=== PATIENT | female | born 1970 | race Caucasian/White ===

== ENCOUNTER 2017-01-20 17:29 | Inpatient (IN) ==
--- NOTE | 2017-01-20 18:48 | Emergency Department Note ---
Disposition Clinical Impression: Suicidal ideation Depression Qualifiers: Depression Type: major depressive disorder Major depression recurrence: recurrent Active/Remission status: currently active Major depression episode severity: moderate Qualified Code(s): F33.1 - Major depressive disorder, recurrent, moderate Disposition: Admitted As Inpatient Referrals: NO,PCP [Primary Care Provider] - Forms: ED Satisfaction Letter Time of Disposition: 22:51 General Adult HPI - General Chief complaint: ED Psychiatric Symptoms Stated complaint: SI Time Seen by Provider: 01/20/17 17:46 Source: patient Limitations: no limitations Nursing Notes Reviewed: Yes Vital Signs Reviewed: Yes - History of Present Illness HPI Narrative: History of present illness: 47-year-old female presents with family to the emergency department with chief complaint of depression and suicidal ideations. Patient has been depressed for 2-3 months since tried on several attempts in the past with intentional overdose. She says that she is getting worse has not ingested anything today. Feels like she cannot cope anymore. He has stopped taking her antidepressant medication for the past month or so. And currently does not have a counselor. She follows up with a primary care provider Dr. Langford. Patient here for further evaluation. Pain Scale: 10 - Related Data Home Medications Medication Instructions Recorded Confirmed Naproxen [Naprosyn] 500 mg PO BID PRN 07/14/16 07/14/16 Allergies Allergy/AdvReac Type Severity Reaction Status Date / Time No Known Allergies Allergy Verified 07/13/16 22:33 All systems ED: reviewed and negative except as stated. Psychiatric: Reports: depression, suicidal thoughts. Denies: homicidal thoughts , auditory hallucinations Past Medical History - Past Medical History Attestation: Yes The following information was validated with the patient. Source: patient, old records reviewed Medical history: Reports: asthma, diabetes, hypertension, thyroid disease Surgical history: Reports: cholecystectomy, other Psychiatric history: Reports: anxiety, depression - Social History Smoking Status: Current every day smoker Smokeless Tobacco Status: No Alcohol use: Reports: none Drug use: Reports: marijuana Physical Exam - General Limitations: no limitations General appearance: alert, anxious, in distress - Head Head exam: atraumatic, normocephalic - Eye Eye exam: Present: normal appearance, PERRL, EOMI - ENT ENT exam: normal exam, normal oropharynx - Neck Neck exam: Present: normal inspection, full ROM - Chest Chest inspection: Present: normal inspection, symmetric chest wall rise - Respiratory Respiratory exam: Present: normal lung sounds bilaterally - Cardiovascular Cardiovascular exam: Present: regular rate, normal rhythm - Abdominal Exam Abdominal exam: Present: soft, Non-Tender - Extremities Exam Extremities exam: Present: normal inspection, full ROM - Expanded Lower Extremity Exam Neurovascular/Tendon exam: Present: normal capillary refill Gait: observed and normal - Back Exam Back exam: Present: normal inspection, full ROM - Neurological Exam Neurological exam: Present: alert, oriented X3, CN II-XII intact - Psychiatric Psychiatric exam: Present: depressed Course - Reevaluation(s) Reevaluation #1: Patient's physical examination is benign she is tearful and upset but cooperative. Patient will undergo medical clearance and then be evaluated by the mental health service. Disposition pending. Patient stable. Time: 18:47 Reevaluation #2: ED workup is complete. Urinalysis positive for marijuana and cocaine. Calls being made to mental health for evaluation. Patient resting in bed comfortably disposition pending. Patient is currently medically cleared for mental health evaluation Time: 20:09 Reevaluation #3: Patient was evaluated by mental health services and determined to require inpatient observation and management and treatment. Patient was previously accepted by the psychiatric attending DR. OMALLEY Time: 22:48 Vital Signs Temperature 97.5 F L 01/20/17 17:40 Pulse Rate 85 01/20/17 17:40 Respiratory Rate 16 01/20/17 17:40 Blood Pressure 207/103 01/20/17 17:40 O2 Sat by Pulse Oximetry 94 01/20/17 17:40 Temperature 97.5 F L 01/20/17 17:40 Pulse Rate 85 01/20/17 17:40 Respiratory Rate 16 01/20/17 17:40 Blood Pressure 207/103 01/20/17 17:40 O2 Sat by Pulse Oximetry 94 01/20/17 17:40 Oxygen Delivery Oxygen Delivery Room Air Medical Decision Making - Lab Data Result diagrams: 01/20/17 18:44 01/20/17 18:44 Lab Results 01/20/17 01/20/17 01/20/17 Range/Units 18:44 18:44 19:40 WBC 10.1 (4.3-11.1) K/mcL RBC 5.82 H (3.82-4.97) M/mcL Hgb 16.1 H (11.5-15.4) g/dL Hct 49.4 H (35.3-44.9) % MCV 84.9 (83.0-100.0) fL MCH 27.7 L (28.0-33.3) pg MCHC 32.6 (31.6-35.5) g/dL RDW 13.4 (11.5-14.5) % Plt Count 314 (140-400) K/mcL MPV 10.5 (9.4-12.4) fL Immature Gran % 0.4 (0-4) % Seg Neutrophils % 62.5 % Lymphocytes % 28.4 % Monocytes % 7.2 % Eosinophils % 0.8 % Basophils % 0.7 % Neutrophils # 6.3 (1.6-8.9) K/mcL Lymphocytes # 2.9 (0.6-4.6) K/mcL Monocytes # 0.7 (0.0-1.3) K/mcL Eosinophils # 0.1 (0.0-0.6) K/mcL Basophils # 0.1 (0.0-0.2) K/mcL Sodium 141 (136-145) mEq/L Potassium 3.9 (3.5-4.5) mEq/L Chloride 109 (98-109) mEq/L Carbon Dioxide 23 (19-29) mEq/L BUN 13 (7-20) mg/dL Creatinine 0.94 (0.57-1.11) mg/dL Est GFR ( Amer) > 60 (> 60) Est GFR (Non-Af Amer) > 60 (> 60) BUN/Creatinine Ratio 14 (6-26) Glucose 96 (70-99) mg/dL Calculated Osmolality 292 (280-300) Calcium 9.3 (8.6-10.8) mg/dL Urine Color Yellow (Yellow) Urine Clarity Cloudy A (Clear) Urine pH 5.5 (5.0-8.0) pH Units Ur Specific [place] 1.022 (1.010-1.025) Urine Protein Negative (Neg-Trace) mg/dL Urine Glucose (UA) Normal (Normal) mg/dL Urine Ketones Negative (Negative) mg/dL Urine Blood Negative (Negative) Urine Nitrite Negative (Negative) Urine Bilirubin Negative (Negative) Urine Urobilinogen Normal (Normal) mg/dL Ur Leukocyte Esterase Moderate H (Negative) Urine Microscopic RBC 0-3 (0-3) per hpf Urine Microscopic WBC 15-30 H (0-3) per hpf Ur Squamous Epith Cells Many H (None-Few) per lpf Urine Bacteria None Seen (None-Few) per hpf Hyaline Casts None Seen (None-Few) per lpf Salicylates < 5.0 L (15-30) mg/dL Urine Opiates Screen (Nbnabq=587) ng/mL Acetaminophen < 1.0 L (10-30) mcg/mL Ur Barbiturates Screen (Ehpoyn=078) ng/mL Ur Phencyclidine Scrn (Cutoff=25) ng/mL Ur Amphetamines Screen (Aagokh=7723) ng/mL U Benzodiazepines Scrn (Ijxrns=821) ng/mL Urine Cocaine Screen (Cutoff= 300) ng/mL U Marijuana (THC) Screen (Cutoff = 50) ng/mL Ethyl Alcohol < 10 (0-10) mg/dL 01/20/17 Range/Units 19:40 WBC (4.3-11.1) K/mcL RBC (3.82-4.97) M/mcL Hgb (11.5-15.4) g/dL Hct (35.3-44.9) % MCV (83.0-100.0) fL MCH (28.0-33.3) pg MCHC (31.6-35.5) g/dL RDW (11.5-14.5) % Plt Count (140-400) K/mcL MPV (9.4-12.4) fL Immature Gran % (0-4) % Seg Neutrophils % % Lymphocytes % % Monocytes % % Eosinophils % % Basophils % % Neutrophils # (1.6-8.9) K/mcL Lymphocytes # (0.6-4.6) K/mcL Monocytes # (0.0-1.3) K/mcL Eosinophils # (0.0-0.6) K/mcL Basophils # (0.0-0.2) K/mcL Sodium (136-145) mEq/L Potassium (3.5-4.5) mEq/L Chloride (98-109) mEq/L Carbon Dioxide (19-29) mEq/L BUN (7-20) mg/dL Creatinine (0.57-1.11) mg/dL Est GFR ( Amer) (> 60) Est GFR (Non-Af Amer) (> 60) BUN/Creatinine Ratio (6-26) Glucose (70-99) mg/dL Calculated Osmolality (280-300) Calcium (8.6-10.8) mg/dL Urine Color (Yellow) Urine Clarity (Clear) Urine pH (5.0-8.0) pH Units Ur Specific [place] (1.010-1.025) Urine Protein (Neg-Trace) mg/dL Urine Glucose (UA) (Normal) mg/dL Urine Ketones (Negative) mg/dL Urine Blood (Negative) Urine Nitrite (Negative) Urine Bilirubin (Negative) Urine Urobilinogen (Normal) mg/dL Ur Leukocyte Esterase (Negative) Urine Microscopic RBC (0-3) per hpf Urine Microscopic WBC (0-3) per hpf Ur Squamous Epith Cells (None-Few) per lpf Urine Bacteria (None-Few) per hpf Hyaline Casts (None-Few) per lpf Salicylates (15-30) mg/dL Urine Opiates Screen Negative (Jojelj=200) ng/mL Acetaminophen (10-30) mcg/mL Ur Barbiturates Screen Negative (Kvfzvs=592) ng/mL Ur Phencyclidine Scrn Negative (Cutoff=25) ng/mL Ur Amphetamines Screen Negative (Zyqwqq=1474) ng/mL U Benzodiazepines Scrn Negative (Lsjbqs=477) ng/mL Urine Cocaine Screen Positive H (Cutoff= 300) ng/mL U Marijuana (THC) Screen Positive H (Cutoff = 50) ng/mL Ethyl Alcohol (0-10) mg/dL
[2017-01-20 18:52] LABS: Basophils # 0.1 K/mcL (0.0-0.2); Basophils % 0.7 %; Eosinophils # 0.1 K/mcL (0.0-0.6); Eosinophils % 0.8 %; Hematocrit 49.4 % (35.3-44.9); Hemoglobin 16.1 g/dL (11.5-15.4); Immature Granulocytes % 0.4 % (0-4); Lymphocytes # 2.9 K/mcL (0.6-4.6); Lymphocytes % 28.4 %; Mean Corpuscular HGB Conc 32.6 g/dL (31.6-35.5); Mean Corpuscular Hemoglobin 27.7 pg (28.0-33.3); Mean Corpuscular Volume 84.9 fL (83.0-100.0); Mean Platelet Volume 10.5 fL (9.4-12.4); Monocytes # 0.7 K/mcL (0.0-1.3); Monocytes % 7.2 %; Neutrophils # 6.3 K/mcL (1.6-8.9); Platelet Count 314 K/mcL (140-400); Red Blood Count 5.82 M/mcL (3.82-4.97); Red Cell Distribution Width 13.4 % (11.5-14.5); Segmented Neutrophils % 62.5 %
[2017-01-20 19:04] LABS: BUN/Creatinine Ratio 14 (6-26); Blood Urea Nitrogen 13 mg/dL (7-20); Calcium 9.3 mg/dL (8.6-10.8); Carbon Dioxide 23 mEq/L (19-29); Chloride 109 mEq/L (98-109); Glucose 96 mg/dL (70-99); Osmolality,Calculated 292 (280-300); Potassium 3.9 mEq/L (3.5-4.5); Sodium 141 mEq/L (136-145); eGFR For African Americans > 60 (> 60); eGFR For Non-African Americans > 60 (> 60)
[2017-01-20 19:05] LABS: Acetaminophen < 1.0 mcg/mL (10-30); Ethanol < 10 mg/dL (0-10); Salicylate < 5.0 mg/dL (15-30)
[2017-01-20 19:50] LABS: Bilirubin,Urine Negative (Negative); Blood,Urine Negative (Negative); Clarity,Urine Cloudy (Clear); Color,Urine Yellow (Yellow); Glucose,Urine (UA) Normal (Normal); Ketones,Urine Negative (Negative); Leukocyte Esterase,Urine Moderate (Negative); Nitrite,Urine Negative (Negative); PH,Urine 5.5 pH Units (5.0-8.0); Protein,Urine Negative (Neg-Trace); Specific Gravity,Urine 1.022 (1.010-1.025); Urobilinogen,Urine Normal (Normal)
[2017-01-20 19:51] LABS: Bacteria,Urine None Seen per hpf (None-Few); Hyaline Casts,Urine None Seen per lpf (None-Few); RBC,Urine 0-3 per hpf (0-3); Squamous Epithelial Cell,Urine Many per lpf (None-Few); WBC,Urine 15-30 per hpf (0-3)
[2017-01-20 19:55] LABS: Amphetamine Screen,Urine Negative ng/mL (Cutoff=1000); Barbiturate Screen,Urine Negative ng/mL (Cutoff=200); Benzodiazepines Screen,Urine Negative ng/mL (Cutoff=200); Cannabinoid Screen,Urine Positive ng/mL (Cutoff = 50); Cocaine Screen,Urine Positive ng/mL (Cutoff= 300); Opiate Screen,Urine Negative ng/mL (Cutoff=300); Phencyclidine Screen,Urine Negative ng/mL (Cutoff=25)
[2017-01-20] MEDS ORDERED: *HR* LORazepam 1 MG TABLET PO PRN (23:57)
[2017-01-20] MEDS ORDERED: *HR* LORazepam 2 MG/ML VIAL IM PRN (23:57)
[2017-01-20] MEDS ORDERED: MOM Conc 10 ML UD.LIQ PO PRN (23:57)
[2017-01-20] MEDS ORDERED: Haloperidol Lactate 5 MG/ML VIAL IM PRN (23:57)
[2017-01-20] MEDS ORDERED: Mag Hydrox/Al Hydrox/Simeth 30 ML UDC PO PRN (23:57)
[2017-01-21] MEDS: traZODone 50 MG TABLET PO PRN ×2 (03:12→21:28)
[2017-01-21] MEDS: hydrOXYzine pamoate 25 MG CAPSULE PO PRN ×2 (03:12→21:29)
[2017-01-21] MEDS: Nicotine 21 MG PATCH.TD24 TD SCH (09:43)
--- NOTE | 2017-01-21 11:18 | Psychiatry History & Physical ---
Date of Encounter: 01/21/17 Time of Encounter: 10:40 History of Present Illness Patient Stated Chief Complaint: Suicidal ideation Medicare Admission Attestation: For traditional Medicare patients the provided hospital inpatient services are reasonable and necessary and in the case of services not specified as inpatient -only under 42 CFR 419.22 (n), that they are appropriately provided as inpatient services in accordance 42 CFR 412.3. For Critical Access Hospital the patient may reasonably be expected to be discharged or transferred to a hospital within 96 hours after admission to the Critical Access Hospital. Admitted From: Emergency Dept History of Present Illness: Ms. Reis is a 47 year old female admitted from the emergency room for depression and suicidal ideation. Patient states that she was feeling depressed for the past year but became occupied with suicidal ideation for the last 2 months and attempted an overdose on muscle relaxants but she did not seek any medical attention help she she reported feeling depressed and has no energy she sleep at least 14 hours a day, she takes care or from mother and live with her and she depends on her mother for all her needs. UDS was positive for marijuana and cocaine. Patient has no previous psychiatric history treatment, she was given antidepressant by primary physician past which she stopped taking all her medication for the past couple of months including her thyroid medication. Patient feels helpless and hopeless and overwhelmed by her inability to be independent. 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 She smokes one pack per day cigarettes, she used some caffeine, denies any use of alcohol and occasionally smoke marijuana or use cocaine. Past Med Surg Social Fam HX - Past Medical History Medical history: asthma, diabetes, hypertension, thyroid disease - Past Psychiatric History Psychiatric history: Reports: no psych history - Past Surgical History Surgical History: cholecystectomy, other - Social History Smoking Status: Current every day smoker Smokeless Tobacco Status: No Alcohol use: none Drug use: marijuana - Family History Mother Adopted: Yes Family Member Ethnicity: Non- Living Status: Still Living Hx Family Cardiac Disorders: Yes (hypertension) Hx Family Endocrine Disorder: Yes (diabetes) Father Adopted: No Family Member Ethnicity: Non- Living Status: Hx Family Cardiac Disorders: Yes (hypertension, heart disease unspecified) Hx Family Cancer: Yes (kidney) Hx Family Endocrine Disorder: Yes (diabetes) Medications & Allergies Naproxen [Naprosyn] 500 mg PO BID PRN 07/14/16 [History] Allergies No Known Allergies Allergy (Verified 07/13/16 22:33) Review of Systems Psychiatric: Reports: depression, suicidal ideation, hopelessness Mental Status Exam Patient orientation: Yes Person, Yes Time, Yes Place Level of alertness: Alert Patient appearance: Appropriate, Unkempt, Disheveled, Obese Behavior: calm, cooperative Psychomotor activity: Slowed Eye contact: Minimal Contact Mood description: Depressed, Anxious Affect description: constricted, tearful, dysphoric, anxious Speech pattern: Normal rate, Normal rhythm, Normal tone Speech volume: Normal Thought process: Linear, Goal Oriented Thought content: Yes Suicidal ideation, No Homicidal ideation, No Overt delusions Perceptual disturbances: No Auditory hallucinations, No Visual hallucinations Attention span: Capable of Focused Attention Memory description: Grossly Intact Patient reliability: Reliable Historian Intelligence estimate: Average Judgment: Limited Insight: Partial Results - Vital Signs Vital signs: Temp Pulse Resp BP Pulse Ox 97.4 F L 87 16 169/94 96 01/21/17 09:00 01/21/17 09:00 01/21/17 09:00 01/21/17 09:00 01/20/17 22:49 - Labs Labs: Laboratory Last Values WBC 10.1 K/mcL (4.3-11.1) 01/20/17 18:44 RBC 5.82 M/mcL (3.82-4.97) H 01/20/17 18:44 Hgb 16.1 g/dL (11.5-15.4) H 01/20/17 18:44 Hct 49.4 % (35.3-44.9) H 01/20/17 18:44 MCV 84.9 fL (83.0-100.0) 01/20/17 18:44 MCH 27.7 pg (28.0-33.3) L 01/20/17 18:44 MCHC 32.6 g/dL (31.6-35.5) 01/20/17 18:44 RDW 13.4 % (11.5-14.5) 01/20/17 18:44 Plt Count 314 K/mcL (140-400) 01/20/17 18:44 MPV 10.5 fL (9.4-12.4) 01/20/17 18:44 Immature Gran % 0.4 % (0-4) 01/20/17 18:44 Seg Neutrophils % 62.5 % 01/20/17 18:44 Lymphocytes % 28.4 % 01/20/17 18:44 Monocytes % 7.2 % 01/20/17 18:44 Eosinophils % 0.8 % 01/20/17 18:44 Basophils % 0.7 % 01/20/17 18:44 Neutrophils # 6.3 K/mcL (1.6-8.9) 01/20/17 18:44 Lymphocytes # 2.9 K/mcL (0.6-4.6) 01/20/17 18:44 Monocytes # 0.7 K/mcL (0.0-1.3) 01/20/17 18:44 Eosinophils # 0.1 K/mcL (0.0-0.6) 01/20/17 18:44 Basophils # 0.1 K/mcL (0.0-0.2) 01/20/17 18:44 Sodium 141 mEq/L (136-145) 01/20/17 18:44 Potassium 3.9 mEq/L (3.5-4.5) 01/20/17 18:44 Chloride 109 mEq/L (98-109) 01/20/17 18:44 Carbon Dioxide 23 mEq/L (19-29) 01/20/17 18:44 BUN 13 mg/dL (7-20) 01/20/17 18:44 Creatinine 0.94 mg/dL (0.57-1.11) 01/20/17 18:44 Est GFR ( Amer) > 60 (> 60) 01/20/17 18:44 Est GFR (Non-Af Amer) > 60 (> 60) 01/20/17 18:44 BUN/Creatinine Ratio 14 (6-26) 01/20/17 18:44 Glucose 96 mg/dL (70-99) 01/20/17 18:44 Calculated Osmolality 292 (280-300) 01/20/17 18:44 Calcium 9.3 mg/dL (8.6-10.8) 01/20/17 18:44 TSH 2.875 mcIU/mL (0.350-4.840) 01/20/17 18:44 Urine Color Yellow (Yellow) 01/20/17 19:40 Urine Clarity Cloudy (Clear) A 01/20/17 19:40 Urine pH 5.5 pH Units (5.0-8.0) 01/20/17 19:40 Ur Specific Page 1.022 (1.010-1.025) 01/20/17 19:40 Urine Protein Negative mg/dL (Neg-Trace) 01/20/17 19:40 Urine Glucose (UA) Normal mg/dL (Normal) 01/20/17 19:40 Urine Ketones Negative mg/dL (Negative) 01/20/17 19:40 Urine Blood Negative (Negative) 01/20/17 19:40 Urine Nitrite Negative (Negative) 01/20/17 19:40 Urine Bilirubin Negative (Negative) 01/20/17 19:40 Urine Urobilinogen Normal mg/dL (Normal) 01/20/17 19:40 Ur Leukocyte Esterase Moderate (Negative) H 01/20/17 19:40 Urine Microscopic RBC 0-3 per hpf (0-3) 01/20/17 19:40 Urine Microscopic WBC 15-30 per hpf (0-3) H 01/20/17 19:40 Ur Squamous Epith Cells Many per lpf (None-Few) H 01/20/17 19:40 Urine Bacteria None Seen per hpf (None-Few) 01/20/17 19:40 Hyaline Casts None Seen per lpf (None-Few) 01/20/17 19:40 Salicylates < 5.0 mg/dL (15-30) L 01/20/17 18:44 Urine Opiates Screen Negative ng/mL (Crsiec=411) 01/20/17 19:40 Acetaminophen < 1.0 mcg/mL (10-30) L 01/20/17 18:44 Ur Barbiturates Screen Negative ng/mL (Pcbjvx=087) 01/20/17 19:40 Ur Phencyclidine Scrn Negative ng/mL (Cutoff=25) 01/20/17 19:40 Ur Amphetamines Screen Negative ng/mL (Soqfei=0712) 01/20/17 19:40 U Benzodiazepines Scrn Negative ng/mL (Tjduuv=633) 01/20/17 19:40 Urine Cocaine Screen Positive ng/mL (Cutoff= 300) H 01/20/17 19:40 U Marijuana (THC) Screen Positive ng/mL (Cutoff = 50) H 01/20/17 19:40 Ethyl Alcohol < 10 mg/dL (0-10) 01/20/17 18:44 Assessment and Plan (1) Severe major depression, single episode, without psychotic features Current visit: Yes Status: Acute Plan: Admit inpatient for safety and stabilization, Close observation, Suicide Precautions per unit protocol, Encourage participation in unit milieu, Group Therapy, Monitor sleep, Monitor appetite Additional Plan: Discussed with the patient treatment plan, we will start Wellbutrin SR 150 mg daily and Celexa 20 mg daily, benefits and side effects were discussed and she is agreeable to start treatment and will monitor. Risks, benefits, side effects, alternatives discussed w/pt: Yes Patient agreeable to treatment: Yes Estimated Length of Stay (Days): 5
[2017-01-21] MEDS: BuPROPion SR (12 HR) 150 MG TABLET PO SCH (11:47)
[2017-01-22] MEDS: Nicotine 21 MG PATCH.TD24 TD SCH (09:06)
[2017-01-22] MEDS: BuPROPion SR (12 HR) 150 MG TABLET PO SCH (09:06)
--- NOTE | 2017-01-22 16:39 | Psychiatry Progress Note ---
Date of Encounter: 01/22/17 Time of Encounter: 16:00 Subjective Interval history: Patient seen for follow-up. She reports improved energy and quality of sleep, she is not lethargic and attended groups and she is motivated to learn coping skills that help her become independent. Denies suicidal ideation and tolerating medication without side effects. Review of Systems Psychiatric: Reports: depression, suicidal ideation, hopelessness Objective: Exam Patient orientation: Yes Person, Yes Time, Yes Place Level of alertness: Alert Patient appearance: Appropriate, Well Groomed, Obese Behavior: calm, cooperative Psychomotor activity: Normal Eye contact: Maintains Eye Contact Mood description: Euthymic/stable Affect description: congruent with mood, full range Speech pattern: Normal rate, Normal rhythm, Normal tone Speech volume: Normal Thought process: Linear, Goal Oriented Thought content: No Suicidal ideation, No Homicidal ideation, No Overt delusions Perceptual disturbances: No Auditory hallucinations, No Visual hallucinations Judgment: Fair Insight: Partial Results - Vital Signs Vital Signs: Temp Pulse Resp BP Pulse Ox 97.8 F 79 16 163/84 96 01/22/17 09:00 01/22/17 09:00 01/22/17 09:00 01/22/17 09:00 01/20/17 22:49 Assessment and Plan (1) Severe major depression, single episode, without psychotic features Current visit: Yes Status: Acute Risks, benefits, side effects, alternatives discussed w/pt: Yes Patient agreeable to treatment: Yes Consult Discharge Plan - Plan Referrals: [facility] [Outside] - 02/06/17 11:00 am (The above appointment is with psychiatrist, Dr. Dye. Please arrive 30 minutes early for this appointment to complete paperwork. This is the first available appointment. You may contact the office regularly to check for cancellations that may allow you to be seen sooner. Office staff will contact you directly to schedule your intake appointment for counseling/case management services. ) Mick Langford MD [Partnered Physician] - 01/30/17 10:45 am (The above appointment is with Dr. Langford.)
[2017-01-22] MEDS: hydrOXYzine pamoate 25 MG CAPSULE PO PRN (20:59)
[2017-01-22] MEDS: traZODone 50 MG TABLET PO PRN (20:59)
[2017-01-23] MEDS: Nicotine 21 MG PATCH.TD24 TD SCH (08:43)
[2017-01-23] MEDS: BuPROPion SR (12 HR) 150 MG TABLET PO SCH (08:43)
[2017-01-23] MEDS: hydrOXYzine pamoate 25 MG CAPSULE PO PRN (21:13)
[2017-01-23] MEDS: traZODone 50 MG TABLET PO PRN (21:13)
[2017-01-24 09:10] VITALS: BP 125/71
[2017-01-24] MEDS: BuPROPion SR (12 HR) 150 MG TABLET PO SCH (09:26)
[2017-01-24] MEDS: Nicotine 21 MG PATCH.TD24 TD SCH (09:26)
--- NOTE | 2017-01-24 15:30 | Discharge Summary ---
Date of Encounter: 01/24/17 Time of Encounter: 15:15 Diagnosis - Discharge Diagnosis (1) Severe major depression, single episode, without psychotic features Status: Acute Medications - Discharge Medications Prescriptions: BuPROPion SR (12 HR) [Wellbutrin SR] 150 mg PO DAILY #30 tablet.er Citalopram [CeleXA] 20 mg PO DAILY #30 tablet traZODone [TraZODone] 50 mg PO HS #30 tablet Naproxen [Naprosyn] 500 mg PO BID PRN 07/14/16 [History] Albuterol Sulfate [Ventolin Hfa] 2 puff IH Q4H PRN 01/21/17 [History] BuPROPion SR (12 HR) [Wellbutrin SR] 150 mg PO DAILY #30 tablet.er 01/24/17 [Rx] Citalopram [CeleXA] 20 mg PO DAILY #30 tablet 01/24/17 [Rx] traZODone [TraZODone] 50 mg PO HS #30 tablet 01/24/17 [Rx] Allergies No Known Allergies Allergy (Verified 07/13/16 22:33) Provider Date of admission: 01/20/17 23:19 Primary care physician: PCP NO Discharging clinician: Vini Fontanez Assessment and Plan - Patient/Caregiver Discharge Instructions Activity: resume usual activities as tolerated Diet: regular diet - Follow up Plan Follow up with: [facility] [Outside] - 02/06/17 11:00 am (The above appointment is with psychiatrist, Dr. Dye. Please arrive 30 minutes early for this appointment to complete paperwork. This is the first available appointment. You may contact the office regularly to check for cancellations that may allow you to be seen sooner. Office staff will contact you directly to schedule your intake appointment for counseling/case management services. ) Mick Langford MD [Partnered Physician] - 01/30/17 10:45 am (The above appointment is with Dr. Langford.) Functional capacity at discharge: independent ambulation Overall status at discharge: Stable Disposition: Home, Self-Care Hospital Course Hospital course: Ms. Reis is a 47 year old female admitted for depression and suicidal ideation. For details of the admission please see H&P On the units patient was started on Wellbutrin XL 150 mg daily in addition to Celexa 20 mg daily and was given trazodone at bedtime. Patient responded well to medication she reported improved sleep and more energy she was able to stay up all day without taking any naps, she participated in groups and activities. She was educated about medication compliance and substance abuse. Her discharge plans were completed by social work. On discharge patient was medically stable, nonsuicidal and future oriented and well motivated to continue her treatment as outpatient. - Time Spent with Patient Total time spent providing and/or coordinating discharge services: Greater than 30 minutes Quality - Multiple Antipsychotics Patient discharged on 2 or more antipsychotic medications: No Procedures - Procedures Procedures: Medication Management, Crisis Stabilization, Supportive Therapy, Group Therapy, Psychoeducational Therapy Mental Status Exam - Mental Status Exam Patient orientation: Yes Person, Yes Time, Yes Place Level of alertness: Alert Patient appearance: Appropriate, Well Groomed, Obese Behavior: calm, cooperative Psychomotor activity: Normal Eye contact: Maintains Eye Contact Mood description: Euthymic/stable Affect description: congruent with mood, full range Speech pattern: Normal rate, Normal rhythm, Normal tone Speech Volume: Normal Thought process: Linear, Goal Oriented Thought Content: No Suicidal ideation, No Homicidal ideation, No Overt delusions Perceptual Disturbances: No Auditory hallucinations, No Visual hallucinations Judgment: Limited Insight: Partial
== END 2017-01-24 16:45 | disposition home or self-care (01) | DRG 751 ==
LOC: EMEROO 17:29 → 1ANU 23:19
PROVIDERS: ADMIT Psychiatry & Neurology Psychiatry; ATTEND Psychiatry & Neurology Psychiatry

== ENCOUNTER 2017-05-23 01:27 | Inpatient (IN) ==
--- NOTE | 2017-05-23 01:40 | Emergency Department Note ---
Disposition Clinical Impression: Asthma exacerbation Disposition: Admitted As Inpatient Condition: Fair Time of Disposition: 03:50 SOB HPI - General Chief Complaint: ED Shortness of Breath/Dyspnea Stated Complaint: shortness of breath Time Seen by Provider: 05/23/17 01:37 Source: patient Mode of arrival: ambulatory Limitations: no limitations Nursing Notes Reviewed: Yes Vital Signs Reviewed: Yes - History of Present Illness Patient is a 47-year-old female with past medical history of HTN, DM, asthma. She presents today due to rhinorrhea, sore throat, cough, wheeze. Patient says that she has had an episode like this in the past and had to be admitted due to asthma exacerbation. Denies any fevers, nausea, vomiting, abdominal pain, chest pain. She has tried albuterol at home without any relief. - Related Data Home Medications Medication Instructions Recorded Confirmed Naproxen [Naprosyn] 500 mg PO BID PRN 07/14/16 01/21/17 Albuterol Sulfate [Ventolin Hfa] 2 puff IH Q4H PRN 01/21/17 01/21/17 Previous Rx's Medication Instructions Recorded BuPROPion SR (12 HR) [Wellbutrin 150 mg PO DAILY #30 tablet.er 01/24/17 SR] Citalopram [CeleXA] 20 mg PO DAILY #30 tablet 01/24/17 traZODone [TraZODone] 50 mg PO HS #30 tablet 01/24/17 Allergies Allergy/AdvReac Type Severity Reaction Status Date / Time No Known Allergies Allergy Verified 05/23/17 01:33 All systems ED: reviewed and negative except as stated. Constitutional: Denies: fever Cardiovascular: Denies: chest pain Respiratory: Reports: cough, dyspnea Gastrointestinal: Denies: abdominal pain, nausea, vomiting Past Medical History - Past Medical History Attestation: Yes The following information was validated with the patient. Source: patient Medical history: Reports: asthma, diabetes, hypertension, thyroid disease Surgical history: Reports: cholecystectomy, other Psychiatric history: Reports: no psych history - Social History Smoking Status: Current every day smoker Smokeless Tobacco Status: No Alcohol use: Reports: none Drug use: Reports: marijuana Physical Exam - General Limitations: no limitations General appearance: alert - Head Head exam: atraumatic, normocephalic, normal inspection - Eye Eye exam: Present: normal appearance, PERRL, EOMI - ENT ENT exam: normal exam, normal oropharynx, mucous membranes moist - Neck Neck exam: Present: normal inspection, full ROM, trachea midline - Chest Chest inspection: Present: normal inspection, symmetric chest wall rise - Respiratory Respiratory exam: Present: wheezes (Wheezes in all lung chen. Mildly labored breathing) - Cardiovascular Cardiovascular exam: Present: regular rate, normal rhythm, normal heart sounds - Abdominal Exam Abdominal exam: Present: soft, Non-Tender. Absent: tenderness, distention, guarding, rebound, rigidity - Extremities Exam Extremities exam: Present: normal inspection, full ROM. Absent: tenderness, pedal edema - Neurological Exam Neurological exam: Present: alert, oriented X3 - Psychiatric Psychiatric exam: Present: normal affect, normal mood - Skin Skin exam: Present: warm, dry, intact, normal color, other (Fleabites present on bilateral lower extremities.) Course Course Narrative: Patient mildly hypertensive. The rest of the vitals within normal limits. Physical exam shows wheezes in all lung chen, mildly labored breathing. Otherwise, the rest of the physical exam was fairly benign. Mild nasal congestion. EKG shows normal sinus rhythm with no acute ST elevation or depression. We will give the patient Solu-Medrol, DuoNeb 3. We will also obtain troponin, basic blood work. 03:48 EKG shows normal sinus rhythm with no acute ST changes. Troponin negative. Chest x-ray negative for any acute cardiopulmonary process. However , there is a left lung nodule that will need to be followed up on. Mild elevation in white blood cell count. Patient was reassessed after breathing treatments. She is satting only 91% on room air, still conversationally dyspneic. We will admit the patient for further care due to asthma exacerbation. Chest X-Ray 05/23/17 01:35 IMPRESSION: Possible left lung nodule versus artifact. Outpatient chest CT is recommended for further evaluation. D/ / Hilton Arzola MD / Hilton Arzola MD Interpreting Provider: Hilton Arzola MD Vital Signs Temperature 97.9 F 05/23/17 01:27 Pulse Rate 94 05/23/17 01:27 Respiratory Rate 18 05/23/17 01:27 Blood Pressure 151/94 05/23/17 01:27 O2 Sat by Pulse Oximetry 91 05/23/17 01:27 Temperature 98.1 F 05/23/17 04:57 Pulse Rate 79 05/23/17 04:57 Respiratory Rate 18 05/23/17 04:57 Blood Pressure 153/83 05/23/17 04:57 O2 Sat by Pulse Oximetry 94 05/23/17 04:57 Oxygen Delivery Oxygen Delivery Room Air Shortness of Breath/Dyspnea - MDM Narrative Medical decision making narrative: EKG shows normal sinus rhythm with no acute ST changes. Troponin negative. Chest x-ray negative for any acute cardiopulmonary process. However, there is a left lung nodule that will need to be followed up on. Mild elevation in white blood cell count. Patient was reassessed after breathing treatments. She is satting only 91% on room air, still conversationally dyspneic. We will admit the patient for further care due to asthma exacerbation. - Medical Records Medical records reviewed: Yes I reviewed the patient's medical records. - Lab Data Lab results reviewed: Yes I reviewed the patient's lab results. Result diagrams: 05/23/17 01:59 05/23/17 01:59 Lab Results 05/23/17 05/23/17 05/23/17 Range/Units 01:59 01:59 01:59 WBC 12.0 H (4.3-11.1) K/mcL RBC 5.24 H (3.82-4.97) M/mcL Hgb 14.6 (11.5-15.4) g/dL Hct 44.8 (35.3-44.9) % MCV 85.5 (83.0-100.0) fL MCH 27.9 L (28.0-33.3) pg MCHC 32.6 (31.6-35.5) g/dL RDW 13.4 (11.5-14.5) % Plt Count 274 (140-400) K/mcL MPV 11.1 (9.4-12.4) fL Immature Gran % 0.2 (0-4) % Seg Neutrophils % 63.0 % Lymphocytes % 29.3 % Monocytes % 6.7 % Eosinophils % 0.4 % Basophils % 0.4 % Neutrophils # 7.6 (1.6-8.9) K/mcL Lymphocytes # 3.5 (0.6-4.6) K/mcL Monocytes # 0.8 (0.0-1.3) K/mcL Eosinophils # 0.1 (0.0-0.6) K/mcL Basophils # 0.1 (0.0-0.2) K/mcL Sodium 140 (136-145) mEq/L Potassium 4.3 (3.5-4.5) mEq/L Chloride 108 (98-109) mEq/L Carbon Dioxide 18 L (19-29) mEq/L BUN 16 (7-20) mg/dL Creatinine 1.24 H (0.57-1.11) mg/dL Est GFR ( Amer) 56 L (> 60) Est GFR (Non-Af Amer) 46 L (> 60) BUN/Creatinine Ratio 13 (6-26) Glucose 126 H (70-99) mg/dL Calculated Osmolality 293 (280-300) Lactic Acid (0.5-2.2) mmol/L Calcium 9.2 (8.6-10.8) mg/dL Troponin I 0.00 (0-0.03) ng/mL B-Natriuretic Peptide (0-100) pg/mL 05/23/17 05/23/17 Range/Units 01:59 01:59 WBC (4.3-11.1) K/mcL RBC (3.82-4.97) M/mcL Hgb (11.5-15.4) g/dL Hct (35.3-44.9) % MCV (83.0-100.0) fL MCH (28.0-33.3) pg MCHC (31.6-35.5) g/dL RDW (11.5-14.5) % Plt Count (140-400) K/mcL MPV (9.4-12.4) fL Immature Gran % (0-4) % Seg Neutrophils % % Lymphocytes % % Monocytes % % Eosinophils % % Basophils % % Neutrophils # (1.6-8.9) K/mcL Lymphocytes # (0.6-4.6) K/mcL Monocytes # (0.0-1.3) K/mcL Eosinophils # (0.0-0.6) K/mcL Basophils # (0.0-0.2) K/mcL Sodium (136-145) mEq/L Potassium (3.5-4.5) mEq/L Chloride (98-109) mEq/L Carbon Dioxide (19-29) mEq/L BUN (7-20) mg/dL Creatinine (0.57-1.11) mg/dL Est GFR ( Amer) (> 60) Est GFR (Non-Af Amer) (> 60) BUN/Creatinine Ratio (6-26) Glucose (70-99) mg/dL Calculated Osmolality (280-300) Lactic Acid 1.3 (0.5-2.2) mmol/L Calcium (8.6-10.8) mg/dL Troponin I (0-0.03) ng/mL B-Natriuretic Peptide 22 (0-100) pg/mL - Radiology Data Radiology results reviewed: Yes I reviewed the patient's radiology results. - EKG Data EKG attestation: Yes I reviewed and interpreted this EKG. [email or web address] - Romario Situation: Demographics, MOA Background: Presenting Complaint, Relevant PMH, Meds, & Allergies Assessment: Vital Signs, Course and respsone to treatment, Exam Concerns, Patient/Family Expectation, Pertinant Lab Results Recommendation: Barrier(s) to disposition, Recommendation based on pending studies, treatments, or consults [email or web address] Report Given to: Dr. Jony Doss Repor Time: 03:50 Attestation Statement - Attestation Attestation: I, Jose Reyes, examined this patient and my medical decision-making was reviewed with the SPEAKER MOUNTER/PA/Advanced Practice Nurse/Resident Physician. I agree with the documented findings, disposition and treatment plan as described except to the extent set forth below. 47-year-old female presents to emergency Department with concerns of difficulty in breathing. Patient states she has had increasing wheezing and a over the past few days prior to arrival. Patient states she has had a cough and sinus congestion and a history of asthma exacerbations. On physical exam patient is wheezing in the bilateral posterior lung chen. She is satting 90% on room air and is dyspneic with conversation. Chest x-ray did not show acute infiltrate. Patient will be given steroids and breathing treatments admitted to the hospital for further care and evaluation of asthma exacerbation.
[2017-05-23] MEDS ORDERED: Ipratropium/Albuterol Neb 3 ML IH ONE (01:47)
[2017-05-23] MEDS ORDERED: methylPREDNISolone 125 MG/2 ML VIAL IVP ONE (01:47)
[2017-05-23 02:05] LABS: Basophils # 0.1 K/mcL (0.0-0.2); Basophils % 0.4 %; Eosinophils # 0.1 K/mcL (0.0-0.6); Eosinophils % 0.4 %; Hematocrit 44.8 % (35.3-44.9); Hemoglobin 14.6 g/dL (11.5-15.4); Immature Granulocytes % 0.2 % (0-4); Lymphocytes # 3.5 K/mcL (0.6-4.6); Lymphocytes % 29.3 %; Mean Corpuscular HGB Conc 32.6 g/dL (31.6-35.5); Mean Corpuscular Hemoglobin 27.9 pg (28.0-33.3); Mean Corpuscular Volume 85.5 fL (83.0-100.0); Mean Platelet Volume 11.1 fL (9.4-12.4); Monocytes # 0.8 K/mcL (0.0-1.3); Monocytes % 6.7 %; Neutrophils # 7.6 K/mcL (1.6-8.9); Platelet Count 274 K/mcL (140-400); Red Blood Count 5.24 M/mcL (3.82-4.97); Red Cell Distribution Width 13.4 % (11.5-14.5)
[2017-05-23 02:45] LABS: Calcium 9.2 mg/dL (8.6-10.8)
[2017-05-23 02:47] LABS: Potassium 4.3 mEq/L (3.5-4.5)
[2017-05-23] MEDS ORDERED: 0.9 % Sodium Chloride 1,000 ML IVC SCH (04:00)
[2017-05-23] MEDS: Ipratropium/Albuterol Neb 3 ML IH PRN (08:10)
[2017-05-23] MEDS ORDERED: *HR* HYDROcodone/Acet 5/325 mg TABLET PO PRN (08:30)
[2017-05-23] MEDS ORDERED: *HR* Morphine 2 MG/ML SYRINGE IVP PRN (08:30)
[2017-05-23] MEDS ORDERED: Ondansetron 4 MG/2 ML VIAL IVP PRN (08:30)
[2017-05-23] MEDS ORDERED: Naloxone 0.4 MG/ML INJ IVP PRN (08:30)
--- NOTE | 2017-05-23 09:51 | Internal Med History&Physical ---
Date of Encounter: 05/23/17 Time of Encounter: 08:15 Assessment and Plan (1) Asthma with acute exacerbation in adult Current visit: No Status: Acute pt does have mild respiratory distress will admit the pt into Med surg Started her on high dise IV steroids placed on frequent bronchodilators and cont home INH steroids Currently on 2 lit O2.. she does not look hypoxic will try to wean her off the O2 on empirical abx Levofloxacin cont symptomatic and supportive care Qualifiers: Qualified Code(s): J45.41 - Moderate persistent asthma with (acute) exacerbation (2) Bronchitis Current visit: No Status: Acute she does have purulent bronchitis Reviewed CXR by myself- No infiltrates / consolidation Radiologist read at is eft mickey nodule vs artifact Recommend pt to f/u with PCP as an out pt for CT of chest for now cont empirical abx sent for sputum cx (3) Hypertension Current visit: No Status: Chronic resumed home meds Qualifiers: Hypertension type: essential hypertension Qualified Code(s): I10 - Essential (primary) hypertension (4) Hypothyroidism Current visit: No Status: Chronic resumed home meds Qualifiers: Hypothyroidism type: unspecified Qualified Code(s): E03.9 - Hypothyroidism , unspecified (5) Tobacco abuse Current visit: No Status: Chronic counseled to quit on nicotine patch (6) DVT prophylaxis Current visit: No Status: Acute on Lovenox SQ Internal Medicine - H&P: HPI Chief complaint: Shortness of breath Admitted From: Emergency Dept Plans for Post Hospital Care: Home History of present illness: Ms. Reis is a 47 year old female with known PMH of HTN, Asthma, Chronic tobacco dependence, anxiety pt presented to ER c/o worsening SOB , Cough with expectoration since y/d morning. She has been having some URI symptoms for last 5 days, which got worsened y/d. Denied any fever, however does c/o chills. No nausea vomiting. No CP. She does have flee bites all over the lower extremeties , c/o itching all over the body. Past Med Surg Social Fam HX - Past Medical History Medical history: asthma, diabetes, hypertension, thyroid disease Psychiatric history: no psych history - Past Surgical History Surgical History: cholecystectomy, other - Social History Smoking Status: Current every day smoker Packs per day: <1/2 Smokeless Tobacco Status: No Alcohol use: none Drug use: marijuana - Family History Mother Adopted: Yes Family Member Ethnicity: Non- Living Status: Still Living Hx Family Cardiac Disorders: Yes (hypertension) Hx Family Endocrine Disorder: Yes (diabetes) Father Adopted: No Family Member Ethnicity: Non- Living Status: Hx Family Cardiac Disorders: Yes (hypertension, heart disease unspecified) Hx Family Cancer: Yes (kidney) Hx Family Endocrine Disorder: Yes (diabetes) Internal Medicine - H&P: Meds Naproxen [Naprosyn] 500 mg PO BID PRN 07/14/16 [History] Albuterol Sulfate [Ventolin Hfa] 2 puff IH Q4H PRN 01/21/17 [History] Citalopram [CeleXA] 20 mg PO DAILY #30 tablet 01/24/17 [Rx] traZODone [TraZODone] 50 mg PO HS #30 tablet 01/24/17 [Rx] Beclomethasone Diprop 40mcg [QVAR 40 mcg] 1 puff IH BID 05/23/17 [History] BuPROPion SR (12 HR) [Wellbutrin SR] 150 mg PO BID 05/23/17 [History] Levothyroxine Sodium 75 mcg PO DAILY 05/23/17 [History] Lisinopril [Zestril] 20 mg PO DAILY 05/23/17 [History] Triamcinolone Acetonide 1 appl TP BID 05/23/17 [History] 3 Allergy/AdvReac Type Severity Reaction Status Date / Time No Known Allergies Allergy Verified 05/23/17 01:33 All Systems PM: A 10-system review of systems was performed and is negative for pertinent findings except as documented above in the HPI. Review of systems: All the systems are reviewed everything is benign except the systems and symptoms I mentioned in the history of present illness - Constitutional Vitals: Temp Pulse Resp BP Pulse Ox 98.1 F 78 18 162/81 95 05/23/17 06:57 05/23/17 06:57 05/23/17 08:11 05/23/17 06:57 05/23/17 08:11 General appearance: Present: mild distress (able to finish full sentence with out any pause), A&O X 3, answers questions appropriately - Head Head exam: Present: atraumatic, normal inspection - Respiratory Respiratory exam: Present: decreased breath sounds, respiratory distress (mild) , wheezes (moderate to severe). Absent: rales, rhonchi - Cardiovascular Cardiovascular exam: Present: RRR, +S1, +S2. Absent: systolic murmur - GI/Abdominal GI/Abdominal exam: Present: normal bowel sounds, soft, no peritoneal signs. Absent: distended, tenderness - Extremities Exam Extremities exam: Absent: calf tenderness, pedal edema, tenderness Additional comments: does have multiple flee bites / scratch roman - Neurological Exam Neurological exam: Present: alert, oriented X3 - Psychiatric Psychiatric exam: Present: normal affect, normal mood Internal Med - H&P Results - Labs CBC & Chem 7: 05/23/17 01:59 05/23/17 01:59
[2017-05-23] MEDS: Famotidine 20 MG TABLET PO SCH ×2 (10:35→21:36)
[2017-05-23] MEDS: Nicotine 21 MG PATCH.TD24 TD SCH (10:35)
[2017-05-23] MEDS: Levofloxacin 750 MG/150 ML 750 MG/150 ML BAG IVPB SCH (10:37)
[2017-05-23] MEDS: MethylPREDNISolone 40 MG/ML VIAL IVP SCH ×2 (12:12→17:06)
[2017-05-23] MEDS ORDERED: D5% in Water 1,000 ML IVC PRN (16:45)
[2017-05-23] MEDS ORDERED: *HR* Dextrose 50 % in Water (Syg) 50 ML SYRINGE IVP PRN (16:45)
[2017-05-23] MEDS ORDERED: Dextrose Gel 15 GM PO PRN ×2 (16:45)
[2017-05-23] MEDS: Insulin LISPRO 300 UNITS/3 ML VIAL SQ SCH ×2 (17:08→21:34)
[2017-05-23] MEDS: Beclomethasone 40mcg MDI IH SCH (20:28)
[2017-05-23] MEDS: traZODone 50 MG TABLET PO SCH (21:36)
[2017-05-23] MEDS: BuPROPion SR (12 HR) 150 MG TABLET PO SCH (21:36)
[2017-05-23] MEDS: Triamcinolone Acet 0.1% CRM 15 GM TUBE TP SCH (21:38)
[2017-05-24] MEDS: MethylPREDNISolone 40 MG/ML VIAL IVP SCH ×5 (00:37→23:57)
[2017-05-24 05:33] LABS: Basophils % 0.1 %; Hematocrit 48.6 % (35.3-44.9); Hemoglobin 15.7 g/dL (11.5-15.4); Immature Granulocytes % 0.9 % (0-4); Lymphocytes # 1.5 K/mcL (0.6-4.6); Lymphocytes % 8.6 %; Mean Corpuscular HGB Conc 32.3 g/dL (31.6-35.5); Mean Corpuscular Hemoglobin 27.9 pg (28.0-33.3); Mean Corpuscular Volume 86.3 fL (83.0-100.0); Mean Platelet Volume 11.1 fL (9.4-12.4); Monocytes # 0.4 K/mcL (0.0-1.3); Monocytes % 2.2 %; Neutrophils # 15.5 K/mcL (1.6-8.9); Platelet Count 292 K/mcL (140-400); Red Blood Count 5.63 M/mcL (3.82-4.97); Red Cell Distribution Width 13.4 % (11.5-14.5); Segmented Neutrophils % 88.2 %
[2017-05-24 05:45] LABS: Hemoglobin A1C 5.8 %
[2017-05-24] MEDS: Ipratropium/Albuterol Neb 3 ML IH PRN ×3 (05:47→21:34)
[2017-05-24 05:50] LABS: BUN/Creatinine Ratio 18 (6-26); Blood Urea Nitrogen 16 mg/dL (7-20); Calcium 10.2 mg/dL (8.6-10.8); Carbon Dioxide 24 mEq/L (19-29); Chloride 111 mEq/L (98-109); Glucose 152 mg/dL (70-99); Osmolality,Calculated 300 (280-300); Potassium 4.6 mEq/L (3.5-4.5); Sodium 143 mEq/L (136-145); eGFR For African Americans > 60 (> 60); eGFR For Non-African Americans > 60 (> 60)
[2017-05-24] MEDS: *HR* Enoxaparin 40 MG/0.4 ML SYRINGE SQ SCH (06:44)
[2017-05-24] MEDS: Beclomethasone 40mcg MDI IH SCH ×2 (07:46→21:32)
[2017-05-24] MEDS: Famotidine 20 MG TABLET PO SCH ×2 (07:48→21:05)
[2017-05-24] MEDS: BuPROPion SR (12 HR) 150 MG TABLET PO SCH ×2 (07:48→21:05)
[2017-05-24] MEDS: Nicotine 21 MG PATCH.TD24 TD SCH (07:48)
[2017-05-24] MEDS: Lisinopril 20 MG TABLET PO SCH (07:48)
[2017-05-24] MEDS: Insulin LISPRO 300 UNITS/3 ML VIAL SQ SCH ×4 (07:49→21:05)
[2017-05-24] MEDS: Levofloxacin 750 MG/150 ML 750 MG/150 ML BAG IVPB SCH (07:50)
[2017-05-24] MEDS: Triamcinolone Acet 0.1% CRM 15 GM TUBE TP SCH ×2 (07:53→21:06)
--- NOTE | 2017-05-24 13:04 | Internal Med Progress Note ---
Date of Encounter: 05/24/17 Time of Encounter: 11:45 - Assessment and plan (1) Asthma with acute exacerbation in adult Current Visit: Yes Status: Acute Assessment and plan: Continue current management with intravenous steroids and bronchodilators. Patient still having some shortness of breath and wheezing. We will continue current management for another day. Qualifiers: Qualified Code(s): J45.41 - Moderate persistent asthma with (acute) exacerbation (2) Bronchitis Current Visit: Yes Status: Acute Assessment and plan: On levofloxacin. Sputum cultures are negative. We will transition to oral regimen (3) Hypertension Current Visit: Yes Status: Chronic Assessment and plan: Blood pressure elevated. Patient is on lisinopril. We will add amlodipine Qualifiers: Hypertension type: essential hypertension Qualified Code(s): I10 - Essential (primary) hypertension (4) Hypothyroidism Current Visit: No Status: Chronic Assessment and plan: Continue levothyroxine Qualifiers: Hypothyroidism type: unspecified Qualified Code(s): E03.9 - Hypothyroidism , unspecified (5) Diabetes Current Visit: Yes Status: Chronic Assessment and plan: Monitor blood sugars. A1c is 5.8%. Qualifiers: Diabetes mellitus type: type 2 Diabetes mellitus complication status: without complication Diabetes mellitus ferry terminal agent insulin use: without fci use Qualified Code(s): E11.9 - Type 2 diabetes mellitus without complications (6) Tobacco abuse Current Visit: Yes Status: Chronic Assessment and plan: On nicotine patch - Subjective Interval history: Patient feels better compared to yesterday but still having shortness of breath with minimal exertion. Does have some cough. Minimal wheezing. Responding well to bronchodilators and nebulizers. - Constitutional Vitals: Temp Pulse Resp BP Pulse Ox 97.7 F 70 18 155/84 95 05/24/17 12:02 05/24/17 12:02 05/24/17 12:02 05/24/17 12:02 05/24/17 12:02 General appearance: Present: cooperative, mild distress, A&O X 3, answers questions appropriately - Respiratory Respiratory exam: Present: wheezes (Minimal). Absent: accessory muscle use, rales, rhonchi - GI/Abdominal GI/Abdominal exam: Present: normal bowel sounds, soft, no peritoneal signs. Absent: distended, tenderness - Extremities Exam Extremities exam: Present: warm, radial pulses palpable and symmetrical. Absent : calf tenderness, cyanotic, pedal edema - Neurological Exam Neurological exam: Present: CN II-XII intact, oriented X3, no focal deficits. Absent: facial droop, speech deficit - Skin Skin exam: Present: dry, intact Internal Medicine: Result - Labs CBC & Chem 7: 05/24/17 05:18 05/24/17 05:18 Labs: Short CBC 05/24/17 Range/Units 05:18 WBC 17.5 H (4.3-11.1) K/mcL Hgb 15.7 H (11.5-15.4) g/dL Hct 48.6 H (35.3-44.9) % Plt Count 292 (140-400) K/mcL Neutrophils # 15.5 H (1.6-8.9) K/mcL BMP 05/24/17 05:18 Sodium 143 Potassium 4.6 H Chloride 111 H Carbon Dioxide 24 BUN 16 Creatinine 0.88 Glucose 152 H Calcium 10.2 Consult Discharge Plan - Plan Referrals: Mick Langford MD [Primary Care Provider] -
[2017-05-24] MEDS: amLODIPine 5 MG TABLET PO SCH (13:32)
[2017-05-24] MEDS: Acetaminophen 325 MG TABLET PO PRN (16:04)
[2017-05-24] MEDS: traZODone 50 MG TABLET PO SCH (21:05)
[2017-05-25] MEDS: Acetaminophen 325 MG TABLET PO PRN ×2 (04:22→11:38)
[2017-05-25] MEDS: Saline Nasal Spray 44 ML BOTTLE NS PRN ×2 (04:55→08:37)
[2017-05-25] MEDS: MethylPREDNISolone 40 MG/ML VIAL IVP SCH ×2 (04:56→11:40)
[2017-05-25] MEDS: *HR* Enoxaparin 40 MG/0.4 ML SYRINGE SQ SCH (04:56)
[2017-05-25] MEDS: Beclomethasone 40mcg MDI IH SCH (08:08)
[2017-05-25] MEDS: Ipratropium/Albuterol Neb 3 ML IH PRN ×2 (08:10→11:26)
[2017-05-25] MEDS: amLODIPine 5 MG TABLET PO SCH (08:36)
[2017-05-25] MEDS: Insulin LISPRO 300 UNITS/3 ML VIAL SQ SCH ×2 (08:36→11:40)
[2017-05-25] MEDS: Famotidine 20 MG TABLET PO SCH (08:36)
[2017-05-25] MEDS: BuPROPion SR (12 HR) 150 MG TABLET PO SCH (08:36)
[2017-05-25] MEDS: Nicotine 21 MG PATCH.TD24 TD SCH (08:36)
[2017-05-25] MEDS: Lisinopril 20 MG TABLET PO SCH (08:36)
[2017-05-25] MEDS ORDERED: levoFLOXacin 500 MG TABLET PO SCH (09:00)
[2017-05-25] MEDS: Triamcinolone Acet 0.1% CRM 15 GM TUBE TP SCH (11:40)
--- NOTE | 2017-05-25 11:50 | Discharge Summary ---
Date of Encounter: 05/25/17 Time of Encounter: 10:40 - Discharge Diagnosis (1) Asthma with acute exacerbation in adult Priority: Primary Status: Acute Qualifiers: Asthma severity: moderate persistent Qualified Code(s): J45.41 - Moderate persistent asthma with (acute) exacerbation (2) Bronchitis Priority: Secondary Status: Acute (3) Hypertension Priority: Secondary Status: Chronic Qualifiers: Hypertension type: essential hypertension Qualified Code(s): I10 - Essential (primary) hypertension (4) Hypothyroidism Priority: Secondary Status: Chronic Qualifiers: Hypothyroidism type: unspecified Qualified Code(s): E03.9 - Hypothyroidism , unspecified (5) Diabetes Priority: Secondary Status: Chronic Qualifiers: Diabetes mellitus type: type 2 Diabetes mellitus complication status: without complication Diabetes mellitus fdc insulin use: without terminal make up operator use Qualified Code(s): E11.9 - Type 2 diabetes mellitus without complications (6) Tobacco abuse Priority: Secondary Status: Chronic (7) Lung nodule Priority: Secondary Status: Suspected - Discharge Medications Prescriptions: BuPROPion SR (12 HR) [Wellbutrin SR] 150 mg PO BID #30 tablet.er Citalopram [CeleXA] 20 mg PO DAILY #30 tablet levoFLOXacin [Levaquin] 500 mg PO DAILY #7 tablet predniSONE [PredniSONE] 10 mg PO DAILY 8 Days tablet traZODone [TraZODone] 50 mg PO HS #30 tablet Home Medications: Naproxen [Naprosyn] 500 mg PO BID PRN 07/14/16 [History] Albuterol Sulfate [Ventolin Hfa] 2 puff IH Q4H PRN 01/21/17 [History] Beclomethasone Diprop 40mcg [QVAR 40 mcg] 1 puff IH BID 05/23/17 [History] Levothyroxine Sodium 75 mcg PO DAILY 05/23/17 [History] Lisinopril [Zestril] 20 mg PO DAILY 05/23/17 [History] Triamcinolone Acetonide 1 appl TP BID 05/23/17 [History] BuPROPion SR (12 HR) [Wellbutrin SR] 150 mg PO BID #30 tablet.er 05/25/17 [Rx] Citalopram [CeleXA] 20 mg PO DAILY #30 tablet 05/25/17 [Rx] levoFLOXacin [Levaquin] 500 mg PO DAILY #7 tablet 05/25/17 [Rx] predniSONE [PredniSONE] 10 mg PO DAILY 8 Days tablet 05/25/17 [Rx] traZODone [TraZODone] 50 mg PO HS #30 tablet 05/25/17 [Rx] Allergies/Adverse Reactions: 3 Allergy/AdvReac Type Severity Reaction Status Date / Time No Known Allergies Allergy Verified 05/23/17 01:33 Date of admission: 05/23/17 08:30 Primary care physician: Mick Langford MD Discharging clinician: Rhonda Montoya Anticipated date of discharge: 05/25/17 - Patient Status Disposition: Home, Self-Care Condition: Good Functional capacity at discharge: independent ambulation Overall status at discharge: patient is progressing back to baseline - Ambulatory Orders Ambulatory Orders: CT chest wo con [CT] Time Frame: 1 Week, Facility: [facility] , Location: Radiology - Discharge Instructions Follow Up With: Mick Langford MD [Primary Care Provider] - (in 1 week) Additional Instructions: Please follow up with PCP within one week. Return to ER if you notice any worsening symptoms, shortness of breath, difficulty breathing or chest pain. - Diet and Activity Activity: increase activity as tolerated Diet: diabetic diet Hospital course: Ms. Reis is a 47 year old female patient with history of asthma hospitalized here with acute asthma exacerbation and bronchitis. She was treated with levofloxacin, IV steroids and bronchodilators. Her symptoms have slowly improved and today she is feeling much better and feels well enough to go home. She will be discharged home on a steroid taper and short course of antibiotics for her bronchitis. In the ER, initial chest x-ray in the ER showed a possible 1 cm nodular density at the left base adjacent to the anterior margin of the sixth rib. Recommend outpatient CT chest without contrast. This will be arranged for the patient after discharge. She will follow up further with her primary care provider. She was evaluated for home oxygen but did not qualify at this time. - Time Spent with Patient Total time spent providing and/or coordinating discharge services: Less than 30 minutes (25 min) - Constitutional Vitals: Temp Pulse Resp BP Pulse Ox 97.4 F L 73 20 157/79 97 05/25/17 10:48 05/25/17 10:48 05/25/17 11:27 05/25/17 10:48 09/24/17 11:27 General appearance: Present: cooperative, mild distress, A&O X 3, answers questions appropriately
[2017-05-25 15:10] VITALS: BP 154/83
--- NOTE | 2017-05-26 08:36 | Electrocardiograph Report ---
[place] [id number] Test Date: 2017-05-23 Pat Name: Vanna Reis Department: 104 Room: [facility] Gender: F Health And Safety Inspector: : 1970 Requested By: Jose Reyes Order Number: [id number] Reading MD: Quintin Edge DO Measurements Intervals [place] Rate: 94 P: 60 WV: 139 QRS: 69 QRSD: 81 T: 57 QT: 359 QTc: 410 Interpretive Statements SINUS RHYTHM Electronically Signed On 05-25-2017 10:05:47 EDT by Quintin Edge DO
== END 2017-05-25 16:09 | disposition home or self-care (01) | DRG 141 ==
LOC: 3NENU 01:27 → EMEROO 01:27 → 3NENU 04:14
PROVIDERS: ADMIT Internal Medicine; ATTEND Internal Medicine

== ENCOUNTER 2018-11-20 10:22 | Inpatient (IN) ==
[2018-11-20] MEDS ORDERED: methylPREDNISolone 125 MG/2 ML VIAL IVP ONE (10:52)
[2018-11-20] MEDS ORDERED: Ipratropium/Albuterol Neb 3 ML IH ONE (10:52)
--- NOTE | 2018-11-20 11:01 | Emergency Department Note ---
Disposition Clinical Impression: Difficulty breathing, Pulmonary nodules Pneumonia Qualifiers: Pneumonia type: due to unspecified organism Laterality: right Lung location: unspecified part of lung Qualified Code(s): J18.9 - Pneumonia, unspecified organism Disposition: Admitted As Inpatient Condition: Fair Time of Disposition: 14:31 General Adult HPI - General Chief complaint: ED Shortness of Breath/Dyspnea Stated complaint: difficulty breathing Time Seen by Provider: 11/20/18 10:29 Source: patient, EMS Limitations: no limitations - History of Present Illness HPI Narrative: Patient is a 48-year-old female presenting with shortness of breath. Patient has history of COPD. Patient states that she has had progressive shortness of breath for the past month, with productive cough, without fever or chills at home. Has been treated by her primary care provider with multiple antibiotics, states that she has taken a total of 3 different antibiotics within the past month as well as steroids without change in symptoms. She does not wear oxygen at home. She has been using her control her COPD medications as well as nebulizer treatments without change. No chest pain. She states that she does have pleuritic pain on the right lower side and her back. No new lower extremity swelling, change in weight, abdominal pain, nausea or vomiting. Pain Scale: 0 - Related Data Home Medications Medication Instructions Recorded Confirmed ARIPiprazole [Abilify] 2 mg PO DAILY 11/20/18 11/20/18 Albuterol Neb [Proventil Neb] 2.5 mg IH Q4HR 11/20/18 11/20/18 Albuterol Sulfate [Ventolin Hfa] 2 puff IH Q4-6H PRN 11/20/18 11/20/18 Beclomethasone Dip 40mcg REDIH 1 puff IH BID 11/20/18 11/20/18 [Qvar 40 Mcg Redihaler] Escitalopram [Lexapro] 10 mg PO DAILY 11/20/18 11/20/18 Levothyroxine Sodium 75 mcg PO DAILY 11/20/18 11/20/18 Lisinopril [Zestril] 20 mg PO DAILY 11/20/18 11/20/18 Allergies Allergy/AdvReac Type Severity Reaction Status Date / Time No Known Allergies Allergy Verified 11/20/18 15:57 Review of Systems: In addition to that documented in the HPI above, the additional ROS was obtained: General: Denies fever. Denies chills. Denies weight loss. Denies behavioral change. Eyes: Denies visual changes. ENT: Affirms nasal congestion. Denies sore throat. Denies hearing change. Cardio: Denies chest pain. Denies palpitations. Respiratory: Affirms cough. Affirms shortness of breath. GI: Denies nausea, Denies vomiting, or diarrhea. Denies hematochezia denies melena. Denies abdominal pain. : Denies dysuria, hematuria, or urinary retention MSK: Denies back pain. Denies joint swelling. Neuro: Denies slurred speech. Denies numbness or tingling. Denies focal weakness. Denies headache. Denies loss of consciousness. Psych: Denies mood changes. All systems ED: reviewed and negative except as stated. Review of Systems: As Per HPI Past Medical History - Past Medical History Attestation: Yes The following information was validated with the patient. Medical history: Reports: asthma, diabetes, hypertension, thyroid disease Surgical history: Reports: cholecystectomy, other Psychiatric history: Reports: no psych history - Social History Smoking Status: Current every day smoker Smokeless Tobacco Status: No Alcohol use: Reports: none Drug use: Reports: none Physical Exam General: Conversant. No apparent distress. Follow commands. Appears stated age. Neck: No JVD. Trachea midline. Neck supple. Eyes: PERRL. No scleral icterus. HENT: Normocephalic and atraumatic. Moist mucus membranes. Cardiovascular: Regular rate and rhythm. Normal S1 and S2. No murmurs appreciated. Normal capillary refill. Extremities well perfused with 2+ distal pulses bilaterally. No edema. Pulmonary: Patient is able to speak full sentences, she is on 2 L nasal cannula, satting at 97% in the room, decreased breath sounds throughout the right side, decreased breath sounds throughout the left, however there is good air movement, few expiratory wheezes, prolonged expiratory phase. Abdomen: Soft, nondistended, without tenderness. No bruits or masses. No guarding or rebound. Neuro: Alert and oriented x3. No slurred speech. No focal deficits noted. Skin: No rashes noted on visualized skin. Musculoskeletal: No bony abnormalities visualized. Moves all extremities. Psych: Normal mood. Pleasant. Makes appropriate eye contact. - General Limitations: no limitations General appearance: alert - Head Head exam: atraumatic, normocephalic, normal inspection Course Vital Signs Temperature 98.6 F 11/20/18 10:34 Pulse Rate 92 11/20/18 10:34 Respiratory Rate 26 11/20/18 10:34 Blood Pressure 135/76 11/20/18 10:34 O2 Sat by Pulse Oximetry 92 11/20/18 10:34 Temperature 98.6 F 11/20/18 10:34 Pulse Rate 94 11/20/18 12:26 Respiratory Rate 22 11/20/18 12:26 Blood Pressure 117/79 11/20/18 12:26 O2 Sat by Pulse Oximetry 95 11/20/18 12:26 Oxygen Delivery Oxygen Delivery Nasal Cannula Medical Decision Making - MDM Narrative Medical decision making narrative: Patient is a 48-year-old female presenting with shortness of breath. Known history of COPD, progressive dyspnea for the past month. She does not seem by primary care provider multiple times with multiple antibiotic regimens as well as prednisone. She states she has not had a chest x-ray for some time. She does not wear oxygen at home. On arrival, patient is alert and oriented 3, in no acute distress, she is on 2 L nasal cannula satting at 95%. She does have decreased breath sounds significantly on the right greater than the left, with prolonged expiration phase. Regular rate and rhythm. Chest x-ray on inital evaluation shows elevated right hemidiaphragm with decreased lung volumes with opacification throughout the right lung, with this concerning finding, CT a was performed which shows multiple new pulmonary nodules, concern for infectious versus inflammatory versus postobstructive pneumonia with complete opacification of the right upper lobe. With T11 concerning for metastatic lesion fracture. Patient was given a DuoNeb as well as steroids here in the ER. She is remained stable. Blood work shows leukocytosis, otherwise relatively unremarkable. Blood cultures have been obtained. Patient has been started on Rocephin as well as azithromycin. Discussed these findings with the patient, at this point in time she will be admitted for further evaluation and recommendations. Patient agreeable to disposition of admission at this point in time. - Medical Records Medical records reviewed: Yes I reviewed the patient's medical records. - Lab Data Lab results reviewed: Yes I reviewed the patient's lab results. Result diagrams: 11/20/18 11:01 11/20/18 11:01 Lab Results 11/20/18 11/20/18 11/20/18 Range/Units 11:01 11:01 11:01 WBC 20.0 H (4.3-11.1) K/mcL RBC 5.14 H (3.82-4.97) M/mcL Hgb 13.4 (11.5-15.4) g/dL Hct 42.2 (35.3-44.9) % MCV 82.1 L (83.0-100.0) fL MCH 26.1 L (28.0-33.3) pg MCHC 31.8 (31.6-35.5) g/dL RDW 15.9 H (11.5-14.5) % Plt Count 439 H (140-400) K/mcL MPV 10.5 (9.4-12.4) fL Immature Gran % 1.4 (0-4) % Seg Neutrophils % 73.9 % Lymphocytes % 14.4 % Monocytes % 9.5 % Eosinophils % 0.3 % Basophils % 0.5 % Neutrophils # 14.8 H (1.6-8.9) K/mcL Lymphocytes # 2.9 (0.6-4.6) K/mcL Monocytes # 1.9 H (0.0-1.3) K/mcL Eosinophils # 0.1 (0.0-0.6) K/mcL Basophils # 0.1 (0.0-0.2) K/mcL Sodium 137 (136-145) mEq/L Potassium 4.1 (3.5-5.1) mEq/L Chloride 102 (98-107) mEq/L Carbon Dioxide 26 (23-29) mEq/L BUN 17 (6-20) mg/dL Creatinine 0.69 (0.60-1.20) mg/dL Est GFR ( Amer) > 60 (> 60) Est GFR (Non-Af Amer) > 60 (> 60) BUN/Creatinine Ratio 25 (6-26) Glucose 161 H (70-105) mg/dL Calculated Osmolality 289 (280-300) Lactic Acid 1.7 (0.5-2.2) mmol/L Calcium 8.9 (8.6-10.3) mg/dL Troponin I < 0.03 (< 0.04) ng/mL B-Natriuretic Peptide (Less than 100) pg/mL 11/20/18 Range/Units 11:01 WBC (4.3-11.1) K/mcL RBC (3.82-4.97) M/mcL Hgb (11.5-15.4) g/dL Hct (35.3-44.9) % MCV (83.0-100.0) fL MCH (28.0-33.3) pg MCHC (31.6-35.5) g/dL RDW (11.5-14.5) % Plt Count (140-400) K/mcL MPV (9.4-12.4) fL Immature Gran % (0-4) % Seg Neutrophils % % Lymphocytes % % Monocytes % % Eosinophils % % Basophils % % Neutrophils # (1.6-8.9) K/mcL Lymphocytes # (0.6-4.6) K/mcL Monocytes # (0.0-1.3) K/mcL Eosinophils # (0.0-0.6) K/mcL Basophils # (0.0-0.2) K/mcL Sodium (136-145) mEq/L Potassium (3.5-5.1) mEq/L Chloride (98-107) mEq/L Carbon Dioxide (23-29) mEq/L BUN (6-20) mg/dL Creatinine (0.60-1.20) mg/dL Est GFR ( Amer) (> 60) Est GFR (Non-Af Amer) (> 60) BUN/Creatinine Ratio (6-26) Glucose (70-105) mg/dL Calculated Osmolality (280-300) Lactic Acid (0.5-2.2) mmol/L Calcium (8.6-10.3) mg/dL Troponin I (< 0.04) ng/mL B-Natriuretic Peptide 31 (Less than 100) pg/mL - Radiology Data Radiology results reviewed: Yes I reviewed the patient's radiology results. Chest X-Ray 11/20/18 10:39 IMPRESSION: 1. Elevation of the right hemidiaphragm with hazy appearance to the right hemithorax likely due to combination of pleural effusion and sub pulmonic effusion. CT scan chest would be helpful for further evaluation. D/ / Raul Chaves MD / Raul Chaves MD Interpreting Provider: Raul Chaves MD Chest CTA 11/20/18 11:17 IMPRESSION: 1. No evidence of a pulmonary embolism. 2. Large right pleural effusion with complete opacification of the right upper lobe with truncation of the right upper lobe bronchus. This could be related to an infectious/inflammatory process. Underlying malignancy with post obstructive pneumonia cannot be excluded. Endoscopy, tissue sampling, versus PET-CT may be of benefit for further evaluation. 3. There are multifocal new noncalcified pulmonary nodules, concerning for metastatic disease versus sequela of an infectious/inflammatory process. 4. Lytic lesion in the T11 superior endplate, concerning for metastatic disease. This could also represent a Schmorl's node. D/ / 11/20/2018 14:04:09 Pedro Oviedo MD / juan Interpreting Provider: Pedro Oviedo MD - EKG Data EKG #1 EKG attestation: Yes I reviewed and interpreted this EKG. EKG results narrative: EKG performed at 1040 with ventricular rate of 96, regular rhythm, normal axis, no ST segment elevation or depression. Overall normal sinus rhythm EKG S.B.A.R. - S.B.A.R. Situation: Demographics, MOA Background: Presenting Complaint, Relevant PMH, Meds, & Allergies Assessment: Vital Signs, Course and respsone to treatment, Exam Concerns, Patient/Family Expectation, Pertinant Lab Results, Outstanding Labs Recommendation: Barrier(s) to disposition, Recommendation based on pending studies, treatments, or consults S.B.A.R. Report Given to: Dr. Shultz S.B.A.RTiffanie Repor Time: 14:57 (accepted) Attestation Statement - Attestation Attestation: I, Jose Reyes, examined this patient and my medical decision-making was reviewed with the OVEN DAUBER/PA/Advanced Practice Nurse/Resident Physician. I agree with the documented findings, disposition and treatment plan as described except to the extent set forth below. 48-year-old female presents emergency Department with concerns of difficulty in breathing. Patient states symptoms have been occurring over the past month. She finished multiple courses of antibiotics by her primary care provider, she has also taken 2 courses of steroids without improvement of her symptoms. Patient does have a long history of tobacco abuse. Patient states she has sweats in the middle the night, early satiety. Chest x-ray showed possible pneumonia versus mass. CT of the chest did not show evidence of PE however it showed likely postobstructive inflammation and likely metastatic disease. I had a discussion with the patient regarding the results of the CT and she is comfortable with the plan for admission to the hospital for further care and evaluation.
[2018-11-20] MEDS ORDERED: Isovue-370 500 ML BOTTLE IVP ONE (11:17)
[2018-11-20 11:29] LABS: Basophils # 0.1 K/mcL (0.0-0.2); Basophils % 0.5 %; Eosinophils # 0.1 K/mcL (0.0-0.6); Eosinophils % 0.3 %; Hematocrit 42.2 % (35.3-44.9); Hemoglobin 13.4 g/dL (11.5-15.4); Immature Granulocytes % 1.4 % (0-4); Lymphocytes # 2.9 K/mcL (0.6-4.6); Lymphocytes % 14.4 %; Mean Corpuscular HGB Conc 31.8 g/dL (31.6-35.5); Mean Corpuscular Hemoglobin 26.1 pg (28.0-33.3); Mean Corpuscular Volume 82.1 fL (83.0-100.0); Mean Platelet Volume 10.5 fL (9.4-12.4); Monocytes # 1.9 K/mcL (0.0-1.3); Monocytes % 9.5 %; Neutrophils # 14.8 K/mcL (1.6-8.9); Platelet Count 439 K/mcL (140-400); Red Blood Count 5.14 M/mcL (3.82-4.97); Red Cell Distribution Width 15.9 % (11.5-14.5); Segmented Neutrophils % 73.9 %
[2018-11-20 11:40] LABS: BUN/Creatinine Ratio 25 (6-26); Blood Urea Nitrogen 17 mg/dL (6-20); Calcium 8.9 mg/dL (8.6-10.3); Carbon Dioxide 26 mEq/L (23-29); Chloride 102 mEq/L (98-107); Glucose 161 mg/dL (70-105); Osmolality,Calculated 289 (280-300); Potassium 4.1 mEq/L (3.5-5.1); Sodium 137 mEq/L (136-145); Troponin I < 0.03 ng/mL (< 0.04); eGFR For Non-African Americans > 60 (> 60)
[2018-11-20] MEDS ORDERED: Azithromycin 500 MG in D5% in Water 250 ML IVPB ONE (14:16)
[2018-11-20] MEDS ORDERED: Naloxone 0.4 MG/ML INJ IVP PRN (16:27)
[2018-11-20] MEDS ORDERED: Ondansetron 4 MG/2 ML VIAL IVP PRN (16:27)
[2018-11-20] MEDS ORDERED: Albuterol 2.5 MG/3 ML NEBULIZER IH PRN (16:31)
--- NOTE | 2018-11-20 16:46 | Internal Med History&Physical ---
Date of Encounter: 11/20/18 Time of Encounter: 16:44 Internal Medicine - H&P: HPI Chief complaint: SOB Admitted From: Emergency Dept Plans for Post Hospital Care: Home History of present illness: Ms. Reis is a 48 year old female past alcohol history of COPD non-oxygen dependent current smoker 1 pack a day patient states that she has been experiencing progressive dyspnea over the past month. Also a nonproductive cough and wheezing. She has seen her primary care provider multiple times has been on multiple antibiotic regimes as well as steroid without any improvement. She just completed antibiotics and steroids yesterday. She denies any chest pain. Patient states her shortness of breath has been so severe that she is unable to perform her home ADLs. She is not on any oxygens at home however she does use breathing treatments without any improvement. Patient states she has not been able to smoke because of her shortness of breath. Denies any fevers or chills nausea or vomiting diarrhea. ER records lab work did reveal leukocytosis with a white count 20 chest x-ray did show elevated right hematite diaphragm with decreased lung volume with opioids suffocation throughout the right lung. CT scan of chest which did show multiple new pulmonary nodules concerning for infectious versus inflammatory versus postobstructive pneumonia with complete opacification of the right upper lobe. With T 11 concerning for metastasis lesion fracture. Patient was requiring oxygen supplementation 2 L nasal cannula she was given bronchodilators as well as steroids IV. She has been admitted for further workup and evaluation. Currently patient does not appear to be an any respiratory distress and denies any chest pain this time Past Med Surg Social Fam HX - Past Medical History Medical history: asthma, diabetes, hypertension, thyroid disease Additional medical history: Endometriosis. DDD Psychiatric history: no psych history - Past Surgical History Surgical History: cholecystectomy, other Additional surgical history: Tonsilectomy. One filopian tube and ovary removed - Social History Smoking Status: Current every day smoker Smokeless Tobacco Status: No Alcohol use: none Drug use: none - Family History Mother Adopted: Yes Family Member Ethnicity: Non- Living Status: Still Living Hx Family Cardiac Disorders: Yes (hypertension) Hx Family Endocrine Disorder: Yes (diabetes) Father Adopted: No Family Member Ethnicity: Non- Living Status: Hx Family Cardiac Disorders: Yes (hypertension, heart disease unspecified) Hx Family Cancer: Yes (kidney) Hx Family Endocrine Disorder: Yes (diabetes) Internal Medicine - H&P: Meds ARIPiprazole [Abilify] 2 mg PO DAILY 11/20/18 [History] Albuterol Neb [Proventil Neb] 2.5 mg IH Q4HR 11/20/18 [History] Albuterol Sulfate [Ventolin Hfa] 2 puff IH Q4-6H PRN 11/20/18 [History] Beclomethasone Dip 40mcg REDIH [Qvar 40 Mcg Redihaler] 1 puff IH BID 11/20/18 [History] Escitalopram [Lexapro] 10 mg PO DAILY 11/20/18 [History] Levothyroxine Sodium 75 mcg PO DAILY 11/20/18 [History] Lisinopril [Zestril] 20 mg PO DAILY 11/20/18 [History] Allergy/AdvReac Type Severity Reaction Status Date / Time No Known Allergies Allergy Verified 11/20/18 15:57 All Systems PM: A 10-system review of systems was performed and is negative for pertinent findings except as documented above in the HPI. - Constitutional Constitutional: anorexia, night sweats, weakness, no chills, no fever(s) - EENT Eyes: no change in vision, no discharge, no pain, no photophobia Ears: no ear discharge, no ear pain, no tinnitus Nose, mouth and throat: no dysphagia, no nasal discharge, no neck pain, no sore throat - Cardiovascular Cardiovascular ROS IM: dyspnea, no chest pain, no diaphoresis, no lightheadedness, no palpitations, no syncope - Respiratory Respiratory: cough, dyspnea on exertion, wheezing - Gastrointestinal Gastrointestinal: no abdominal pain, no diarrhea, no hematemesis, no hematochezia, no melena, no nausea, no vomiting - Genitourinary Genitourinary: no change in urinary stream, no dysuria, no flank pain, no hematuria - Musculoskeletal Musculoskeletal ROS IM: no numbness, no tingling - Integumentary Integumentary IM: no rash, no unusual bruising - Neurological Neurological ROS: no confusion, no convulsions, no focal weakness, no numbness, no tingling, no tremor(s) - Hematologic/Lymphatic Hematologic/Lymphatic: no easy bruising - Constitutional Vitals: Temp Pulse Resp BP Pulse Ox 98.6 F 76 21 125/81 96 11/20/18 10:34 11/20/18 15:53 11/20/18 16:18 11/20/18 16:18 11/20/18 15:53 General appearance: Present: A&O X 3 Exam: . - Head Head exam: Present: atraumatic, normocephalic - Eye Eye exam: Present: PERRL, conjuntiva pink, sclera anicteric Pupils: Present: PERRL - Neck Neck exam general surgery: Present: supple, trachea midline. Absent: lymphadenopathy - Respiratory Respiratory exam: Present: decreased breath sounds, wheezes. Absent: accessory muscle use, rales, rhonchi - Cardiovascular Cardiovascular exam: Present: RRR, +S1, +S2. Absent: diastolic murmur, gallop, rubs, systolic murmur - GI/Abdominal GI/Abdominal exam: Present: normal bowel sounds, soft, no peritoneal signs. Absent: distended, tenderness - Extremities Exam Extremities exam: Present: warm, radial pulses palpable and symmetrical. Absent: calf tenderness, cyanotic, pedal edema - Neurological Exam Neurological exam: Present: CN II-XII intact, oriented X3, no focal deficits. Absent: pronater drift, facial droop, speech deficit - Skin Skin exam: Present: dry, intact Internal Med - H&P Results - Labs CBC & Chem 7: 11/20/18 11:01 11/20/18 11:01 Labs: Short CBC 11/20/18 Range/Units 11:01 WBC 20.0 H (4.3-11.1) K/mcL Hgb 13.4 (11.5-15.4) g/dL Hct 42.2 (35.3-44.9) % Plt Count 439 H (140-400) K/mcL Neutrophils # 14.8 H (1.6-8.9) K/mcL BMP 11/20/18 11:01 Sodium 137 Potassium 4.1 Chloride 102 Carbon Dioxide 26 BUN 17 Creatinine 0.69 Glucose 161 H Calcium 8.9 Cardiac Enzymes 11/20/18 Range/Units 11:01 Troponin I < 0.03 (< 0.04) ng/mL - Impressions ITS Impressions Chest X-Ray 11/20/18 10:39 IMPRESSION: 1. Elevation of the right hemidiaphragm with hazy appearance to the right hemithorax likely due to combination of pleural effusion and sub pulmonic effusion. CT scan chest would be helpful for further evaluation. D/ / Raul Chaves MD / Raul Chaves MD Interpreting Provider: Raul Chaves MD Chest CTA 11/20/18 11:17 IMPRESSION: 1. No evidence of a pulmonary embolism. 2. Large right pleural effusion with complete opacification of the right upper lobe with truncation of the right upper lobe bronchus. This could be related to an infectious/inflammatory process. Underlying malignancy with post obstructive pneumonia cannot be excluded. Endoscopy, tissue sampling, versus PET-CT may be of benefit for further evaluation. 3. There are multifocal new noncalcified pulmonary nodules, concerning for metastatic disease versus sequela of an infectious/inflammatory process. 4. Lytic lesion in the T11 superior endplate, concerning for metastatic disease. This could also represent a Schmorl's node. D/ / 11/20/2018 14:04:09 Pedro Oviedo MD / juan Interpreting Provider: Pedro Oviedo MD - Diagnostic Studies Chest x-ray Additional comments: Chest X-Ray 11/20/18 10:39 IMPRESSION: 1. Elevation of the right hemidiaphragm with hazy appearance to the right hemithorax likely due to combination of pleural effusion and sub pulmonic effusion. CT scan chest would be helpful for further evaluation. D/ / Raul Chaves MD / Raul Chaves MD Interpreting Provider: Raul Chaves MD Chest CTA 11/20/18 11:17 IMPRESSION: 1. No evidence of a pulmonary embolism. 2. Large right pleural effusion with complete opacification of the right upper lobe with truncation of the right upper lobe bronchus. This could be related to an infectious/inflammatory process. Underlying malignancy with post obstructive pneumonia cannot be excluded. Endoscopy, tissue sampling, versus PET-CT may be of benefit for further evaluation. 3. There are multifocal new noncalcified pulmonary nodules, concerning for metastatic disease versus sequela of an infectious/inflammatory process. 4. Lytic lesion in the T11 superior endplate, concerning for metastatic disease. This could also represent a Schmorl's node. D/ / 11/20/2018 14:04:09 Pedro Oviedo MD / juan Interpreting Provider: Pedro Oviedo MD - Assessment and Plan (1) Acute and chronic respiratory failure Current Visit: Yes Status: Acute Assessment and plan: Most likely secondary to postobstructive pneumonia and possible malignancy. Continue with oxygen supplementation titrating maintain SPO2 greater than 90% Patient will require a bronchoscopy-pulmonology has been consulted Qualifiers: Respiratory failure complication: hypoxia Qualified Code(s): J96.21 - Acute and chronic respiratory failure with hypoxia (2) Pneumonia Current Visit: Yes Status: Acute Assessment and plan: 1 patient has been experiencing shortness of breath for a month and has received antibiotic treatment as well as steroids on 3 occasions without any improvement. Underwent CT of chest was did show complete opacification of the right upper lobe which could be related to infectious/inflammatory process underlying malignancy with post obstructive pneumonia cannot be excluded- currently on oxygen at 2 L nasal cannula which we will continue Consult to pulmonology-patient will be nothing by mouth after midnight for possible bronchoscopy in a.m.-day team to notify Dr. Go in a.m. per Dr. Hyde requests Continue with bronchodilators Acapella treatment per respiratory Obtain sputum culture-blood cultures are pending Qualifiers: Pneumonia type: due to unspecified organism Laterality: right Lung location: unspecified part of lung Qualified Code(s): J18.9 - Pneumonia, unspecified organism (3) Pulmonary nodules Current Visit: Yes Status: Acute Assessment and plan: 1 CT of chest IMPRESSION: 1. No evidence of a pulmonary embolism. 2. Large right pleural effusion with complete opacification of the right upper lobe with truncation of the right upper lobe bronchus. This could be related to an infectious/inflammatory process. Underlying malignancy with post obstructive pneumonia cannot be excluded. Endoscopy, tissue sampling, versus PET-CT may be of benefit for further evaluation. 3. There are multifocal new noncalcified pulmonary nodules, concerning for metastatic disease versus sequela of an infectious/inflammatory process. 4. Lytic lesion in the T11 superior endplate, concerning for metastatic disease. This could also represent a Schmorl's node. Pulmonology has been consulted-may need consult oncology (4) DVT prophylaxis Current Visit: No Status: Acute Assessment and plan: Lovenox subcutaneous (5) Diabetes Current Visit: No Status: Chronic Assessment and plan: Accu-Cheks before meals at bedtime with sliding scale insulin will need to monitor closely due to steroid use Qualifiers: Diabetes mellitus type: type 2 Diabetes mellitus senior care insulin use: without middle or intermediate school principal use Diabetes mellitus complication status: without complication Qualified Code(s): E11.9 - Type 2 diabetes mellitus without complications (6) Hypertension Current Visit: No Status: Chronic Assessment and plan: Currently controlled continue home medications once verified Qualifiers: Hypertension type: essential hypertension Qualified Code(s): I10 - Essential (primary) hypertension (7) Hypothyroidism Current Visit: No Status: Chronic Assessment and plan: Continue with Synthroid once verified Qualifiers: Hypothyroidism type: unspecified Qualified Code(s): E03.9 - Hypothyroidism, unspecified (8) COPD (chronic obstructive pulmonary disease) Current Visit: Yes Status: Acute Assessment and plan: History of COPD non-oxygen dependent advised patient to stop smoking Continue with bronchodilators cont Singulair Qualifiers: COPD type: unspecified COPD Qualified Code(s): J44.9 - Chronic obstructive pulmonary disease, unspecified (9) Leukocytosis Current Visit: Yes Status: Acute Assessment and plan: White count 20,000 patient did finish a steroid course which could be driving white count up-we will continue to monitor closely monitor for signs and symptoms of infection Blood and sputum cultures are pending Does not appear to be septic at this time Qualifiers: Leukocytosis type: unspecified Qualified Code(s): D72.829 - Elevated white blood cell count, unspecified - Time Spent With Patient Total time spent is greater than 50% in coordination of care (as documented) at patient's floor/unit and/or counseling patient:
[2018-11-20] MEDS ORDERED: D5% in Water 1,000 ML IVC PRN (16:57)
[2018-11-20] MEDS ORDERED: *HR* Dextrose 50 % in Water (Syg) 50 ML SYRINGE IVP PRN (16:57)
[2018-11-20] MEDS ORDERED: Dextrose Gel 15 GM/37.5 ML TUBE PO PRN ×2 (16:57)
--- NOTE | 2018-11-20 16:58 | Electrocardiograph Report ---
[facility] Test Date: 2018-11-20 Pat Name: Vanna Reis Department: [id number] Room: 2A16 Gender: F Municipal Clerk: : [id number] Requested By: Jose Reyes Order Number: [id number] Reading MD: Cam Silverio Measurements Intervals [place] Rate: 96 P: 25 TN: 122 QRS: 86 QRSD: 79 T: 54 QT: 345 QTc: 436 Interpretive Statements Sinus rhythm wnl Electronically Signed On 11-20-2018 16:57:25 EDT by Cam Silverio
[2018-11-20] MEDS ORDERED: cefTRIAXone 1,000 MG in Water for inj. (sterile) 20 ML 10 ML IVP ONE (17:00)
[2018-11-20] MEDS: Ipratropium/Albuterol Neb 3 ML IH SCH ×2 (19:04→22:21)
[2018-11-20] MEDS: Insulin LISPRO 300 UNITS/3 ML VIAL SQ SCH (21:21)
[2018-11-20] MEDS: methylPREDNISolone 125 MG/2 ML VIAL IVP SCH (23:19)
[2018-11-21] MEDS: *HR* HYDROcodone/Acet 5/325 mg TABLET PO PRN ×4 (00:54→22:29)
[2018-11-21] MEDS: Ipratropium/Albuterol Neb 3 ML IH SCH ×4 (04:24→22:46)
[2018-11-21] MEDS: Acetaminophen 325 MG TABLET PO PRN (04:46)
[2018-11-21] MEDS: *HR* Enoxaparin 40 MG/0.4 ML SYRINGE SQ SCH (06:13)
[2018-11-21 07:44] LABS: Basophils % 0.1 %; Hematocrit 39.8 % (35.3-44.9); Hemoglobin 12.5 g/dL (11.5-15.4); Immature Granulocytes % 0.9 % (0-4); Lymphocytes % 4.7 %; Mean Corpuscular HGB Conc 31.4 g/dL (31.6-35.5); Mean Corpuscular Volume 82.9 fL (83.0-100.0); Mean Platelet Volume 10.5 fL (9.4-12.4); Monocytes # 0.7 K/mcL (0.0-1.3); Monocytes % 3.6 %; Neutrophils # 18.2 K/mcL (1.6-8.9); Platelet Count 386 K/mcL (140-400); Red Cell Distribution Width 15.5 % (11.5-14.5); Segmented Neutrophils % 90.7 %
[2018-11-21 08:01] LABS: BUN/Creatinine Ratio 29 (6-26); Blood Urea Nitrogen 18 mg/dL (6-20); Calcium 8.9 mg/dL (8.6-10.3); Carbon Dioxide 26 mEq/L (23-29); Chloride 101 mEq/L (98-107); Glucose 267 mg/dL (70-105); Magnesium 2.3 mg/dL (1.6-2.6); Osmolality,Calculated 289 (280-300); Potassium 4.7 mEq/L (3.5-5.1); Sodium 134 mEq/L (136-145); eGFR For Non-African Americans > 60 (> 60)
[2018-11-21 08:22] LABS: Prothrombin Time 11.5 Seconds (9.4-12.1)
[2018-11-21 08:23] LABS: Activated Partial Thrombo Time 29.7 Seconds (26.0-36.0)
[2018-11-21] MEDS: Insulin LISPRO 300 UNITS/3 ML VIAL SQ SCH ×4 (09:12→23:13)
[2018-11-21] MEDS: methylPREDNISolone 125 MG/2 ML VIAL IVP SCH ×2 (09:15→16:10)
[2018-11-21] MEDS: cefTRIAXone 1,000 MG in Water for inj. (sterile) 20 ML 10 ML IVP SCH (09:16)
[2018-11-21] MEDS: Lisinopril 20 MG TABLET PO SCH (09:16)
[2018-11-21] MEDS: ARIPiprazole 2 MG TABLET PO SCH (09:17)
--- NOTE | 2018-11-21 10:16 | Internal Med Progress Note ---
Hospitalist Progress Note - Encounter Date of Encounter: 11/21/18 Time of Encounter: 10:20 - Subjective Interval History: Patient seen and examined this morning at bedside. No acute overnight events. Still feeling short of breath No significant improvement. Has some chest pain in the right side of her chest. Denies any abdominal pain bowel or urinary complaints. - Exam Vitals: Temp Pulse Resp BP Pulse Ox 97.6 F 76 16 120/73 96 11/21/18 07:26 11/21/18 07:26 11/21/18 07:26 11/21/18 07:26 11/21/18 07:26 Exam: General: In mild respiratory distress. Obese Respiratory exam: bilateral wheezing. Rt air entry decreased at base. no accessory muscle use, rales, rhonchi, wheezes Cardiovascular exam: RRR, +S1, +S2. no murmur, gallop, rubs. GI/Abdominal exam: Non-tender, Non-distended, normal bowel sounds, soft, no peritoneal signs. Extremities exam: no pedal edema, warm, no calf tenderness Neurological exam: CN II-XII intact, AO X3, no focal deficits. Skin exam: No skin rash - Assessment and Plan (1) Hypertension Current Visit: No Status: Chronic (2) Hypothyroidism Current Visit: No Status: Chronic (3) Diabetes Current Visit: No Status: Chronic (4) DVT prophylaxis Current Visit: No Status: Acute (5) Pneumonia Current Visit: Yes Status: Acute (6) Pulmonary nodules Current Visit: Yes Status: Acute (7) Acute and chronic respiratory failure Current Visit: Yes Status: Acute (8) COPD (chronic obstructive pulmonary disease) Current Visit: Yes Status: Acute (9) Leukocytosis Current Visit: Yes Status: Acute - Summary of Assessment and Plan Summary of Assessment and Plan: Acute and chronic respiratory failure - likely secondary to postobstructive pneumonia and large pleural effusion. No PE. Lytic lesion in T11 concerning for metastatic disease. - c/w supplemental oxygen, ceftrixone, azithromycin - Pulmonology consulted for possible bronchoscopy and thorocentesis. Currenlty NPO Pneumonia - Possible post obstructive pneumonia. Unclear organism possibly bacterial. - has received antibiotic treatment as well as steroids on 3 occasions without any improvement over past month - CT with RUL opacification along with large pleural effusion. - c/w duonebs - f/u Blood and sputum cultures Diabetes - c/w accuchecks and SSI Hypertension - on home lisinopril. BP stable Hypothyroidism - c/w home levothyroxin COPD exacerbation - Not on oxygen - c/w duonebs, steroids and antibiotics. - quit smoking few weeks ago. Leukocytosis - could be related to steroid use recently - f/u Blood and urine cultures. Continue antibiotics for now. - Does not appear to be septic. - Time Spent with Patient Total time spent is greater than 50% in coordination of care (as documented) at patient's floor/unit and/or counseling patient: Internal Medicine: Result - Labs CBC & Chem 7: 11/21/18 07:07 11/21/18 07:07 Labs: Short CBC 11/20/18 11/21/18 Range/Units 11:01 07:07 WBC 20.0 H 20.0 H (4.3-11.1) K/mcL Hgb 13.4 12.5 (11.5-15.4) g/dL Hct 42.2 39.8 (35.3-44.9) % Plt Count 439 H 386 (140-400) K/mcL Neutrophils # 14.8 H 18.2 H (1.6-8.9) K/mcL BMP 11/20/18 11/21/18 11:01 07:07 Sodium 137 134 L Potassium 4.1 4.7 Chloride 102 101 Carbon Dioxide 26 26 BUN 17 18 Creatinine 0.69 0.63 Glucose 161 H 267 H Calcium 8.9 8.9 Cardiac Enzymes 11/20/18 Range/Units 11:01 Troponin I < 0.03 (< 0.04) ng/mL - ABG Interpretation ABG results: PT/INR, D-dimer PT 11.5 Seconds (9.4-12.1) 11/21/18 07:07 - Impressions Impressions Chest X-Ray 11/20/18 10:39 IMPRESSION: 1. Elevation of the right hemidiaphragm with hazy appearance to the right hemithorax likely due to combination of pleural effusion and sub pulmonic effusion. CT scan chest would be helpful for further evaluation. D/ / Raul Chaves MD / Raul Chaves MD Interpreting Provider: Raul Chaves MD Chest CTA 11/20/18 11:17 IMPRESSION: 1. No evidence of a pulmonary embolism. 2. Large right pleural effusion with complete opacification of the right upper lobe with truncation of the right upper lobe bronchus. This could be related to an infectious/inflammatory process. Underlying malignancy with post obstructive pneumonia cannot be excluded. Endoscopy, tissue sampling, versus PET-CT may be of benefit for further evaluation. 3. There are multifocal new noncalcified pulmonary nodules, concerning for metastatic disease versus sequela of an infectious/inflammatory process. 4. Lytic lesion in the T11 superior endplate, concerning for metastatic disease. This could also represent a Schmorl's node. D/ / 11/20/2018 14:04:09 Pedro Oviedo MD / juan Interpreting Provider: Pedro Oviedo MD Consult Discharge Plan - Plan Referrals: Mick Langford MD [Primary Care Provider] - (1) Hypertension Qualifiers: Hypertension type: essential hypertension Qualified Code(s): I10 - Essential (primary) hypertension (2) Hypothyroidism Qualifiers: Hypothyroidism type: unspecified Qualified Code(s): E03.9 - Hypothyroidism, unspecified (3) Diabetes Qualifiers: Diabetes mellitus type: type 2 Diabetes mellitus mcfp insulin use: without extermination supervisor use Diabetes mellitus complication status: without complication Qualified Code(s): E11.9 - Type 2 diabetes mellitus without complications (5) Pneumonia Qualifiers: Pneumonia type: due to unspecified organism Laterality: right Lung location: unspecified part of lung Qualified Code(s): J18.9 - Pneumonia, unspecified organism (7) Acute and chronic respiratory failure Qualifiers: Respiratory failure complication: hypoxia Qualified Code(s): J96.21 - Acute and chronic respiratory failure with hypoxia (8) COPD (chronic obstructive pulmonary disease) Qualifiers: COPD type: unspecified COPD Qualified Code(s): J44.9 - Chronic obstructive pulmonary disease, unspecified (9) Leukocytosis Qualifiers: Leukocytosis type: unspecified Qualified Code(s): D72.829 - Elevated white blood cell count, unspecified
--- NOTE | 2018-11-21 11:37 | Anesthesia Evaluation PreOp ---
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: Denies Any Significant HX Other Medical History: Diabetes Type II, Thyroid, Other (OBESITY, BMI 32) Anesthesia History: No Prior Anesthetic Complications, Past Anesthesia Alcohol Use: none Drug use: none Medications and Allergies ARIPiprazole [Abilify] 2 mg PO DAILY 11/20/18 [History] Albuterol Neb [Proventil Neb] 2.5 mg IH Q4HR 11/20/18 [History] Albuterol Sulfate [Ventolin Hfa] 2 puff IH Q4-6H PRN 11/20/18 [History] Beclomethasone Dip 40mcg REDIH [Qvar 40 Mcg Redihaler] 1 puff IH BID 11/20/18 [H istory] Escitalopram [Lexapro] 10 mg PO DAILY 11/20/18 [History] Levothyroxine Sodium 75 mcg PO DAILY 11/20/18 [History] Lisinopril [Zestril] 20 mg PO DAILY 11/20/18 [History] Allergy/AdvReac Type Severity Reaction Status Date / Time No Known Allergies Allergy Verified 11/20/18 15:57 - Meds/Allergy Pre-op Review Medications Reviewed: Yes Allergies Reviewed: Yes Anesthesia Results - Labs 11/21/18 07:07 11/21/18 07:07 - Imaging Additional studies: CTA CHEST 11/20: 1. No evidence of a pulmonary embolism. 2. Large right pleural effusion with complete opacification of the right upper lobe with truncation of the right upper lobe bronchus. This could be related to an infectious/inflammatory process. Underlying malignancy with post obstructive pneumonia cannot be excluded. Endoscopy, tissue sampling, versus PET-CT may be of benefit for further evaluation. 3. There are multifocal new noncalcified pulmonary nodules, concerning for metastatic disease versus sequela of an infectious/inflammatory process. 4. Lytic lesion in the T11 superior endplate, concerning for metastatic disease. This could also represent a Schmorl's node. Anesthesia Exam Vital Signs/O2 Sat/Glucose, Most Recent Temp Pulse Resp BP Pulse Ox 97.6 F 76 16 120/73 96 11/21/18 07:26 11/21/18 07:26 11/21/18 07:26 11/21/18 07:26 11/21/18 07:26 Blood Glucose* 238 Weight: 91 KG - BMI 32 NPO (# of Hours): >MN - HEENT Mallampati: III Teeth: Normal Oral Opening: Greater than 3 - Cardiac Rhythm: Regular - Pulmonary Breath Sounds: right Rales, right Rhonchi Respiratory Effort: Asymmetrical Anesthesia Assess/Plan ASA Score: 3 Anesthetic Plan: General Monitoring Plan: Standard Monitors Recovery Plan: PACU
--- NOTE | 2018-11-21 11:54 | Pulmonology Consult Note ---
Date of Encounter: 11/21/18 Time of Encounter: 10:00 Assessment and Plan (1) Acute respiratory failure with hypoxia Current Visit: Yes Status: Acute Patient positioning with this large right-sided pleural effusion with possible pneumonia also a right lung mass cannot be ruled out complicated by COPD exacerbation. (2) Pleural effusion exudative Current Visit: Yes Status: Acute Patient had a right-sided thoracentesis with no complication almost 1.2 L of pleural fluid was removed which was hazy straw-colored lights criteria with pleural LDH around 997 consistent with exudative pleural effusion. Pleural fluid microbiology is pending to cover with ceftriaxone and doxycycline for now (3) COPD with exacerbation Current Visit: Yes Status: Acute Continue bronchodilators and steroids. (4) Pneumonia Current Visit: Yes Status: Acute Has this lung mass postobstructive pneumonia cannot be ruled out will do bronchoscopy for endobronchial/transbronchial lung biopsies and . BAL. We will cover with ceftriaxone and doxycycline. Qualifiers: Pneumonia type: due to unspecified organism Laterality: right Lung location: unspecified part of lung Qualified Code(s): J18.9 - Pneumonia, unspecified organism (5) Mass of right lung Current Visit: Yes Status: Acute Patient has right upper lobe mass concerning for malignancy we will proceed with bronchoscopy with transbronchial/endobronchial biopsies. (6) Tobacco abuse counseling Current Visit: Yes Status: Acute Tobacco abuse counseling given.. History of Present Illness Consult date: 11/21/18 Requesting physician: Red Acuna Reason for consult: COPD, pneumonia, pleural effusion, lung mass Chief complaint: shortness of breadth and cough History of present illness: 48-year-old female with past medical history significant for chronic smoking had formally diagnosed COPD for the past one to 2 months patient has been diagnosed with recurrent COPD flareups and pneumonia has been given multiple antibiotics has been worsening shortness of breath on exertion with cough and with some sputum production mostly whitish in nature denies any yellow-green patient denies any hemoptysis patient denies any loss of weight and appetite patient was worked up in the ER with chest CT. The PE protocol which showed no evidence of pulmonary embolism a large right-sided pleural effusion and right upper lobe bronchus has been cut out most likely due to a lung mass. Pulmonary was consulted for further evaluation for bronchoscopy. Past Med Surg Social Fam HX - Past Medical History Medical history: asthma, diabetes, hypertension, thyroid disease Additional medical history: Endometriosis. DDD Psychiatric history: no psych history - Past Surgical History Surgical History: cholecystectomy, other Additional surgical history: Tonsilectomy. One filopian tube and ovary removed - Social History Smoking Status: Current every day smoker Smokeless Tobacco Status: No Alcohol use: none Drug use: none - Family History Mother Adopted: Yes Family Member Ethnicity: Non- Living Status: Still Living Hx Family Cardiac Disorders: Yes (hypertension) Hx Family Endocrine Disorder: Yes (diabetes) Father Adopted: No Family Member Ethnicity: Non- Living Status: Hx Family Cardiac Disorders: Yes (hypertension, heart disease unspecified) Hx Family Cancer: Yes (kidney) Hx Family Endocrine Disorder: Yes (diabetes) Medications and Allergies ARIPiprazole [Abilify] 2 mg PO DAILY 11/20/18 [History] Albuterol Neb [Proventil Neb] 2.5 mg IH Q4HR 11/20/18 [History] Albuterol Sulfate [Ventolin Hfa] 2 puff IH Q4-6H PRN 11/20/18 [History] Beclomethasone Dip 40mcg REDIH [Qvar 40 Mcg Redihaler] 1 puff IH BID 11/20/18 [History] Escitalopram [Lexapro] 10 mg PO DAILY 11/20/18 [History] Levothyroxine Sodium 75 mcg PO DAILY 11/20/18 [History] Lisinopril [Zestril] 20 mg PO DAILY 11/20/18 [History] Allergy/AdvReac Type Severity Reaction Status Date / Time No Known Allergies Allergy Verified 11/20/18 15:57 All Systems: The remainder of the systems were reviewed and are negative Physical Examination Vital Signs: Vital Signs, Last 4 Hours Temp Pulse Resp BP Pulse Ox 11/21/18 11:44 98.2 F 66 16 139/83 93 Results - Laboratory Findings CBC and BMP: 11/21/18 07:07 11/21/18 07:07 PT/INR, D-dimer PT 11.5 Seconds (9.4-12.1) 11/21/18 07:07 Abnormal lab findings: Abnormal lab results WBC 20.0 K/mcL (4.3-11.1) H 11/21/18 07:07 MCV 82.9 fL (83.0-100.0) L 11/21/18 07:07 MCH 26.0 pg (28.0-33.3) L 11/21/18 07:07 MCHC 31.4 g/dL (31.6-35.5) L 11/21/18 07:07 RDW 15.5 % (11.5-14.5) H 11/21/18 07:07 Neutrophils # 18.2 K/mcL (1.6-8.9) H 11/21/18 07:07 Sodium 134 mEq/L (136-145) L 11/21/18 07:07 BUN/Creatinine Ratio 29 (6-26) H 11/21/18 07:07 Glucose 267 mg/dL (70-105) H 11/21/18 07:07 POC Glucose 261 mg/dL (70-99) H 11/21/18 00:43 - Microbiology Findings Microbiology Findings: Microbiology, Last 48 Hours 11/20/18 15:40 Blood Culture - Preliminary Peripheral Venipuncture Culture is incubating and being continuously monitored for growth. Final report to follow. 11/20/18 15:35 Blood Culture - Preliminary Peripheral Venipuncture Culture is incubating and being continuously monitored for growth. Final report to follow. - Clinical Findings Intake & Output: Intake & Output 11/20/18 11/21/18 11/21/18 23:59 07:59 15:59 Intake Total 640 / 640 0 / 0 Balance 640 / 640 0 / 0 Consult Discharge Plan - Plan Referrals: Mick Langford MD [Primary Care Provider] -
--- NOTE | 2018-11-21 12:05 | Procedure Note ---
<Elin Mariscal M - Last Filed: 11/21/18 12:08> Date of procedure: 11/21/18 Pre-op diagnosis: large right pleural effusion Post-op diagnosis: same Procedure: Thoracentesis Date: 11/21/18 Time: 1130 Indication: Large pleural effusion Resident: Elin Mariscal DO Attending: Dr. Crooks A time-out was completed verifying correct patient, procedure, site, positioning, and special equipment. The patient was seated upright on the edge of the bed. The patients right side was prepped and draped in a sterile manner after the appropriate infiltration level was confirmed by ultrasound and marked with a skin marker. 1% lidocaine was used to anesthetize the surrounding skin. A finder needle was then used to locate fluid and clear yellow fluid was obtained. A 10-blade scalpel used to make a small, 1mm incision. The thoracentesis catheter was then threaded without difficulty and needle was removed. The patient had 1200mL of clear yellow fluid removed. Dr. Crooks was present for the entire procedure and assisted. A post-procedure chest x-ray was ordered and the fluid will be sent for several studies. Estimated Blood Loss: 0.5cc The patient tolerated the procedure well and there were no complications. Was there an corporate legal assistant present: Yes Twisting Operator: Rosa Crooks Estimated blood loss (cc): 0.5 Specimen: pleural fluid Condition: stable <Rosa Crooks - Last Filed: 11/21/18 12:40> Procedure: I was presented during the procedure assisted in critical portions of the procedure .
[2018-11-21] MEDS ORDERED: *HR* Propofol 200 MG/20 ML VIAL IVP ONE (12:12)
[2018-11-21] MEDS ORDERED: *HR* FentaNYL (PF) 100 MCG/2 ML VIAL ONE (12:12)
[2018-11-21] MEDS ORDERED: Lidocaine -MPF 4% 5 ML AMPUL ONE (12:17)
[2018-11-21] MEDS ORDERED: Lidocaine -MPF 2% 2 ML VIAL ONE (12:17)
[2018-11-21] MEDS ORDERED: Dexamethasone 4 MG/ML VIAL ONE (12:17)
[2018-11-21] MEDS ORDERED: Ondansetron 4 MG/2 ML VIAL ONE (12:17)
[2018-11-21] MEDS ORDERED: Propofol 500 MG/50 ML INFUS..BTL ONE (12:21)
[2018-11-21 12:39] LABS: Alanine Aminotransferase 12 Units/L (7-52); Alkaline Phosphatase 133 Units/L (34-104); Aspartate Amino Transferase 10 Units/L (13-39); Bilirubin,Direct 0.1 mg/dL (0.0-0.2); Bilirubin,Indirect 0.2 mg/dL (0.0-1.2); Bilirubin,Total 0.3 mg/dL (0.3-1.0); Globulin 3.1 g/dL (2.4-3.5); Lactate Dehydrogenase 193 Units/L (140-271); Total Protein 6.1 g/dL (6.4-8.9)
[2018-11-21] MEDS ORDERED: *HR* Succinylcholine 200 MG/10 ML VIAL IVP ONE (12:53)
[2018-11-21] MEDS ORDERED: Ondansetron 4 MG/2 ML VIAL IVP ONE (13:14)
[2018-11-21] MEDS ORDERED: Ipratropium/Albuterol Neb 3 ML IH ONE (13:14)
[2018-11-21] MEDS ORDERED: Racepinephrine Neb 0.5 ML VIAL IH ONE (13:14)
[2018-11-21] MEDS ORDERED: *HR* Promethazine 25 MG/ML VIAL IVP PRN (13:14)
[2018-11-21] MEDS ORDERED: *HR* PHENYLEPHRINE 1,000 MCG/10 ML SYRINGE IVP ONE (13:14)
[2018-11-21] MEDS ORDERED: *HR* FentaNYL (PF) 100 MCG/2 ML VIAL IVP PRN (13:14)
[2018-11-21] MEDS ORDERED: *HR* EPINEPHrine 1 MG/10 ML SYRINGE INTRATRACH PRN ×3 (13:29→13:42)
[2018-11-21] MEDS ORDERED: EPHEDrine 50 MG/ML VIAL ONE (13:42)
--- NOTE | 2018-11-21 15:10 | Anesthesia Evaluation Post Op ---
Date of Encounter: 11/21/18 Time of Encounter: 14:16 - Discharge PostOp Status: Transfer Patient to floor (Patient's vital signs have been reviewed. Patient is stable postoperatively and has adequately recovered from anesthesia. Patient is determined to have stable airway patency and respiratory function including respiratory rate and oxygen saturation. Patient has a stable heart rate, blood pressure and adequate hydration. Patients mental status is acceptable. Patients temperature is appropriate. Pain and nausea are adequately controlled.)
[2018-11-21] MEDS ORDERED: Azithromycin 250 MG TABLET PO SCH (16:00)
[2018-11-21 17:28] LABS: Appearance of Body Fluid Hazy (Clear)
[2018-11-21 17:29] LABS: Volume of Body Fluid 15 mL
[2018-11-21 17:35] LABS: Appearance of Body Fluid Cloudy (Clear); Volume of Body Fluid 10 mL
[2018-11-21] MEDS ORDERED: Doxycycline 100 MG in 0.9 % Sodium Chloride Mini Bag 100 ML IVPB SCH (19:00)
[2018-11-21] MEDS: Doxycycline 100 MG in 0.9 % Sodium Chloride Mini Bag 100 ML IVPB SCH (23:22)
[2018-11-22] MEDS: methylPREDNISolone 125 MG/2 ML VIAL IVP SCH ×2 (00:42→16:56)
[2018-11-22] MEDS: Ipratropium/Albuterol Neb 3 ML IH SCH ×4 (04:09→22:46)
[2018-11-22] MEDS: *HR* HYDROcodone/Acet 5/325 mg TABLET PO PRN ×3 (05:08→19:03)
[2018-11-22] MEDS: *HR* Enoxaparin 40 MG/0.4 ML SYRINGE SQ SCH (06:07)
[2018-11-22] MEDS ORDERED: Insulin DETEMIR 100 UNIT/ML X5UNITS SQ ONE (07:05)
[2018-11-22] MEDS: Lisinopril 20 MG TABLET PO SCH (07:49)
[2018-11-22] MEDS: ARIPiprazole 2 MG TABLET PO SCH (07:49)
[2018-11-22] MEDS: cefTRIAXone 1,000 MG in Water for inj. (sterile) 20 ML 10 ML IVP SCH (07:49)
[2018-11-22] MEDS: Insulin LISPRO 300 UNITS/3 ML VIAL SQ SCH ×4 (07:51→20:19)
[2018-11-22 08:09] LABS: BUN/Creatinine Ratio 32 (6-26); Blood Urea Nitrogen 23 mg/dL (6-20); Carbon Dioxide 26 mEq/L (23-29); Chloride 98 mEq/L (98-107); Glucose 330 mg/dL (70-105); Osmolality,Calculated 297 (280-300); Potassium 4.6 mEq/L (3.5-5.1); Sodium 135 mEq/L (136-145); eGFR For Non-African Americans > 60 (> 60)
[2018-11-22 08:22] LABS: Basophils % 0.2 %; Hematocrit 40.1 % (35.3-44.9); Hemoglobin 12.4 g/dL (11.5-15.4); Immature Granulocytes % 0.6 % (0-4); Lymphocytes % 2.3 %; Mean Corpuscular HGB Conc 30.9 g/dL (31.6-35.5); Mean Corpuscular Hemoglobin 26.3 pg (28.0-33.3); Mean Corpuscular Volume 85.1 fL (83.0-100.0); Mean Platelet Volume 11.3 fL (9.4-12.4); Monocytes % 3.6 %; Platelet Count 431 K/mcL (140-400); Red Blood Count 4.71 M/mcL (3.82-4.97); Red Cell Distribution Width 15.9 % (11.5-14.5); Segmented Neutrophils % 93.3 %
[2018-11-22 08:25] LABS: Basophils # 0.1 K/mcL (0.0-0.2); Lymphocytes # 0.5 K/mcL (0.6-4.6); Monocytes # 0.9 K/mcL (0.0-1.3)
[2018-11-22 08:26] LABS: Platelet Estimate Normal (Normal)
--- NOTE | 2018-11-22 08:50 | Internal Med Progress Note ---
Hospitalist Progress Note - Encounter Date of Encounter: 11/22/18 Time of Encounter: 08:47 - Subjective Interval History: Patient seen and examined this morning at bedside. No acute events. Breathing significantly improved. Had some night sweats. Afebrile. Denies any pain urinary or bowel complaints. - Exam Vitals: Temp Pulse Resp BP Pulse Ox 97.7 F 78 15 111/70 90 11/22/18 07:07 11/22/18 07:07 11/22/18 07:07 11/22/18 07:07 11/22/18 07:07 Exam: General: not in distress. Obese Respiratory exam: Improved air entry b/l. No wheezing or crackles. Cardiovascular exam: RRR, +S1, +S2. no murmur, gallop, rubs. GI/Abdominal exam: Non-tender, Non-distended, normal bowel sounds, soft, no peritoneal signs. Extremities exam: no pedal edema, warm, no calf tenderness Neurological exam: CN II-XII intact, AO X3, no focal deficits. Skin exam: No skin rash - Assessment and Plan (1) Hypertension Current Visit: No Status: Chronic (2) Hypothyroidism Current Visit: No Status: Chronic (3) Diabetes Current Visit: No Status: Chronic (4) DVT prophylaxis Current Visit: No Status: Acute (5) Pneumonia Current Visit: Yes Status: Acute (6) Pulmonary nodules Current Visit: Yes Status: Acute (7) Acute and chronic respiratory failure Current Visit: Yes Status: Acute (8) COPD (chronic obstructive pulmonary disease) Current Visit: Yes Status: Acute (9) Leukocytosis Current Visit: Yes Status: Acute (10) COPD with exacerbation Current Visit: Yes Status: Acute (11) Mass of right lung Current Visit: Yes Status: Acute (12) Pleural effusion exudative Current Visit: Yes Status: Acute (13) Depression Current Visit: No Status: Acute - Summary of Assessment and Plan Summary of Assessment and Plan: Acute on chronic respiratory failure - likely secondary to postobstructive pneumonia and large pleural effusion and COPD exacerbation. No PE. Lytic lesion in T11 concerning for metastatic disease. - s/p thorocentesis with exudative effusion and Bronchoscopy by Pulmonology. RUL, RML and RLL mass. Biopsy were taken. f/u body fluid cultures and cytology. Blood culture 11/20/18 NGTD. - c/w supplemental oxygen, ceftrixone, doxycycline. Pneumonia - Possible post obstructive pneumonia. Unclear organism possibly bacterial. - continue antibiotics as above - f/u Blood and sputum cultures and pleural fluid culture and cytology Rt Lung mass - s/p bronchoscopy. f/u biopsy COPD exacerbation - Not on home oxygen - c/w duonebs, steroids taper and antibiotics. - quit smoking few weeks ago. Diabetes - c/w accuchecks and SSI. Will give one dose of levemir 5untis Hypertension - on home lisinopril. BP stable Hypothyroidism - c/w home levothyroxin Depression c/w home lexapro and abilify DVT ppx - on lovenox. - Time Spent with Patient Total time spent is greater than 50% in coordination of care (as documented) at patient's floor/unit and/or counseling patient: Internal Medicine: Result - Labs CBC & Chem 7: 11/22/18 05:34 11/22/18 05:34 Labs: Short CBC 11/22/18 Range/Units 05:34 WBC 23.6 H (4.3-11.1) K/mcL Hgb 12.4 (11.5-15.4) g/dL Hct 40.1 (35.3-44.9) % Plt Count 431 H (140-400) K/mcL Neutrophils # 22.0 H (1.6-8.9) K/mcL BMP 11/21/18 11/22/18 07:07 05:34 Sodium 134 L 135 L Potassium 4.7 4.6 Chloride 101 98 Carbon Dioxide 26 26 BUN 18 23 H Creatinine 0.63 0.73 Glucose 267 H 330 H Calcium 8.9 9.0 Liver Function 11/21/18 Range/Units 07:07 Total Bilirubin 0.3 (0.3-1.0) mg/dL Direct Bilirubin 0.1 (0.0-0.2) mg/dL AST 10 L (13-39) Units/L ALT 12 (7-52) Units/L Alkaline Phosphatase 133 H (34-104) Units/L Albumin 3.0 L (3.5-5.7) g/dL - ABG Interpretation ABG results: PT/INR, D-dimer PT 11.5 Seconds (9.4-12.1) 11/21/18 07:07 - Impressions Impressions Chest X-Ray 11/21/18 00:00 IMPRESSION: No significant change in right-sided airspace disease disease. D/ / Thirery Bradford MD / Thierry Bradford MD Interpreting Provider: Thierry Bradford MD Chest X-Ray 11/21/18 11:55 IMPRESSION: No definite pneumothorax. D/ / 11/21/2018 12:41:24 Laci Purdy MD / juan Interpreting Provider: Laci Purdy MD Chest X-Ray 11/21/18 18:27 IMPRESSION: No pneumothorax. D/ / Imtiaz Montgomery MD / Imtiaz Montgomery MD Interpreting Provider: Imtiaz Montgomery MD Consult Discharge Plan - Plan Referrals: Mick Langford MD [Primary Care Provider] - (1) Hypertension Qualifiers: Hypertension type: essential hypertension Qualified Code(s): I10 - Essential (primary) hypertension (2) Hypothyroidism Qualifiers: Hypothyroidism type: unspecified Qualified Code(s): E03.9 - Hypothyroidism, unspecified (3) Diabetes Qualifiers: Diabetes mellitus type: type 2 Diabetes mellitus correction insulin use: without correction use Diabetes mellitus complication status: without complication Qualified Code(s): E11.9 - Type 2 diabetes mellitus without complications (5) Pneumonia Qualifiers: Pneumonia type: due to unspecified organism Laterality: right Lung location: unspecified part of lung Qualified Code(s): J18.9 - Pneumonia, unspecified organism (7) Acute and chronic respiratory failure Qualifiers: Respiratory failure complication: hypoxia Qualified Code(s): J96.21 - Acute and chronic respiratory failure with hypoxia (8) COPD (chronic obstructive pulmonary disease) Qualifiers: COPD type: unspecified COPD Qualified Code(s): J44.9 - Chronic obstructive pulmonary disease, unspecified (9) Leukocytosis Qualifiers: Leukocytosis type: unspecified Qualified Code(s): D72.829 - Elevated white blood cell count, unspecified (13) Depression Qualifiers: Depression Type: major depressive disorder Major depression recurrence: recurrent Active/Remission status: currently active Major depression episode severity: moderate Qualified Code(s): F33.1 - Major depressive disorder, recurrent, moderate
--- NOTE | 2018-11-22 10:39 | Pulmonology Progress Note ---
Date of Encounter: 11/22/18 Time of Encounter: 10:00 Assessment and Plan (1) Acute respiratory failure with hypoxia Current Visit: Yes Status: Acute Most likely due to COPD exacerbation and also right-sided pleural effusion. To continue liberate the oxygen supplementation as tolerated. (2) Pleural effusion exudative Current Visit: Yes Status: Acute Pleural fluid studies shows exudative Gram stain did not show any evidence of bacteria waiting for culture results. No evidence of empyema (3) COPD with exacerbation Current Visit: Yes Status: Acute Patient to continue bronchodilators and steroids. And antibiotics. (4) Pneumonia Current Visit: Yes Status: Acute To continue broad-spectrum antibiotics. Qualifiers: Pneumonia type: due to unspecified organism Laterality: right Lung location: unspecified part of lung Qualified Code(s): J18.9 - Pneumonia, unspecified organism (5) Mass of right lung Current Visit: Yes Status: Acute Right upper lobe mass and also affecting the right middle lobe patient had endobronchial/transbronchial biopsy waiting for cytology and pathology tomorrow morning I will call the cytopathologist to go over the slides. (6) Tobacco abuse counseling Current Visit: Yes Status: Acute Counseled about smoking cessation. Subjective Principal diagnosis: Acute respiratory failure Objective PUL Vital signs: Last Vital Signs Temp 98.4 F 11/22/18 10:15 Pulse 91 11/22/18 10:15 Resp 18 11/22/18 10:15 BP 110/64 11/22/18 10:15 Pulse Ox 91 11/22/18 10:15 Auscultation: bilateral: wheezes (minimal scattered wheezes ) other Results - Laboratory Findings CBC and BMP: 11/22/18 05:34 11/22/18 05:34 PT/INR, D-dimer PT 11.5 Seconds (9.4-12.1) 11/21/18 07:07 Abnormal lab findings: Abnormal lab results WBC 23.6 K/mcL (4.3-11.1) H 11/22/18 05:34 MCH 26.3 pg (28.0-33.3) L 11/22/18 05:34 MCHC 30.9 g/dL (31.6-35.5) L 11/22/18 05:34 RDW 15.9 % (11.5-14.5) H 11/22/18 05:34 Plt Count 431 K/mcL (140-400) H 11/22/18 05:34 Neutrophils # 22.0 K/mcL (1.6-8.9) H 11/22/18 05:34 Lymphocytes # 0.5 K/mcL (0.6-4.6) L 11/22/18 05:34 Sodium 135 mEq/L (136-145) L 11/22/18 05:34 BUN 23 mg/dL (6-20) H 11/22/18 05:34 BUN/Creatinine Ratio 32 (6-26) H 11/22/18 05:34 Glucose 330 mg/dL (70-105) H 11/22/18 05:34 POC Glucose 311 mg/dL (70-99) H 11/21/18 18:47 AST 10 Units/L (13-39) L 11/21/18 07:07 Alkaline Phosphatase 133 Units/L (34-104) H 11/21/18 07:07 Serum Total Protein 6.1 g/dL (6.4-8.9) L 11/21/18 07:07 Albumin 3.0 g/dL (3.5-5.7) L 11/21/18 07:07 Albumin/Globulin Ratio 1.0 (1.1-2.2) L 11/21/18 07:07 Fluid Appearance Cloudy (Clear) A 11/21/18 13:24 - Microbiology Findings Microbiology Findings: Microbiology, Last 48 Hours 11/21/18 13:24 Respiratory Culture - Preliminary Right Upper Lobe Lung Culture is incubating. 11/21/18 13:24 Respiratory Culture - Preliminary Right Middle Lobe Lung 11/21/18 11:45 Body Fluid Culture - Preliminary Pleural Fluid 11/20/18 15:40 Blood Culture - Preliminary Peripheral Venipuncture Culture is incubating and being continuously monitored for growth. Final report to follow. 11/20/18 15:35 Blood Culture - Preliminary Peripheral Venipuncture Culture is incubating and being continuously monitored for growth. Final report to follow. - Clinical Findings Intake & Output: Intake & Output 11/21/18 11/22/18 11/22/18 23:59 07:59 15:59 Intake Total 240 / 240 370 / 370 360 / 360 Output Total 200 / 200 Balance 40 / 40 370 / 370 360 / 360 Weight 91 kg Consult Discharge Plan - Plan Referrals: Mick Langford MD [Primary Care Provider] -
[2018-11-22] MEDS: Doxycycline 100 MG in 0.9 % Sodium Chloride Mini Bag 100 ML IVPB SCH ×2 (12:42→23:10)
[2018-11-23] MEDS: *HR* HYDROcodone/Acet 5/325 mg TABLET PO PRN ×4 (03:08→22:34)
[2018-11-23] MEDS: Ipratropium/Albuterol Neb 3 ML IH SCH ×4 (04:06→22:00)
[2018-11-23] MEDS: methylPREDNISolone 125 MG/2 ML VIAL IVP SCH (06:04)
[2018-11-23] MEDS: *HR* Enoxaparin 40 MG/0.4 ML SYRINGE SQ SCH (06:04)
[2018-11-23] MEDS: Insulin LISPRO 300 UNITS/3 ML VIAL SQ SCH ×4 (09:16→20:40)
[2018-11-23] MEDS: Lisinopril 20 MG TABLET PO SCH (09:16)
[2018-11-23] MEDS: ARIPiprazole 2 MG TABLET PO SCH (09:16)
[2018-11-23] MEDS: cefTRIAXone 1,000 MG in Water for inj. (sterile) 20 ML 10 ML IVP SCH (09:17)
--- NOTE | 2018-11-23 11:03 | Internal Med Progress Note ---
Hospitalist Progress Note - Encounter Date of Encounter: 11/23/18 Time of Encounter: 11:03 - Subjective Interval History: Patient seen and examined this morning at bedside. No acute overnight events. Breathing improved. Denies any fevers chills nausea vomiting chest pain abdominal pain urinary or bowel difficulties. - Exam Vitals: Temp Pulse Resp BP Pulse Ox 97.5 F L 66 18 149/84 96 11/23/18 10:24 11/23/18 10:24 11/23/18 10:24 11/23/18 10:24 11/23/18 10:24 Exam: General: not in distress. Obese Respiratory exam: Improved air entry b/l. mild wheezing or crackles bilaterally Cardiovascular exam: RRR, +S1, +S2. no murmur, gallop, rubs. GI/Abdominal exam: Non-tender, Non-distended, normal bowel sounds, soft, no peritoneal signs. Extremities exam: no pedal edema, warm, no calf tenderness Neurological exam: CN II-XII intact, AO X3, no focal deficits. Skin exam: No skin rash - Assessment and Plan (1) Hypertension Current Visit: No Status: Chronic (2) Hypothyroidism Current Visit: No Status: Chronic (3) Diabetes Current Visit: No Status: Chronic (4) DVT prophylaxis Current Visit: No Status: Acute (5) Pneumonia Current Visit: Yes Status: Acute (6) Pulmonary nodules Current Visit: Yes Status: Acute (7) Acute and chronic respiratory failure Current Visit: Yes Status: Acute (8) COPD (chronic obstructive pulmonary disease) Current Visit: Yes Status: Acute (9) Leukocytosis Current Visit: Yes Status: Acute (10) COPD with exacerbation Current Visit: Yes Status: Acute (11) Mass of right lung Current Visit: Yes Status: Acute (12) Pleural effusion exudative Current Visit: Yes Status: Acute (13) Depression Current Visit: No Status: Acute - Summary of Assessment and Plan Summary of Assessment and Plan: Acute on chronic respiratory failure - likely secondary to postobstructive pneumonia and large pleural effusion and COPD exacerbation. No PE. Lytic lesion in T11 concerning for metastatic disease. - s/p thorocentesis with exudative effusion and Bronchoscopy by Pulmonology. RUL, RML and RLL mass. Biopsy were taken. - f/u body fluid cultures and cytology. Blood culture 11/20/18 NGTD. Spoke with pathology labs, biopsy still pending preparation. May have prelimnary tomorrow. - c/w supplemental oxygen, ceftrixone, doxycycline. Pneumonia - Possible post obstructive pneumonia. Unclear organism possibly bacterial. - continue antibiotics as above - f/u Blood and sputum cultures and pleural fluid culture and cytology. NGTD Rt Lung mass - s/p bronchoscopy. f/u biopsy COPD exacerbation - Qualified for oxygen 2L - c/w duonebs, steroids taper and antibiotics. - quit smoking few weeks ago. Diabetes - c/w accuchecks and SSI. Will add levemir. Likely related to steroid use. Hypertension - on home lisinopril. BP stable Hypothyroidism - c/w home levothyroxin Depression c/w home lexapro and abilify DVT ppx - on lovenox. - Time Spent with Patient Total time spent is greater than 50% in coordination of care (as documented) at patient's floor/unit and/or counseling patient: Internal Medicine: Result - Labs CBC & Chem 7: 11/22/18 05:34 11/22/18 05:34 - ABG Interpretation ABG results: PT/INR, D-dimer PT 11.5 Seconds (9.4-12.1) 11/21/18 07:07 Consult Discharge Plan - Plan Referrals: Mick Langford MD [Primary Care Provider] - (1) Hypertension Qualifiers: Hypertension type: essential hypertension Qualified Code(s): I10 - Essential (primary) hypertension (2) Hypothyroidism Qualifiers: Hypothyroidism type: unspecified Qualified Code(s): E03.9 - Hypothyroidism, unspecified (3) Diabetes Qualifiers: Diabetes mellitus type: type 2 Diabetes mellitus 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 insulin use: without group home use Diabetes mellitus complication status: without complication Qualified Code(s): E11.9 - Type 2 diabetes mellitus without complications (5) Pneumonia Qualifiers: Pneumonia type: due to unspecified organism Laterality: right Lung location: unspecified part of lung Qualified Code(s): J18.9 - Pneumonia, unspecified organism (7) Acute and chronic respiratory failure Qualifiers: Respiratory failure complication: hypoxia Qualified Code(s): J96.21 - Acute and chronic respiratory failure with hypoxia (8) COPD (chronic obstructive pulmonary disease) Qualifiers: COPD type: unspecified COPD Qualified Code(s): J44.9 - Chronic obstructive pulmonary disease, unspecified (9) Leukocytosis Qualifiers: Leukocytosis type: unspecified Qualified Code(s): D72.829 - Elevated white blood cell count, unspecified (13) Depression Qualifiers: Depression Type: major depressive disorder Major depression recurrence: recurrent Active/Remission status: currently active Major depression episode severity: moderate Qualified Code(s): F33.1 - Major depressive disorder, recurrent, moderate
--- NOTE | 2018-11-23 11:28 | Pulmonology Progress Note ---
Date of Encounter: 11/23/18 Time of Encounter: 10:30 Assessment and Plan (1) Acute respiratory failure with hypoxia Current Visit: Yes Status: Acute Most likely due to COPD exacerbation and also right-sided pleural effusion. To continue liberate the oxygen supplementation as tolerated. (2) Pleural effusion exudative Current Visit: Yes Status: Acute Pleural fluid studies shows exudative Gram stain did not show any evidence of bacteria waiting for culture results. No evidence of empyema so far microbiology is negative cytology pending. (3) COPD with exacerbation Current Visit: Yes Status: Acute Patient to continue bronchodilators and steroids. To finish course of 7 days of antibiotics . Send her home on Albuterol nebulizer , Spiriva . I have scheduled the outpatient follow up on November 27 2018 11 AM (4) Pneumonia Current Visit: Yes Status: Acute To continue antibiotics for course of 7 days Qualifiers: Pneumonia type: due to unspecified organism Laterality: right Lung location: unspecified part of lung Qualified Code(s): J18.9 - Pneumonia, unspecified organism (5) Mass of right lung Current Visit: Yes Status: Acute Right upper lobe mass and also affecting the right middle lobe patient had endobronchial/transbronchial biopsy waiting for cytology and pathology tomorrow morning I will call the cytopathologist to go over the slides. 11/23 I called pathology will get some prelim results today or tomorrow (6) Tobacco abuse counseling Current Visit: Yes Status: Acute Counseled about smoking cessation. Subjective Principal diagnosis: Acute respiratory failure Interval history: Patient says her cough and shortness of breadth is at baseline . No hemoptysis Objective PUL Vital signs: Last Vital Signs Temp 97.5 F L 11/23/18 10:24 Pulse 66 11/23/18 10:24 Resp 18 11/23/18 10:24 BP 149/84 11/23/18 10:24 Pulse Ox 96 11/23/18 10:24 Auscultation: bilateral: wheezes (bilateral minimal scattered wheezes .) Results - Laboratory Findings CBC and BMP: 11/22/18 05:34 11/22/18 05:34 PT/INR, D-dimer PT 11.5 Seconds (9.4-12.1) 11/21/18 07:07 Abnormal lab findings: Abnormal lab results WBC 23.6 K/mcL (4.3-11.1) H 11/22/18 05:34 MCH 26.3 pg (28.0-33.3) L 11/22/18 05:34 MCHC 30.9 g/dL (31.6-35.5) L 11/22/18 05:34 RDW 15.9 % (11.5-14.5) H 11/22/18 05:34 Plt Count 431 K/mcL (140-400) H 11/22/18 05:34 Neutrophils # 22.0 K/mcL (1.6-8.9) H 11/22/18 05:34 Lymphocytes # 0.5 K/mcL (0.6-4.6) L 11/22/18 05:34 Sodium 135 mEq/L (136-145) L 11/22/18 05:34 BUN 23 mg/dL (6-20) H 11/22/18 05:34 BUN/Creatinine Ratio 32 (6-26) H 11/22/18 05:34 Glucose 330 mg/dL (70-105) H 11/22/18 05:34 POC Glucose 233 mg/dL (70-99) H 11/22/18 16:15 AST 10 Units/L (13-39) L 11/21/18 07:07 Alkaline Phosphatase 133 Units/L (34-104) H 11/21/18 07:07 Serum Total Protein 6.1 g/dL (6.4-8.9) L 11/21/18 07:07 Albumin 3.0 g/dL (3.5-5.7) L 11/21/18 07:07 Albumin/Globulin Ratio 1.0 (1.1-2.2) L 11/21/18 07:07 Fluid Appearance Cloudy (Clear) A 11/21/18 13:24 - Microbiology Findings Microbiology Findings: Microbiology, Last 48 Hours 11/21/18 13:24 Respiratory Culture - Preliminary Right Upper Lobe Lung 11/21/18 13:24 Respiratory Culture - Preliminary Right Middle Lobe Lung 11/21/18 11:45 Body Fluid Culture - Preliminary Pleural Fluid - Clinical Findings Intake & Output: Intake & Output 11/22/18 11/23/18 11/23/18 23:59 07:59 15:59 Intake Total 590 / 590 100 / 100 Balance 590 / 590 100 / 100 Weight 91 kg Consult Discharge Plan - Plan Referrals: Mick Langford MD [Primary Care Provider] -
[2018-11-23] MEDS: Doxycycline 100 MG in 0.9 % Sodium Chloride Mini Bag 100 ML IVPB SCH ×2 (12:31→22:34)
[2018-11-23] MEDS ORDERED: Insulin DETEMIR 100 UNIT/ML X5UNITS SQ ONE (14:01)
[2018-11-23] MEDS: Insulin DETEMIR 100 UNIT/ML X5UNITS SQ SCH (20:42)
[2018-11-24] MEDS: Acetaminophen 325 MG TABLET PO PRN ×2 (03:41→21:47)
[2018-11-24] MEDS: Ipratropium/Albuterol Neb 3 ML IH SCH ×4 (04:13→23:22)
[2018-11-24 05:58] LABS: Basophils # 0.1 K/mcL (0.0-0.2); Basophils % 0.3 %; Hematocrit 40.9 % (35.3-44.9); Hemoglobin 12.9 g/dL (11.5-15.4); Immature Granulocytes % 1.7 % (0-4); Lymphocytes # 2.4 K/mcL (0.6-4.6); Lymphocytes % 10.9 %; Mean Corpuscular HGB Conc 31.5 g/dL (31.6-35.5); Mean Corpuscular Hemoglobin 26.2 pg (28.0-33.3); Mean Platelet Volume 10.2 fL (9.4-12.4); Monocytes # 2.3 K/mcL (0.0-1.3); Monocytes % 10.6 %; Neutrophils # 16.5 K/mcL (1.6-8.9); Platelet Count 391 K/mcL (140-400); Red Blood Count 4.93 M/mcL (3.82-4.97); Red Cell Distribution Width 15.8 % (11.5-14.5); Segmented Neutrophils % 76.5 %
[2018-11-24] MEDS: *HR* Enoxaparin 40 MG/0.4 ML SYRINGE SQ SCH (06:02)
[2018-11-24 06:18] LABS: BUN/Creatinine Ratio 38 (6-26); Blood Urea Nitrogen 20 mg/dL (6-20); Calcium 9.1 mg/dL (8.6-10.3); Carbon Dioxide 29 mEq/L (23-29); Chloride 97 mEq/L (98-107); Glucose 157 mg/dL (70-105); Osmolality,Calculated 282 (280-300); Potassium 4.3 mEq/L (3.5-5.1); Sodium 133 mEq/L (136-145); eGFR For Non-African Americans > 60 (> 60)
[2018-11-24] MEDS: predniSONE 20 MG TABLET PO SCH (09:08)
[2018-11-24] MEDS: Lisinopril 20 MG TABLET PO SCH (09:08)
[2018-11-24] MEDS: *HR* HYDROcodone/Acet 5/325 mg TABLET PO PRN ×2 (09:08→16:49)
[2018-11-24] MEDS: cefTRIAXone 1,000 MG in Water for inj. (sterile) 20 ML 10 ML IVP SCH (09:09)
[2018-11-24] MEDS: ARIPiprazole 2 MG TABLET PO SCH (09:09)
[2018-11-24] MEDS: Insulin LISPRO 300 UNITS/3 ML VIAL SQ SCH ×4 (09:09→20:43)
--- NOTE | 2018-11-24 12:12 | Internal Med Progress Note ---
Hospitalist Progress Note - Encounter Date of Encounter: 11/24/18 Time of Encounter: 10:12 - Subjective Interval History: Patient seen and examined this morning. No acute overnight events. Denies new complains. Feeling well. Some soreness in Rt chest. Denies any shortness of breath. - Exam Vitals: Temp Pulse Resp BP Pulse Ox 97.9 F 63 16 175/99 98 11/24/18 11:05 11/24/18 11:05 11/24/18 11:05 11/24/18 11:05 11/24/18 11:05 Exam: General: not in distress. Obese Respiratory exam: Improved air entry b/l. mild wheezing or crackles bilaterally Cardiovascular exam: RRR, +S1, +S2. no murmur, gallop, rubs. GI/Abdominal exam: Non-tender, Non-distended, normal bowel sounds, soft, no peritoneal signs. Extremities exam: no pedal edema, warm, no calf tenderness Neurological exam: CN II-XII intact, AO X3, no focal deficits. Skin exam: No skin rash - Assessment and Plan (1) Hypertension Current Visit: No Status: Chronic (2) Hypothyroidism Current Visit: No Status: Chronic (3) Diabetes Current Visit: No Status: Chronic (4) DVT prophylaxis Current Visit: No Status: Acute (5) Pneumonia Current Visit: Yes Status: Acute (6) Pulmonary nodules Current Visit: Yes Status: Acute (7) Acute and chronic respiratory failure Current Visit: Yes Status: Acute (8) COPD (chronic obstructive pulmonary disease) Current Visit: Yes Status: Acute (9) Leukocytosis Current Visit: Yes Status: Acute (10) COPD with exacerbation Current Visit: Yes Status: Acute (11) Mass of right lung Current Visit: Yes Status: Acute (12) Pleural effusion exudative Current Visit: Yes Status: Acute (13) Depression Current Visit: No Status: Acute - Summary of Assessment and Plan Summary of Assessment and Plan: Acute on chronic respiratory failure - likely secondary to postobstructive pneumonia and large pleural effusion and COPD exacerbation. No PE. Lytic lesion in T11 concerning for metastatic disease. - s/p thorocentesis 1.2 L with exudative effusion and Bronchoscopy by Pulmonology. RUL, RML and RLL mass. Biopsy were taken. - symptomatically improved. body fluid cultures and cytology, Blood culture 11/20/18 NGTD. - Prelimnary pathology with Non-small cell to RUL biopsy. Will consult oncology. - c/w supplemental oxygen, ceftriaxone, doxycycline for 7 days Pneumonia - Possible post obstructive pneumonia. Unclear organism possibly bacterial. - continue antibiotics as above - f/u Blood and sputum cultures and pleural fluid culture and cytology. NGTD Rt Lung mass - s/p bronchoscopy. as above COPD exacerbation - Qualified for oxygen 2L - c/w duonebs, steroids taper and antibiotics. - quit smoking few weeks ago. Diabetes - c/w accuchecks and SSI, levemir. Likely related to steroid use. Hypertension - on home lisinopril. BP stable Hypothyroidism - c/w home levothyroxin Depression c/w home lexapro and abilify DVT ppx - on lovenox. - Time Spent with Patient Total time spent is greater than 50% in coordination of care (as documented) at patient's floor/unit and/or counseling patient: Internal Medicine: Result - Labs CBC & Chem 7: 11/24/18 05:36 11/24/18 05:36 Labs: Short CBC 11/24/18 Range/Units 05:36 WBC 21.6 H (4.3-11.1) K/mcL Hgb 12.9 (11.5-15.4) g/dL Hct 40.9 (35.3-44.9) % Plt Count 391 (140-400) K/mcL Neutrophils # 16.5 H (1.6-8.9) K/mcL BMP 11/24/18 05:36 Sodium 133 L Potassium 4.3 Chloride 97 L Carbon Dioxide 29 BUN 20 Creatinine 0.52 L Glucose 157 H Calcium 9.1 - ABG Interpretation ABG results: PT/INR, D-dimer PT 11.5 Seconds (9.4-12.1) 11/21/18 07:07 Consult Discharge Plan - Plan Referrals: Mick Langford MD [Primary Care Provider] - (1) Hypertension Qualifiers: Hypertension type: essential hypertension Qualified Code(s): I10 - Essential (primary) hypertension (2) Hypothyroidism Qualifiers: Hypothyroidism type: unspecified Qualified Code(s): E03.9 - Hypothyroidism, unspecified (3) Diabetes Qualifiers: Diabetes mellitus type: type 2 Diabetes mellitus 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 insulin use: without nursing home use Diabetes mellitus complication status: without complication Qualified Code(s): E11.9 - Type 2 diabetes mellitus without complications (5) Pneumonia Qualifiers: Pneumonia type: due to unspecified organism Laterality: right Lung location: unspecified part of lung Qualified Code(s): J18.9 - Pneumonia, unspecified organism (7) Acute and chronic respiratory failure Qualifiers: Respiratory failure complication: hypoxia Qualified Code(s): J96.21 - Acute and chronic respiratory failure with hypoxia (8) COPD (chronic obstructive pulmonary disease) Qualifiers: COPD type: unspecified COPD Qualified Code(s): J44.9 - Chronic obstructive pulmonary disease, unspecified (9) Leukocytosis Qualifiers: Leukocytosis type: unspecified Qualified Code(s): D72.829 - Elevated white blood cell count, unspecified (13) Depression Qualifiers: Depression Type: major depressive disorder Major depression recurrence: recurrent Active/Remission status: currently active Major depression episode severity: moderate Qualified Code(s): F33.1 - Major depressive disorder, recurrent, moderate
--- NOTE | 2018-11-24 12:37 | Pulmonology Progress Note ---
Date of Encounter: 11/24/18 Time of Encounter: 12:00 Assessment and Plan (1) Acute respiratory failure with hypoxia Current Visit: Yes Status: Acute Most likely due to COPD exacerbation and also right-sided pleural effusion. To continue liberate the oxygen supplementation as tolerated.. To send home on albuterol nebulizer and Spiriva. Follow-up on Friday to go over biopsy results. (2) Pleural effusion exudative Current Visit: Yes Status: Acute Pleural fluid studies shows exudative Gram stain did not show any evidence of bacteria waiting for culture results. No evidence of empyema so far microbiology is negative cytology pending. (3) COPD with exacerbation Current Visit: Yes Status: Acute Patient to continue bronchodilators and steroids. To finish course of 7 days of antibiotics . Send her home on Albuterol nebulizer , Spiriva . I have scheduled the outpatient follow up on November 27 2018 11 AM (4) Pneumonia Current Visit: Yes Status: Acute To continue antibiotics for course of 7 days Qualifiers: Pneumonia type: due to unspecified organism Laterality: right Lung location: unspecified part of lung Qualified Code(s): J18.9 - Pneumonia, unspecified organism (5) Mass of right lung Current Visit: Yes Status: Acute Right upper lobe mass and also affecting the right middle lobe patient had endobronchial/transbronchial biopsy waiting for cytology and pathology tomorrow morning I will call the cytopathologist to go over the slides. 11/23 I called pathology will get some prelim results today or tomorrow 11/24 got a call from pathologist prelim findings of right upper lobe transbronchial biopsy of the mass showed possible non-small cell lung carcinoma leading to his adenocarcinoma final pathology report to be followed. Consulted oncology. Patient will need outpatient PET CT scan and MRI brain and staging still pleural fluid cytology is pending I spoke with patient in presence of the nurse and the hospitalist. Will need outpatient evaluation by oncology (6) Tobacco abuse counseling Current Visit: Yes Status: Acute Counseled about smoking cessation. Subjective Principal diagnosis: Acute respiratory failure Interval history: Patient says her cough and shortness of breadth is at baseline . No hemoptysis Objective PUL Vital signs: Last Vital Signs Temp 97.9 F 11/24/18 11:05 Pulse 63 11/24/18 11:05 Resp 16 11/24/18 11:05 BP 175/99 11/24/18 11:05 Pulse Ox 98 11/24/18 11:05 Auscultation: bilateral: wheezes (Minimal) Gait: other anxious Results - Laboratory Findings CBC and BMP: 11/24/18 05:36 11/24/18 05:36 PT/INR, D-dimer PT 11.5 Seconds (9.4-12.1) 11/21/18 07:07 Abnormal lab findings: Abnormal lab results WBC 21.6 K/mcL (4.3-11.1) H 11/24/18 05:36 MCH 26.2 pg (28.0-33.3) L 11/24/18 05:36 MCHC 31.5 g/dL (31.6-35.5) L 11/24/18 05:36 RDW 15.8 % (11.5-14.5) H 11/24/18 05:36 Neutrophils # 16.5 K/mcL (1.6-8.9) H 11/24/18 05:36 Monocytes # 2.3 K/mcL (0.0-1.3) H 11/24/18 05:36 Sodium 133 mEq/L (136-145) L 11/24/18 05:36 Chloride 97 mEq/L (98-107) L 11/24/18 05:36 Creatinine 0.52 mg/dL (0.60-1.20) L 11/24/18 05:36 BUN/Creatinine Ratio 38 (6-26) H 11/24/18 05:36 Glucose 157 mg/dL (70-105) H 11/24/18 05:36 POC Glucose 142 mg/dL (70-99) H 11/24/18 11:08 AST 10 Units/L (13-39) L 11/21/18 07:07 Alkaline Phosphatase 133 Units/L (34-104) H 11/21/18 07:07 Serum Total Protein 6.1 g/dL (6.4-8.9) L 11/21/18 07:07 Albumin 3.0 g/dL (3.5-5.7) L 11/21/18 07:07 Albumin/Globulin Ratio 1.0 (1.1-2.2) L 11/21/18 07:07 Fluid Appearance Cloudy (Clear) A 11/21/18 13:24 - Microbiology Findings Microbiology Findings: Microbiology, Last 48 Hours 11/21/18 13:24 Respiratory Culture - Final Right Middle Lobe Lung 11/21/18 13:24 Respiratory Culture - Final Right Upper Lobe Lung 11/23/18 20:40 Sputum Culture - Final Sputum 11/21/18 13:24 Acid Fast Stain - Final Right Middle Lobe Lung 11/21/18 13:24 Acid Fast Stain - Final Right Upper Lobe Lung 11/21/18 11:45 Body Fluid Culture - Preliminary Pleural Fluid - Clinical Findings Intake & Output: Intake & Output 11/23/18 11/24/18 11/24/18 23:59 07:59 15:59 Intake Total 450 / 450 240 / 240 Balance 450 / 450 240 / 240 Weight 91 kg Consult Discharge Plan - Plan Referrals: Mick Langford MD [Primary Care Provider] -
[2018-11-24] MEDS: Doxycycline 100 MG in 0.9 % Sodium Chloride Mini Bag 100 ML IVPB SCH ×2 (13:07→22:31)
--- NOTE | 2018-11-24 17:29 | Oncology Inp Consult Note ---
<Vanna Andre Lisette - Last Filed: 11/25/18 17:55> Date of Encounter: 11/24/18 Time of Encounter: 17:30 Assessment and Plan (1) Primary cancer of right upper lobe of lung Status: Acute Assessment and plan: CTA reveals large right pleural effusion with complete opacification of the right upper lobe with truncation of the right upper lobe bronchus, multifocal new noncalcified pulmonary nodules, Lytic lesion in the T11 superior endplate, concerning for metastatic disease. This could also represent a Schmorl's node. Bronchoscopy Dr. Crooks 11/21/18-extrinsic compression of the right upper lobe bronchus causing a 90% stenosis. There is also a 80% middle lobe stenosis due to an endobronchial lesion. Right lower lobe as 20% stenosis. Pathology pending. Thoracentesis 11/21/18 with 1200mL of clear yellow fluid removed. Cytology pending. Plan: Discussed presentation consistent with metastatic lung cancer, likely non small cell lung cancer, with patient at bedside today For further staging we will plan to obtain PET/CT as outpatient She does endorse history of significant H/A daily over the past 4 weeks, no focal deficit or neurological complaint, we will obtain Brain MRI for staging and repot of headache Further treatment recommendations following final staging and pathology Will arrange for outpatient follow up with Dr. White - Data of Consult Patient: new to practice Consult date: 11/24/18 Requesting Physician: Red Acuna MD Primary Care Provider: Mick Langford MD - Consult Narrative Reason for consult: large right pleural effusion History of present illness: Ms. Reis is a 48 year old female with past medical history significant for COPD and tobacco abuse 1PPD that presented to [facility] with progressive SOB. She has been evaluated by PCP and prescribed prior ATB/Steroid regimens without any improvement in symptoms. CT scan 11/20/2018 revealed a large right pleural effusion with complete opacification of the right upper lobe with truncation of the right upper lobe bronchus. There are multifocal new noncalcified pulmonary nodules as well as a possible T11 endplate lesion concerning for metastasis. She underwent bronchoscopy today which revealed extrinsic compression of the right upper lobe bronchus causing a 90% stenosis. There is also a 80% middle lobe stenosis due to an endobronchial lesion. Right lower lobe as 20% stenosis. Pathology is pending. She endorses a history of severe left sided headache, poor appetite and weight loss. She lives with her mother of whom she helps to care for. She does not own a vehicle and is disabled. She has one sister, never and no children. She reports pain to her right chest that is worse with breathing. She denies fevers, chills, visual changes, focal weakness, SOB, chest pain, nausea, vomiting, bowel or bladder changes. Past Med Surg Social Fam HX - Past Medical History Medical history: asthma, diabetes, hypertension, thyroid disease Additional medical history: Endometriosis. DDD Psychiatric history: no psych history - Past Surgical History Surgical History: cholecystectomy, other Additional surgical history: Tonsilectomy. One filopian tube and ovary removed - Social History Smoking Status: Current every day smoker Smokeless Tobacco Status: No Alcohol use: none Drug use: none - Family History Father Adopted: No Family Member Ethnicity: Non- Living Status: Hx Family Cardiac Disorders: Yes (hypertension, heart disease unspecified) Hx Family Cancer: Yes (kidney) Hx Family Endocrine Disorder: Yes (diabetes) Mother Adopted: Yes Family Member Ethnicity: Non- Living Status: Still Living Hx Family Cardiac Disorders: Yes (hypertension) Hx Family Endocrine Disorder: Yes (diabetes) Medications and Allergies Albuterol Neb [Proventil Neb] 2.5 mg IH Q4HR 11/20/18 [History] Albuterol Sulfate [Ventolin Hfa] 2 puff IH Q4-6H PRN 11/20/18 [History] Escitalopram [Lexapro] 10 mg PO DAILY 11/20/18 [History] RX: ARIPiprazole [Abilify] 2 mg PO DAILY 11/20/18 [History] RX: Beclomethasone Dip 40mcg REDIH [Qvar 40 Mcg Redihaler] 1 puff IH BID 11/20/18 [History] RX: Levothyroxine Sodium 75 mcg PO DAILY 11/20/18 [History] RX: Lisinopril [Zestril] 20 mg PO DAILY 11/20/18 [History] Allergy/AdvReac Type Severity Reaction Status Date / Time No Known Allergies Allergy Verified 11/20/18 15:57 Constitutional: Present: anorexia, fatigue, night sweats, weakness, weight loss. Absent: chills, fever(s) Eyes: Absent: change in vision Nose, mouth and throat: Present: headache(s). Absent: dysphagia, odynophagia Cardiovascular: Absent: chest pain, palpitations Respiratory: Present: cough, dyspnea. Absent: hemoptysis Additional comments: right sided pleuritic pain Gastrointestinal: Present: as per HPI. Absent: abdominal pain, change in bowel habits, nausea, vomiting Genitourinary: Absent: dysuria Musculoskeletal: Present: muscle weakness Integumentary: Absent: rash Neurological: Present: headache(s). Absent: focal weakness, frequent falls, paresthesias, sensory deficit Psychiatric: Present: as per HPI Endocrine: Present: as per HPI Hematologic/Lymphatic: Present: as per HPI. Absent: lymphadenopathy Oncology - Exam - Constitutional General appearance: cooperative, no acute distress, no febrile - Head Head exam: Present: atraumatic - ENT ENT exam: Present: mucous membranes moist, normal oropharynx - Respiratory Respiratory exam: Present: decreased breath sounds, wheezes. Absent: respiratory distress - Cardiovascular Cardiovascular exam: Present: RRR, +S1, +S2 - GI/Abdominal GI/Abdominal exam: Present: normal bowel sounds, soft. Absent: tenderness - Extremities Exam Extremities exam: Present: normal inspection. Absent: calf tenderness - Neurological Exam Neurological exam: Present: alert, oriented X3, no focal deficits, strengths equal and symetr throughout - Psychiatric Psychiatric exam: Present: normal affect, normal mood - Skin Skin exam: Present: dry, intact, normal color, warm Consult Discharge Plan - Plan Referrals: Mick Langford MD [Primary Care Provider] - Inpatient Charges Provider: Dr. Elsy White <Jasper White - Last Filed: 11/25/18 22:06> Date of Encounter: 11/24/18 - Data of Consult Requesting Physician: Red Acuna MD Primary Care Provider: Mick Langford MD - Attending Attestation I have seen and examined Ms. Reis and agree with the assessment and plan put in place by Andre. This Chato is a very pleasant 48-year-old woman who presents with worsening shortness of breath. On exam, she has continued dyspnea which is evident. Right lung history OF breath sounds. Left lung is clear. Heart with regular rate and rhythm without murmur or gallop or rub. Neurologic exam is nonfocal. CT scan 11/20/2018 revealed a large right pleural effusion with complete opacification of the right upper lobe with truncation of the right upper lobe bronchus. There are multifocal new noncalcified pulmonary nodules as well as a possible T11 endplate lesion concerning for metastasis. She underwent bronchoscopy today which revealed extrinsic compression of the right upper lobe bronchus causing a 90% stenosis. There is also a 80% middle lobe stenosis due to an endobronchial lesion. Right lower lobe as 20% stenosis. BAL was negative for malignancy. Pathology is currently pending. By preliminary report, this may represent a non-small cell carcinoma. I would recommend consideration of thoracentesis to address patient shortness of breath. We have requested MRI imaging of the brain that she currently has a headache. PET/CT imaging will be arranged as an outpatient to complete staging. Inpatient Charges Provider: Dr. Elsy White Consult - Inpatient: [id number]
[2018-11-24] MEDS ORDERED: Gadolinium Contrast Agent (WT Based) IV PRN (18:32)
[2018-11-24 18:37] LABS: Fluid Source for Albumin PLEURAL FLUID
[2018-11-24] MEDS: Insulin DETEMIR 100 UNIT/ML X5UNITS SQ SCH (21:47)
[2018-11-25] MEDS: *HR* HYDROcodone/Acet 5/325 mg TABLET PO PRN ×3 (01:12→19:41)
[2018-11-25] MEDS: Ipratropium/Albuterol Neb 3 ML IH SCH ×4 (03:40→23:42)
[2018-11-25] MEDS: Acetaminophen 325 MG TABLET PO PRN (06:03)
[2018-11-25] MEDS: *HR* Enoxaparin 40 MG/0.4 ML SYRINGE SQ SCH (06:04)
[2018-11-25] MEDS ORDERED: *HR* OxyCODONE Immed Rel 5 MG TABLET PO ONE (06:29)
--- NOTE | 2018-11-25 06:38 | Event Note ---
Date of Encounter: 11/25/18 Time of Encounter: 05:59 Alerted by pts. nurse CLAUDIA Rojas that the pt. was complaining of right lung/chest pain and SOB. Pt. received 5 mg Corona at 01:12. Went to see pt. immediately who was resting in bed, wearing Oxymask, and clearly SOB. Pt. stated that the Corona did not help her pain much. Pts. nurse reported that pt. may DC today. Oncology notes recommend consideration of thoracentesis to address SOB. Pts. BP 153/76 at the time of examination. One time order of 10 mg oxycodone immediate release placed w/instructions to monitor pts. respiratory status closely. Pts. current SOB clearly needs addressed today prior to any DC plans. Nurse instructed to continue monitoring pt. closely and notify me immediately of any adverse changes.
[2018-11-25] MEDS: ARIPiprazole 2 MG TABLET PO SCH (08:46)
[2018-11-25] MEDS: predniSONE 20 MG TABLET PO SCH (08:46)
[2018-11-25] MEDS: Lisinopril 20 MG TABLET PO SCH (08:47)
[2018-11-25] MEDS: Insulin LISPRO 300 UNITS/3 ML VIAL SQ SCH ×4 (08:47→21:05)
[2018-11-25] MEDS: cefTRIAXone 1,000 MG in Water for inj. (sterile) 20 ML 10 ML IVP SCH (08:47)
--- NOTE | 2018-11-25 11:22 | Internal Med Progress Note ---
Hospitalist Progress Note - Encounter Date of Encounter: 11/25/18 Time of Encounter: 08:45 - Subjective Interval History: Overnight event noted, pt had worsening SOB with ongoing 3L O2 requirement. CXR this morning shows progressive near complete opacification of the R hemithorax, likely due to reaccumulation of pleural effusion. no fever/chills. - Exam Vitals: Temp Pulse Resp BP Pulse Ox 97.3 F L 72 20 153/76 91 11/25/18 06:27 11/25/18 06:27 11/25/18 06:27 11/25/18 06:11/25/18 06:27 Exam: General: mild distress but able to speak in full sentences Respiratory exam: Decreased air entry R>L Cardiovascular exam: RRR, +S1, +S2. no murmur GI/Abdominal exam: Non-tender, Non-distended, normal bowel sounds, soft, no peritoneal signs. Neurological exam: CN II-XII intact, AO X3, no focal deficits. Psych: Appropriate - Assessment and Plan (1) Acute and chronic respiratory failure Current Visit: Yes Status: Acute Assessment and Plan: Most likely secondary to postobstructive pneumonia and underlying malignancy a/w pleural effusion worsening symptoms overnight with CXR showing near complete opacification of the right hemithorax. s/p thorocentesis on 11/21 with 1.2 L with exudative effusion discussed with Pulmonary, Dr. Gonzalez not available this week for PleurX catheter insertion Discussed with thoracic surgery, for Pleurx catheter insertion tomorrow follow up on final pathology report c/w supplemental oxygen, ceftriaxone, doxycycline (D6) for 7 days (2) Pleural effusion exudative Current Visit: Yes Status: Acute Assessment and Plan: as above, recurrent and may benefit from PleurX catheter insertion (3) Mass of right lung Current Visit: Yes Status: Acute Assessment and Plan: prelim report is that of NSCLC Lytic lesion in T11 concerning for metastatic disease. for MRI brain oncology input appreciated (4) Pneumonia Current Visit: Yes Status: Acute Assessment and Plan: abx as above wean O2 as tolerated (5) COPD with exacerbation Current Visit: Yes Status: Acute Assessment and Plan: on PO steroid from yesterday (D6 total), will continue to taper continue bronchodilators and tx with abx as above (6) Hypertension Current Visit: No Status: Chronic Assessment and Plan: Continue home meds (7) Hypothyroidism Current Visit: No Status: Chronic Assessment and Plan: continue home meds (8) Diabetes Current Visit: No Status: Chronic Assessment and Plan: Continue basal bolus insulin (9) Depression Current Visit: Yes Status: Acute Assessment and Plan: continue home meds (10) DVT prophylaxis Current Visit: No Status: Acute Assessment and Plan: EPCD in anticipation for PleurX catheter tomorrow - Time Spent with Patient Total time spent is greater than 50% in coordination of care (as documented) at patient's floor/unit and/or counseling patient: Greater than 35 minutes Plan of Care Discussed with: patient (Discussed with pulmonary and thoracic surgery) Internal Medicine: Result - Labs CBC & Chem 7: 11/24/18 05:36 11/24/18 05:36 - ABG Interpretation ABG results: PT/INR, D-dimer PT 11.5 Seconds (9.4-12.1) 11/21/18 07:07 - Impressions Impressions Chest X-Ray 11/25/18 07:22 IMPRESSION: Progressive near complete opacification of the right hemithorax due to a combination of a large effusion and pulmonary consolidation/atelectasis. D/ / 11/25/2018 09:02:23 Meir Brito MD / kenroy Interpreting Provider: Meir Brito MD Consult Discharge Plan - Plan Referrals: Mick Langford MD [Primary Care Provider] - ____ (1) Acute and chronic respiratory failure Qualifiers: Respiratory failure complication: hypoxia Qualified Code(s): J96.21 - Acute and chronic respiratory failure with hypoxia (4) Pneumonia Qualifiers: Pneumonia type: due to unspecified organism Laterality: right Lung location: unspecified part of lung Qualified Code(s): J18.9 - Pneumonia, unspecified organism (6) Hypertension Qualifiers: Hypertension type: essential hypertension Qualified Code(s): I10 - Essential (primary) hypertension (7) Hypothyroidism Qualifiers: Hypothyroidism type: unspecified Qualified Code(s): E03.9 - Hypothyroidism, unspecified (8) Diabetes Qualifiers: Diabetes mellitus type: type 2 Diabetes mellitus prison insulin use: without prison use Diabetes mellitus complication status: without complication Qualified Code(s): E11.9 - Type 2 diabetes mellitus without complications (9) Depression Qualifiers: Depression Type: major depressive disorder Major depression recurrence: recurrent Active/Remission status: currently active Major depression episode severity: moderate Qualified Code(s): F33.1 - Major depressive disorder, recurrent, moderate
[2018-11-25] MEDS: Doxycycline 100 MG in 0.9 % Sodium Chloride Mini Bag 100 ML IVPB SCH ×2 (11:31→23:36)
--- NOTE | 2018-11-25 11:53 | Cardiothoracic Consult Note ---
Date of Encounter: 11/25/18 Time of Encounter: 11:51 Assessment and Plan (1) Primary cancer of right upper lobe of lung Current Visit: Yes Status: Acute The assessment and plan as outlined above was discussed with the patient and/or family members who expressed understanding and agreement. All questions were answered. biopsy results are pending. i have offerd gucci a right pleurx catheter insertion. placed orders and scheduled surgery for tomorrow. will follow up on mri of the brain (2) Malignant pleural effusion Current Visit: Yes Status: Acute The assessment and plan as outlined above was discussed with the patient and/or family members who expressed understanding and agreement. All questions were answered. (3) Essential hypertension Current Visit: No Status: Chronic The assessment and plan as outlined above was discussed with the patient and/or family members who expressed understanding and agreement. All questions were answered. currently well controlled on home medications. (4) Mild protein-energy malnutrition Current Visit: Yes Status: Acute The assessment and plan as outlined above was discussed with the patient and/or family members who expressed understanding and agreement. All questions were answered. this is probably multifactorial: lung cancer, SOB and GOODE while trying to eat. start therapy once cell type known. may need megace or marinol. - History of Present Illness Consult date: 11/25/18 Requesting physician: Mohinder Miller Consult reason: malignant effusion Chief complaint: sob History of present illness: Ms. Reis is a 48 year old female who presented to [facility] with approximately 1 month history of cough, intermittent hemoptysis and SOB not relieved with multiple course of antibiotics and steroids. On admission, a ct scan of the chest demonstrated obstruction of the right upper lobe orifice at its origin and a moderately large right pleural effusion. Thoracentesis slightly improved Gucci's SOB and cough but the effusion has reoccurred after 4 days. Past Med Surg Social Fam HX - Past Medical History Medical history: asthma, diabetes, hypertension, thyroid disease Additional medical history: Endometriosis. DDD Psychiatric history: no psych history - Past Surgical History Surgical History: cholecystectomy, other Additional surgical history: Tonsilectomy. One filopian tube and ovary removed - Social History Smoking Status: Current every day smoker Smokeless Tobacco Status: No Alcohol use: none Drug use: none - Family History Mother Adopted: Yes Family Member Ethnicity: Non- Living Status: Still Living Hx Family Cardiac Disorders: Yes (hypertension) Hx Family Endocrine Disorder: Yes (diabetes) Father Adopted: No Family Member Ethnicity: Non- Living Status: Hx Family Cardiac Disorders: Yes (hypertension, heart disease unspecified) Hx Family Cancer: Yes (kidney) Hx Family Endocrine Disorder: Yes (diabetes) Medications and Allergies ARIPiprazole [Abilify] 2 mg PO DAILY 11/20/18 [History] Albuterol Neb [Proventil Neb] 2.5 mg IH Q4HR 11/20/18 [History] Albuterol Sulfate [Ventolin Hfa] 2 puff IH Q4-6H PRN 11/20/18 [History] Beclomethasone Dip 40mcg REDIH [Qvar 40 Mcg Redihaler] 1 puff IH BID 11/20/18 [History] Escitalopram [Lexapro] 10 mg PO DAILY 11/20/18 [History] Levothyroxine Sodium 75 mcg PO DAILY 11/20/18 [History] Lisinopril [Zestril] 20 mg PO DAILY 11/20/18 [History] Allergy/AdvReac Type Severity Reaction Status Date / Time No Known Allergies Allergy Verified 11/20/18 15:57 All Systems Review: The remainder of the systems were reviewed and are negative - Constitutional Constitutional: fatigue, headache(s), lethargy, weakness, weight loss - EENT Nose, mouth and throat: epistaxis - Cardiovascular Cardiovascular: dyspnea at rest, dyspnea on exertion - Respiratory Respiratory: cough, dyspnea, hemoptysis, wheezing - Gastrointestinal Gastrointestinal: nausea - Neurological Neurological: abnormal speech (her speech has been abnormal for years ) - Psychiatric Psychiatric: anxiety Physical Examination Vital Signs, Last 4 Hours Temp Pulse Resp BP 11/25/18 11:27 97.6 F 93 18 120/72 General: Conversant, No Apparent Distress, Well developed, Well nourished, Other (obese) HEENT: Atraumatic, Normocephaly, Trachea midline, Other (currently with epistaxis. ) Neck: No JVD, Other (no thyroid masses or cervicle or supraclavicular adenopthy appreciated ) Cardiac: Reg Rate and Rhythm, Normal S1 and S2 Lungs: Other (cta on the left but significantly decreased throughout the right. ) Neuro: Alert and responsive, No focal deficits noted, Cranial nerves intact, Motor nerves intact Vascular: Normal capillary refill Abdomen: Soft, Non-tender Extremities: No Clubbing, No Cyanosis, No Edema, Normal Pulses Results 11/24/18 05:36 11/24/18 05:36 - Imaging Chest Xray: report reviewed, image reviewed Consult Discharge Plan - Plan Referrals: Mick Langford MD [Primary Care Provider] -
--- NOTE | 2018-11-25 17:36 | Oncology Inp Progress Note ---
<Vanna Andre L - Last Filed: 11/25/18 18:18> Date of Encounter: 11/25/18 Time of Encounter: 13:00 (1) Cancer associated pain Current Visit: Yes Status: Acute Assessment and plan: Patient reports pleuritic pain to right chest that is poorly uncontrolled on 1 tab Scroggins every 8 hours as needed Plan: Increase norco to 1-2 tabs every 6 hours PRN Start MS Contin 15 mg every 12 hours Start colace PRN Patient has terminal diagnosis and will be considered exempt from OAC 3731 (2) DVT prophylaxis Current Visit: No Status: Acute Assessment and plan: Lovenox on hold in preparation for upcoming pleurx cath placement SCD's (3) Malignant pleural effusion Current Visit: Yes Status: Acute Assessment and plan: Thoracentesis 11/21/18 with 1200mL of clear yellow fluid removed. Cytology reveals metastatic adenocarcinoma. cytokeratin 7 and TTF-1 positive, negative for Napsin-A Patient experienced worsening shortness of breath and hypoxia overnight. Repeat chest x-ray this morning revealed rapid accumulation of right pleural effusion. Plan Cardiothoracic surgery was consulted and planning for Pleurx catheter placement in a.m. (4) Pneumonia Current Visit: Yes Status: Acute Assessment and plan: Likely postobstructive ceftriaxone, doxycycline (D6) for 7 days Management per hospitalist team. Qualifiers: Pneumonia type: due to unspecified organism Laterality: right Lung l ocation: unspecified part of lung Qualified Code(s): J18.9 - Pneumonia, unspecified organism (5) Adenocarcinoma of lung Current Visit: Yes Status: Acute Assessment and plan: CTA reveals large right pleural effusion with complete opacification of the right upper lobe with truncation of the right upper lobe bronchus, multifocal new noncalcified pulmonary nodules, Lytic lesion in the T11 superior endplate, concerning for metastatic disease. This could also represent a Schmorl's node. Bronchoscopy Dr. Crooks 11/21/18-extrinsic compression of the right upper lobe bronchus causing a 90% stenosis. There is also a 80% middle lobe stenosis due to an endobronchial lesion. Right lower lobe as 20% stenosis. Endobronchial biopsy of the right upper lobe pathology reveals poorly- differentiated non-small cell lung carcinoma. Thoracentesis 11/21/18 with 1200mL of clear yellow fluid removed. Cytology positive for metastatic adenocarcinoma. MRI brain today reveals marrow replacement and enhancement within the clivus suspicious for osseous metastatic disease as well as dural thickening and enhancement overlying the left frontal lobe raising the possibility for dural metastasis. Plan: Discussed pleural metastasis and MRI results with patient at bedside, introduced the idea of initially starting with palliative radiotherapy to brain as well as chest, followed by systemic treatment. Ms. Reis is understandably having a difficult time processing the idea of her advanced cancer and palliative intent of treatment. Encouraged her to entertain the idea of palliative radiotherapy to at least aid in her symptom control, as she continues to symptomatically improve we will continue to discuss treatment options. Patient has agreed to visit from our law instructor services but would like to wait until tomorrow. Plan to send tissue for next generation sequencing to assess for targetable mutation Given her report of significant H/A on daily basis for past 4 weeks and MRI findings, plan to consult with rad onc david for simulation-this is TBD for inpatient vs. outpatient appointment. Qualifiers: Qualified Code(s): C34.91 - Malignant neoplasm of unspecified part of right bronchus or lung Oncology: Subj Interval history: Ms. Reis had a difficult night. She developed worsening SOB overnight and hypoxia. CXR this am reveals Progressive near complete opacification of the right hemithorax due to a combination of a large effusion and pulmonary consolidation/atelectasis. She is planned for pleurx catheter placement. She is dealing with emotions of her newly diagnosed lung cancer, coupled with the fact that she feels very poor, this is mentally distressing to patient. Pain is poorly controlled. Continues to endorse left sided temporal headaches. - Constitutional General appearance: cooperative, no acute distress, no febrile Exam: appears uncomfortable, tearful often during our discussion today - ENT ENT exam: Present: mucous membranes moist, normal oropharynx - Respiratory Respiratory exam: Present: decreased breath sounds, wheezes. Absent: respiratory distress - Cardiovascular Cardiovascular exam: Present: RRR, +S1, +S2 - GI/Abdominal GI/Abdominal exam: Present: normal bowel sounds, soft. Absent: tenderness - Extremities Exam Extremities exam: Present: normal inspection. Absent: calf tenderness - Neurological Exam Neurological exam: Present: alert, oriented X3, no focal deficits, strengths equal and symetr throughout - Psychiatric Psychiatric exam: Present: anxious, depressed - Skin Skin exam: Present: dry, intact, normal color, warm Oncology: Obj Data - Labs CBC & Chem 7: 11/24/18 05:36 11/24/18 05:36 Consult Discharge Plan - Plan Referrals: Mick Langford MD [Primary Care Provider] - Inpatient Charges Provider: Dr. Elsy White <Jasper White - Last Filed: 11/25/18 22:05> Date of Encounter: 11/25/18 Oncology: Obj Data - Labs CBC & Chem 7: 11/24/18 05:36 11/24/18 05:36 Inpatient Charges Provider: Dr. Elsy White Follow up - Inpatient: [id number] - Attending Attestation I examined this patient and my medical decision-making was reviewed with the Advanced Practice Nurse. I agree with the documented findings, disposition and treatment plan as described except to the extent set forth below. She is not having a good day. Emotionally, this is been very difficult for her. In addition, her shortness of breath has worsened. Plan was for discharge today. But given her shortness of breath and reaccumulation of her right-sided pleural effusion, Pleurx catheter placement is being arranged. 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 In addition, there is clival involvement. There is no intra-axial disease identified. The patient is uncertain she wants to pursue further therapy given how poorly she feels. We did discuss that her prognosis would be very poor she did not pursue radiation therapy and her symptoms are likely worsen quite quickly. After this discussion, the patient does elect to proceed with PET of radiotherapy to the brain as well as to the chest in attempt to open up her collapsed lung. Upon completion of radiation therapy, we can then discuss whether she was pursue systemic therapy. Next generation sequencing will be sent. Her case has been reviewed with radiation oncology as well. Expectations and prognosis were discussed with the patient and family today utilizing as well as not utilizing treatment. I spent 45 minutes in face- face communication with the patient today.
[2018-11-25] MEDS: Insulin DETEMIR 100 UNIT/ML X5UNITS SQ SCH (21:09)
--- NOTE | 2018-11-25 22:44 | Anesthesia Evaluation PreOp ---
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 HX Other Medical History: Diabetes Type II (well controlled), Thyroid Anesthesia History: No Prior Anesthetic Complications Alcohol Use: none Drug use: none Medications and Allergies ARIPiprazole [Abilify] 2 mg PO DAILY 11/20/18 [History] Albuterol Neb [Proventil Neb] 2.5 mg IH Q4HR 11/20/18 [History] Albuterol Sulfate [Ventolin Hfa] 2 puff IH Q4-6H PRN 11/20/18 [History] Beclomethasone Dip 40mcg REDIH [Qvar 40 Mcg Redihaler] 1 puff IH BID 11/20/18 [History] Escitalopram [Lexapro] 10 mg PO DAILY 11/20/18 [History] Levothyroxine Sodium 75 mcg PO DAILY 11/20/18 [History] Lisinopril [Zestril] 20 mg PO DAILY 11/20/18 [History] Allergy/AdvReac Type Severity Reaction Status Date / Time No Known Allergies Allergy Verified 11/20/18 15:57 - Meds/Allergy Pre-op Review Medications Reviewed: Yes Allergies Reviewed: Yes Beta Blockers on Current Med List: No Anesthesia Results - Labs 11/24/18 05:36 11/24/18 05:36 - Imaging EKG: report reviewed, image reviewed (SR) Additional studies: 2016 TTE: Impressions: Normal LV chamber size, wall thickness, and systolic function. LVEF 65-70%. Right ventricle was not well visualized. It appears grossly normal in size and function. No significant valvular dysfunction. Unable to estimate RVSP due to lack of TR jet. 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
[2018-11-26] MEDS: *HR* HYDROcodone/Acet 5/325 mg TABLET PO PRN ×3 (01:59→21:33)
[2018-11-26] MEDS: Ipratropium/Albuterol Neb 3 ML IH SCH ×4 (04:06→22:12)
[2018-11-26] MEDS: *HR* Morphine Sulfate SR (12 HR) 15 MG TABLET.ER PO SCH ×2 (05:48→17:23)
[2018-11-26] MEDS: ARIPiprazole 2 MG TABLET PO SCH (07:18)
[2018-11-26] MEDS: Insulin LISPRO 300 UNITS/3 ML VIAL SQ SCH ×4 (07:18→21:32)
[2018-11-26] MEDS: predniSONE 20 MG TABLET PO SCH (07:19)
[2018-11-26] MEDS: Lisinopril 20 MG TABLET PO SCH (07:19)
[2018-11-26] MEDS: cefTRIAXone 1,000 MG in Water for inj. (sterile) 20 ML 10 ML IVP SCH (08:37)
[2018-11-26 08:46] LABS: Basophils % 0.2 %; Eosinophils % 0.1 %; Hematocrit 42.7 % (35.3-44.9); Hemoglobin 13.3 g/dL (11.5-15.4); Immature Granulocytes % 1.4 % (0-4); Lymphocytes # 2.3 K/mcL (0.6-4.6); Lymphocytes % 11.8 %; Mean Corpuscular HGB Conc 31.1 g/dL (31.6-35.5); Mean Corpuscular Hemoglobin 25.9 pg (28.0-33.3); Mean Corpuscular Volume 83.1 fL (83.0-100.0); Mean Platelet Volume 10.6 fL (9.4-12.4); Monocytes # 1.6 K/mcL (0.0-1.3); Monocytes % 8.2 %; Neutrophils # 14.9 K/mcL (1.6-8.9); Platelet Count 434 K/mcL (140-400); Red Blood Count 5.14 M/mcL (3.82-4.97); Red Cell Distribution Width 15.8 % (11.5-14.5); Segmented Neutrophils % 78.3 %
[2018-11-26 08:58] LABS: INR 1.1; Prothrombin Time 12.4 Seconds (9.4-12.1)
[2018-11-26 09:06] LABS: BUN/Creatinine Ratio 28 (6-26); Blood Urea Nitrogen 18 mg/dL (6-20); Calcium 8.7 mg/dL (8.6-10.3); Carbon Dioxide 31 mEq/L (23-29); Chloride 95 mEq/L (98-107); Glucose 148 mg/dL (70-105); Osmolality,Calculated 293 (280-300); Sodium 139 mEq/L (136-145); eGFR For Non-African Americans > 60 (> 60)
[2018-11-26] MEDS: Doxycycline 100 MG in 0.9 % Sodium Chloride Mini Bag 100 ML IVPB SCH ×2 (11:28→23:20)
--- NOTE | 2018-11-26 11:32 | Internal Med Progress Note ---
Hospitalist Progress Note - Encounter Date of Encounter: 11/26/18 Time of Encounter: 09:00 - Subjective Interval History: No significant change in her breathing. No fever/chills or chest pain overnight. - Exam Vitals: Temp Pulse Resp BP Pulse Ox 98.4 F 66 20 102/64 90 11/26/18 11:12 11/26/18 11:12 11/26/18 11:12 11/26/18 11:12 11/26/18 11:12 Exam: General: mild distress but able to speak in full sentences Respiratory exam: Decreased air entry R>L Cardiovascular exam: RRR, +S1, +S2. no murmur GI/Abdominal exam: Non-tender, Non-distended, normal bowel sounds, soft, no peritoneal signs. Neurological exam: CN II-XII intact, AO X3, no focal deficits. Psych: Appropriate - Assessment and Plan (1) Acute and chronic respiratory failure Current Visit: Yes Status: Acute Assessment and Plan: Most likely secondary to postobstructive pneumonia and underlying malignancy a/w pleural effusion s/p thorocentesis on 11/21 with 1.2 L with exudative effusion final pathology: poorly differentiated NSCLC worsening symptoms on the night of 11/24 with CXR showing near complete opacification of the right hemithorax. for Pleurx catheter insertion today with thoracic surgery c/w supplemental oxygen, ceftriaxone, doxycycline (D7). Would aim for 10-14 day course (2) Pleural effusion exudative Current Visit: Yes Status: Acute Assessment and Plan: as above, recurrent and for PleurX catheter insertion today (3) Mass of right lung Current Visit: Yes Status: Acute Assessment and Plan: final path showed poorly differentiated NSCLC Lytic lesion in T11 concerning for metastatic disease. MRI brain concerning for leptomeningeal enhancement over the left frontal lobe as well as clival mets oncology input appreciated (4) Pneumonia Current Visit: Yes Status: Acute Assessment and Plan: abx as above wean O2 as tolerated (5) COPD with exacerbation Current Visit: Yes Status: Acute Assessment and Plan: continue to taper steroid, PO 40mg QD from today continue bronchodilators and tx with abx as above (6) Hypertension Current Visit: No Status: Chronic Assessment and Plan: Continue home meds (7) Hypothyroidism Current Visit: No Status: Chronic Assessment and Plan: continue home meds (8) Diabetes Current Visit: No Status: Chronic Assessment and Plan: Continue basal bolus insulin (9) Depression Current Visit: Yes Status: Acute Assessment and Plan: continue home meds (10) DVT prophylaxis Current Visit: No Status: Acute Assessment and Plan: EPCD in anticipation for PleurX catheter today - Time Spent with Patient Total time spent is greater than 50% in coordination of care (as documented) at patient's floor/unit and/or counseling patient: 25 - 35 minutes Plan of Care Discussed with: patient Internal Medicine: Result - Labs CBC & Chem 7: 11/26/18 08:26 11/26/18 08:26 Labs: Short CBC 11/26/18 Range/Units 08:26 WBC 19.1 H (4.3-11.1) K/mcL Hgb 13.3 (11.5-15.4) g/dL Hct 42.7 (35.3-44.9) % Plt Count 434 H (140-400) K/mcL Neutrophils # 14.9 H (1.6-8.9) K/mcL BMP 11/26/18 08:26 Sodium 139 Potassium 4.0 Chloride 95 L Carbon Dioxide 31 H BUN 18 Creatinine 0.65 Glucose 148 H Calcium 8.7 - ABG Interpretation ABG results: PT/INR, D-dimer PT 12.4 Seconds (9.4-12.1) H 11/26/18 08:26 - Impressions Impressions Brain MRI 11/25/18 18:32 IMPRESSION: 1. Mild motion degraded examination. 2. Marrow replacement and enhancement within the clivus most suspicious for osseous metastatic disease. 3. Dural thickening and enhancement overlying the left frontal lobe. This raises the possibility for dural metastasis. Attention to this on future follow-up is recommended. 4. No intra-axial metastatic disease. D/ / 11/25/2018 11:30:48 Sissy Gracia MD / sully Interpreting Provider: Sissy Gracia MD Consult Discharge Plan - Plan Referrals: Mick Langford MD [Primary Care Provider] - (1) Acute and chronic respiratory failure Qualifiers: Respiratory failure complication: hypoxia Qualified Code(s): J96.21 - Acute and chronic respiratory failure with hypoxia (4) Pneumonia Qualifiers: Pneumonia type: due to unspecified organism Laterality: right Lung location: unspecified part of lung Qualified Code(s): J18.9 - Pneumonia, unspecified organism (6) Hypertension Qualifiers: Hypertension type: essential hypertension Qualified Code(s): I10 - Essential (primary) hypertension (7) Hypothyroidism Qualifiers: Hypothyroidism type: unspecified Qualified Code(s): E03.9 - Hypothyroidism, unspecified (8) Diabetes Qualifiers: Diabetes mellitus type: type 2 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
[2018-11-26] MEDS ORDERED: *HR* FentaNYL (PF) 100 MCG/2 ML VIAL ONE (12:28)
[2018-11-26] MEDS ORDERED: *HR* Midazolam HCl 2 MG/2 ML VIAL ONE (12:29)
[2018-11-26] MEDS ORDERED: *HR* Propofol 200 MG/20 ML VIAL IVP ONE (12:29)
[2018-11-26] MEDS ORDERED: Dexamethasone 4 MG/ML VIAL ONE (12:31)
[2018-11-26] MEDS ORDERED: Lidocaine -MPF 2% 2 ML VIAL ONE (12:31)
[2018-11-26] MEDS ORDERED: *HR* Succinylcholine 200 MG/10 ML VIAL IVP ONE (12:31)
[2018-11-26] MEDS ORDERED: Ondansetron 4 MG/2 ML VIAL ONE (12:31)
[2018-11-26] MEDS ORDERED: Lidocaine 1% 20 ML MDV ONE (13:03)
[2018-11-26] MEDS ORDERED: *HR* HYDROmorphone (PF) 1 MG/ML SYRINGE IVP PRN (13:12)
[2018-11-26] MEDS ORDERED: *HR* Promethazine 25 MG/ML VIAL IVP PRN (13:12)
[2018-11-26] MEDS ORDERED: Ondansetron 4 MG/2 ML VIAL IVP ONE (13:12)
[2018-11-26] MEDS ORDERED: *HR* OxyCODONE Immed Rel 5 MG TABLET PO PRN (13:12)
--- NOTE | 2018-11-26 13:44 | Operative Note ---
Date of procedure: 11/26/18 Pre-op diagnosis: right upper lobe lung cancer, malignant pleural effusion Post-op diagnosis: same Procedure: right pleurx catheter Anesthesia: MAC, regional Surgeon: Parviz Rodriguez Was there an certified pharmacist assistant present: No Estimated blood loss (cc): 0 Specimen: none Condition: stable Disposition: PACU Procedure in Detail: The patient was room and placed on the operating table in the supine position. He was prepped and draped in usual sterile fashion. A combination of 1% lidocaine plain and half percent Marcaine plain used to anesthetize the skin and the subcutaneous tissues. 2 small incisions were made in the Pleurx catheter tunneled through the incision into the right pleural cavity. The incisions and the catheter were closed and secured, respectively, with interrupted 2-0 silk suture. 1000 mL of pleural effusion was evacuated. Sterile dressings were applied. Patient tolerated the procedure well.
--- NOTE | 2018-11-26 13:50 | Anesthesia Evaluation Post Op ---
Date of Encounter: 11/26/18 Time of Encounter: 13:48 - Vital Signs Vital Signs: Vital Signs/O2 Sat/Glucose, Most Recent Temp Pulse Resp BP Pulse Ox 98.4 F 66 20 102/64 90 11/26/18 11:12 11/26/18 11:12 11/26/18 11:12 11/26/18 11:12 11/26/18 11:12 Blood Glucose* 143 - Lungs Lungs: Clear Ascult./Percussion - Airway Airway: Non-obstructed - Cardiovascular Regular Rate - Mental Status Mental Status: Alert & Oriented, Answers Appropriately - Pain Pain Scale: 0 - Nausea Vomiting Nausea Vomiting: Not Present - Hydration Hydration: NPO - Discharge PostOp Status: Transfer Patient to floor
[2018-11-26 15:55] LABS: HSV Source BAL RML; HSV Source BAL RUL
--- NOTE | 2018-11-26 18:25 | Oncology Inp Progress Note ---
<Vanna Andre L - Last Filed: 11/26/18 18:23> Date of Encounter: 11/26/18 Time of Encounter: 14:30 (1) Cancer associated pain Current Visit: Yes Status: Acute Assessment and plan: Patient reports pleuritic pain to right chest that is poorly uncontrolled on 1 tab [place] every 8 hours as needed Plan: Continue norco to 1-2 tabs every 6 hours PRN She was started on MS Contin 15 mg every 12 hours Start colace PRN We are hopeful that drainage of pleural effusion will assist further in her pain control, if her pain remains poorly controlled may consider further titration of pain medication Patient is opioid naive and would like to slowly increase her pain medication as necessary Patient has terminal diagnosis and will be considered exempt from OAC 3731 (2) DVT prophylaxis Current Visit: No Status: Acute Assessment and plan: Lovenox on hold in preparation for upcoming pleurx cath placement SCD's (3) Malignant pleural effusion Current Visit: Yes Status: Acute Assessment and plan: Thoracentesis 11/21/18 with 1200mL of clear yellow fluid removed. Cytology reveals metastatic adenocarcinoma. cytokeratin 7 and TTF-1 positive, negative for Napsin-A Patient experienced worsening shortness of breath and hypoxia overnight. Repeat chest x-ray this morning revealed rapid accumulation of right pleural effusion. Plan Cardiothoracic surgery was consulted for rapid reaccumulation of pleural effusion, she is status post Pleurx catheter placement today with removal of 1 L of fluid (4) Pneumonia Current Visit: Yes Status: Acute Assessment and plan: Likely postobstructive ceftriaxone, doxycycline (D6) for 7 days Leukocytosis is responding Management per hospitalist team. Qualifiers: Pneumonia type: due to unspecified organism Laterality: right Lung location: unspecified part of lung Qualified Code(s): J18.9 - Pneumonia, unspecified organism (5) Adenocarcinoma of lung Current Visit: Yes Status: Acute Assessment and plan: CTA reveals large right pleural effusion with complete opacification of the right upper lobe with truncation of the right upper lobe bronchus, multifocal new noncalcified pulmonary nodules, Lytic lesion in the T11 superior endplate, concerning for metastatic disease. This could also represent a Schmorl's node. Bronchoscopy Dr. Crooks 11/21/18-extrinsic compression of the right upper lobe bronchus causing a 90% stenosis. There is also a 80% middle lobe stenosis due to an endobronchial lesion. Right lower lobe as 20% stenosis. Endobronchial biopsy of the right upper lobe pathology reveals poorly- differentiated non-small cell lung carcinoma. Thoracentesis 11/21/18 with 1200mL of clear yellow fluid removed. Cytology positive for metastatic adenocarcinoma. MRI brain today reveals marrow replacement and enhancement within the clivus suspicious for osseous metastatic disease as well as dural thickening and enhancement overlying the left frontal lobe raising the possibility for dural metastasis/leptomeningeal disease. Plan: Discussed pleural metastasis and MRI results with patient at bedside, introduced the idea of initially starting with palliative radiotherapy to brain as well as chest, followed by systemic treatment. Ms. Reis is understandably having a difficult time processing the idea of her advanced cancer and palliative intent of treatment. Encouraged her to entertain the idea of palliative radiotherapy to at least aid in her symptom control, as she continues to symptomatically improve we will continue to discuss treatment options. Patient has agreed to visit from our cone winder services but would like to wait until tomorrow. Plan to send tissue for next generation sequencing to assess for targetable mutation Given her report of significant H/A on daily basis for past 4 weeks and MRI findings, plan to consult with rad onc david for simulation-she is scheduled for radiation consultation and simulation on Friday, November 30 at 9 a.m. likely as outpatient Qualifiers: Qualified Code(s): C34.91 - Malignant neoplasm of unspecified part of right bronchus or lung Oncology: Subj Interval history: Ms. Reis was evaluated shortly postprocedure for Pleurx catheter placement. She is drowsy but easily arousable. She tolerated procedure well. She reports somewhat improvement in pain but right-sided pleuritic chest pain was poorly controlled prior to Pleurx catheter placement. She still has some discomfort following procedure. We will plan to continue to observe her pain level and are hopeful that drainage of pleural effusion will assist with better pain control. - Constitutional General appearance: cooperative, no acute distress, no febrile - Head Head exam: Present: atraumatic - ENT ENT exam: Present: mucous membranes moist, normal oropharynx - Respiratory Respiratory exam: Present: CTAB. Absent: respiratory distress - Cardiovascular Cardiovascular exam: Present: RRR, +S1, +S2 - GI/Abdominal GI/Abdominal exam: Present: normal bowel sounds, soft. Absent: tenderness - Extremities Exam Extremities exam: Present: normal inspection. Absent: calf tenderness - Neurological Exam Neurological exam: Present: alert, oriented X3, no focal deficits, strengths equal and symetr throughout - Psychiatric Psychiatric exam: Present: anxious, depressed - Skin Skin exam: Present: dry, intact, normal color, warm Oncology: Obj Data - Labs CBC & Chem 7: 11/26/18 08:26 11/26/18 08:26 Consult Discharge Plan - Plan Referrals: [facility] [Other] - 11/30/18 9:00 am (Please follow up as scheduled, per Cancer center) Mick Langford MD [Primary Care Provider] - Inpatient Charges Provider: Dr. Elsy White <CindyJasper Canada - Last Filed: 11/26/18 22:39> Date of Encounter: 11/26/18 Oncology: Obj Data - Labs CBC & Chem 7: 11/26/18 08:26 11/26/18 08:26 Inpatient Charges Provider: Dr. Elsy White Follow up - Inpatient: [id number] - Attending Attestation I examined this patient and my medical decision-making was reviewed with the Advanced Practice Nurse. I agree with the documented findings, disposition and treatment plan as described except to the extent set forth below. She is status post Pleurx catheter today. On exam, she is managed breath sounds in right lung. Heart regular rate and rhythm. Neurologic exam is nonfocal. She is sore from this procedure. Pain remains inadequately controlled. She is on MS Contin 15 mg twice daily as well as [place] as needed. We may increase her MS Contin tomorrow depending on symptoms. Continue with discharge planning. She will meet with Radiation Oncology Friday for AP OPERATOR and chest radiotherapy. We will set her up for appointment office in 2-3 weeks to discuss the next steps. Tumor will be sent for next generation sequencing as well.
[2018-11-26] MEDS: Insulin DETEMIR 100 UNIT/ML X5UNITS SQ SCH (21:33)
[2018-11-27] MEDS: *HR* HYDROcodone/Acet 5/325 mg TABLET PO PRN ×3 (03:58→21:02)
[2018-11-27] MEDS: Ipratropium/Albuterol Neb 3 ML IH SCH ×4 (04:01→22:06)
[2018-11-27 05:29] LABS: Basophils % 0.2 %; Hemoglobin 13.2 g/dL (11.5-15.4); Immature Granulocytes % 1.5 % (0-4); Lymphocytes # 1.9 K/mcL (0.6-4.6); Lymphocytes % 11.3 %; Mean Corpuscular HGB Conc 30.7 g/dL (31.6-35.5); Mean Corpuscular Hemoglobin 25.6 pg (28.0-33.3); Mean Corpuscular Volume 83.5 fL (83.0-100.0); Mean Platelet Volume 10.8 fL (9.4-12.4); Monocytes # 1.5 K/mcL (0.0-1.3); Monocytes % 8.5 %; Neutrophils # 13.4 K/mcL (1.6-8.9); Platelet Count 403 K/mcL (140-400); Red Blood Count 5.15 M/mcL (3.82-4.97); Segmented Neutrophils % 78.5 %
[2018-11-27] MEDS: *HR* Morphine Sulfate SR (12 HR) 15 MG TABLET.ER PO SCH ×2 (05:44→17:00)
[2018-11-27] MEDS: Insulin LISPRO 300 UNITS/3 ML VIAL SQ SCH ×4 (07:25→20:56)
[2018-11-27] MEDS: predniSONE 20 MG TABLET PO SCH (08:43)
[2018-11-27] MEDS: ARIPiprazole 2 MG TABLET PO SCH (08:43)
[2018-11-27] MEDS: cefTRIAXone 1,000 MG in Water for inj. (sterile) 20 ML 10 ML IVP SCH (08:44)
--- NOTE | 2018-11-27 09:11 | Cardiothoracic Progress Note ---
Date of Encounter: 11/27/18 Time of Encounter: 09:09 - Assessment and plan (1) Primary cancer of right upper lobe of lung Current Visit: Yes Status: Acute The assessment and plan as outlined above was discussed with the patient and/or family members who expressed understanding and agreement. All questions were answered. i have completed the pleurx catheter paperwork which is in the patients file at the nursing unit. discharge per primary. (2) Malignant pleural effusion Current Visit: Yes Status: Acute The assessment and plan as outlined above was discussed with the patient and/or family members who expressed understanding and agreement. All questions were answered. (3) Essential hypertension Current Visit: No Status: Chronic The assessment and plan as outlined above was discussed with the patient and/or family members who expressed understanding and agreement. All questions were answered. currently well controlled on home medications. (4) Mild protein-energy malnutrition Current Visit: Yes Status: Acute The assessment and plan as outlined above was discussed with the patient and/or family members who expressed understanding and agreement. All questions were answered. this is probably multifactorial: lung cancer, SOB and GOODE while trying to eat. start therapy once cell type known. may need megace or marinol. - Subjective Interval history: breathing better this morning compared to yesterday morning. Vital Signs, Last 4 Hours Temp Pulse Resp BP Pulse Ox 11/27/18 07:12 97.8 F 80 15 127/81 91 Oxgyen Flow Rate Oxygen Flow Rate (LPM) 5 Weight 11/25/18 11/26/18 11/27/18 23:59 23:59 23:59 Weight 91.8 kg 92.1 kg - Physical Examination General: Conversant, No Apparent Distress, Well developed, Well nourished HEENT: Atraumatic, Normocephaly Cardiac: Reg Rate and Rhythm, Normal S1 and S2 Incision: No signs of infection Lungs: Decreased breath sounds, Dullness to percussion, Other (cta on the left. decreased on the right. ) Neuro: Alert and responsive, No focal deficits noted, Cranial nerves intact, Motor nerves intact - Labs 11/27/18 03:57 11/26/18 08:26 Lab Results, Last 24 hours 11/27/18 03:57 WBC 17.1 H Hgb 13.2 Hct 43.0 Plt Count 403 H Consult Discharge Plan - Plan Referrals: [facility] [Other] - 04/01/19 9:00 am (Please follow up as scheduled, per Cancer center) Parviz Rodriguez MD [Partnered Physician] - 12/14/18 11:20 am (Please follow up as schedule...) Mick Langford MD [Primary Care Provider] - 12/07/18 10:00 am (Please follow up as schedule....)
--- NOTE | 2018-11-27 10:29 | Internal Med Progress Note ---
Hospitalist Progress Note - Encounter Date of Encounter: 11/27/18 Time of Encounter: 08:15 - Subjective Interval History: Underwent Pleurx catheter insertion yesterday uneventfully. Feels better in terms of her breathing, complains of expected discomfort over the insertion site. No fever/chills. - Exam Vitals: Temp Pulse Resp BP Pulse Ox 97.8 F 80 18 127/81 93 11/27/18 07:12 11/27/18 07:12 11/27/18 10:17 11/27/18 07:12 11/27/18 10:17 Exam: General: Not in distress, able to speak in full sentences Respiratory exam: Decreased air entry R>L but improved aeration Cardiovascular exam: RRR, +S1, +S2. no murmur GI/Abdominal exam: Non-tender, Non-distended, normal bowel sounds, soft, no peritoneal signs. Neurological exam: CN II-XII intact, AO X3, no focal deficits. Psych: Appropriate - Assessment and Plan (1) Acute and chronic respiratory failure Current Visit: Yes Status: Acute Assessment and Plan: Most likely secondary to postobstructive pneumonia and underlying malignancy a/w pleural effusion s/p thorocentesis on 11/21 with 1.2 L with exudative effusion final pathology: poorly differentiated NSCLC worsening symptoms on the night of 11/24 with CXR showing near complete opacification of the right hemithorax. s/p Pleurx catheter insertion POD#1, appreciate thoracic surgery input interestingly, postprocedure chest x-ray showed persistent, near complete opacification of R hemithorax, ?mucus plug with collapsed lung vs. worsening opacity will discuss with pulmonary Re: CT chest vs. ?possible bronch for clearance c/w supplemental oxygen, ceftriaxone, doxycycline (D8). Would aim for 10-14 day course. WBC slightly trending down (2) Pleural effusion exudative Current Visit: Yes Status: Acute Assessment and Plan: as above, recurrent and underwent PleurX catheter insertion yesterday (3) Mass of right lung Current Visit: Yes Status: Acute Assessment and Plan: final path showed poorly differentiated NSCLC Lytic lesion in T11 concerning for metastatic disease. MRI brain concerning for leptomeningeal enhancement over the left frontal lobe as well as clival mets oncology input appreciated (4) Pneumonia Current Visit: Yes Status: Acute Assessment and Plan: abx as above wean O2 as tolerated (5) COPD with exacerbation Current Visit: Yes Status: Acute Assessment and Plan: continue to taper steroid continue bronchodilators and tx with abx as above (6) Hypertension Current Visit: No Status: Chronic Assessment and Plan: Continue home meds (7) Hypothyroidism Current Visit: No Status: Chronic Assessment and Plan: continue home meds (8) Diabetes Current Visit: No Status: Chronic Assessment and Plan: Continue basal bolus insulin (9) Depression Current Visit: Yes Status: Acute Assessment and Plan: continue home meds (10) DVT prophylaxis Current Visit: No Status: Acute Assessment and Plan: SQ heparin - Time Spent with Patient Total time spent is greater than 50% in coordination of care (as documented) at patient's floor/unit and/or counseling patient: Greater than 35 minutes Plan of Care Discussed with: patient (discussed with pulmonary) Internal Medicine: Result - Labs CBC & Chem 7: 11/27/18 03:57 11/26/18 08:26 Labs: Short CBC 11/27/18 Range/Units 03:57 WBC 17.1 H (4.3-11.1) K/mcL Hgb 13.2 (11.5-15.4) g/dL Hct 43.0 (35.3-44.9) % Plt Count 403 H (140-400) K/mcL Neutrophils # 13.4 H (1.6-8.9) K/mcL - ABG Interpretation ABG results: PT/INR, D-dimer PT 12.4 Seconds (9.4-12.1) H 11/26/18 08:26 - Impressions Impressions Chest X-Ray 11/26/18 13:41 IMPRESSION: Interval placement of right-sided chest tube. Persistent and possibly increased size of large right pleural effusion. D/ / Jeff Layne / Jeff Layne Interpreting Provider: Jeff Layne Chest X-Ray 11/27/18 07:22 IMPRESSION: Stable chest x-ray, with near complete opacification of the right hemithorax. D/ / 11/27/2018 08:14:21 Lamin Mckeon MD / mika Interpreting Provider: Lamin Mckeon MD Consult Discharge Plan - Plan Referrals: [facility] [Other] - 11/30/18 9:00 am (Please follow up as scheduled, per Cancer center) Parviz Rodriguez MD [Partnered Physician] - 12/14/18 11:20 am (Please follow up as schedule...) Mick Langford MD [Primary Care Provider] - 12/07/18 10:00 am (Please follow up as schedule....) (1) Acute and chronic respiratory failure Qualifiers: Respiratory failure complication: hypoxia Qualified Code(s): J96.21 - Acute and chronic respiratory failure with hypoxia (4) Pneumonia Qualifiers: Pneumonia type: due to unspecified organism Laterality: right Lung location: unspecified part of lung Qualified Code(s): J18.9 - Pneumonia, unspecified organism (6) Hypertension Qualifiers: Hypertension type: essential hypertension Qualified Code(s): I10 - Essential (primary) hypertension (7) Hypothyroidism Qualifiers: Hypothyroidism type: unspecified Qualified Code(s): E03.9 - Hypothyroidism, unspecified (8) Diabetes Qualifiers: Diabetes mellitus type: type 2 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
[2018-11-27] MEDS: Doxycycline 100 MG in 0.9 % Sodium Chloride Mini Bag 100 ML IVPB SCH ×2 (11:20→22:59)
--- NOTE | 2018-11-27 11:23 | Pulmonology Progress Note ---
Date of Encounter: 11/27/18 Time of Encounter: 11:19 Assessment and Plan (1) Mass of right lung Current Visit: Yes Status: Acute Postthoracentesis there has she has persistent right lung opacification likely secondary to extrinsic tumor effect cannot exclude possibility of mucous plugging given narrowing of the bronchus intermedius agree with repeat no ncontrasted CT scan to evaluate for airway patency she is fairly asymptomatic at this time but could consider bronchoscopy based upon the results. Would keep her nothing by mouth at midnight for this reason (2) Malignant pleural effusion Current Visit: Yes Status: Acute Status post Pleurx catheter (3) Adenocarcinoma of lung Current Visit: Yes Status: Acute This appears to be stage IV with involvement in the pleura as well as the brain appreciate oncology evaluation Qualifiers: Qualified Code(s): C34.91 - Malignant neoplasm of unspecified part of right bronchus or lung (4) Tobacco abuse Current Visit: No Status: Chronic Tobacco cessation counseling given Subjective Principal diagnosis: Acute respiratory failure Interval history: Miss tavera was seen at bedside she was resting in bed in no distress she is mildly short of breath she says today she is overwhelmed with the nature of her diagnosis understandably Objective PUL Vital signs: Last Vital Signs Temp 97.3 F L 11/27/18 11:09 Pulse 83 11/27/18 11:09 Resp 15 11/27/18 11:09 BP 135/77 11/27/18 11:09 Pulse Ox 91 11/27/18 11:09 General appearance: no acute distress Eyes: nonicteric ENT: oropharynx moist Auscultation: left: clear, right: diminished breath sounds (base) Cardiovascular: regular rate and rhythm Gastrointestinal: normoactive bowel sounds, soft, non-tender Extremities: no cyanosis, no edema, no clubbing Musculoskeletal: no deformities normal mental status, non-focal exam mood appropriate Results - Laboratory Findings CBC and BMP: 11/27/18 03:57 11/26/18 08:26 PT/INR, D-dimer PT 12.4 Seconds (9.4-12.1) H 11/26/18 08:26 Abnormal lab findings: Abnormal lab results WBC 17.1 K/mcL (4.3-11.1) H 11/27/18 03:57 RBC 5.15 M/mcL (3.82-4.97) H 11/27/18 03:57 MCH 25.6 pg (28.0-33.3) L 11/27/18 03:57 MCHC 30.7 g/dL (31.6-35.5) L 11/27/18 03:57 RDW 16.0 % (11.5-14.5) H 11/27/18 03:57 Plt Count 403 K/mcL (140-400) H 11/27/18 03:57 Neutrophils # 13.4 K/mcL (1.6-8.9) H 11/27/18 03:57 Monocytes # 1.5 K/mcL (0.0-1.3) H 11/27/18 03:57 PT 12.4 Seconds (9.4-12.1) H 11/26/18 08:26 Chloride 95 mEq/L (98-107) L 11/26/18 08:26 Carbon Dioxide 31 mEq/L (23-29) H 11/26/18 08:26 BUN/Creatinine Ratio 28 (6-26) H 11/26/18 08:26 Glucose 148 mg/dL (70-105) H 11/26/18 08:26 POC Glucose 193 mg/dL (70-99) H 11/26/18 18:36 AST 10 Units/L (13-39) L 11/21/18 07:07 Alkaline Phosphatase 133 Units/L (34-104) H 11/21/18 07:07 Serum Total Protein 6.1 g/dL (6.4-8.9) L 11/21/18 07:07 Albumin 3.0 g/dL (3.5-5.7) L 11/21/18 07:07 Albumin/Globulin Ratio 1.0 (1.1-2.2) L 11/21/18 07:07 Fluid Appearance Cloudy (Clear) A 11/21/18 13:24 - Microbiology Findings Microbiology Findings: Microbiology, Last 48 Hours 11/20/18 15:40 Blood Culture - Final Peripheral Venipuncture No growth. Final report. 11/20/18 15:35 Blood Culture - Final Peripheral Venipuncture No growth. Final report. 11/21/18 13:24 Legionella Culture - Final Right Upper Lobe Lung 11/21/18 13:24 Legionella Culture - Final Right Middle Lobe Lung - Clinical Findings Intake & Output: Intake & Output 11/26/18 11/27/18 11/27/18 23:59 07:59 15:59 Weight 92.1 kg Consult Discharge Plan - Plan Referrals: [facility] [Other] - 11/30/18 9:00 am (Please follow up as scheduled, per Cancer center) Parviz Rodriguez MD [Partnered Physician] - 12/14/18 11:20 am (Please follow up as schedule...) Mick Langford MD [Primary Care Provider] - 12/07/18 10:00 am (Please follow up as schedule....)
--- NOTE | 2018-11-27 15:33 | Oncology Inp Progress Note ---
<Raciel Temple - Last Filed: 11/27/18 16:05> Date of Encounter: 11/27/18 Time of Encounter: 16:05 Oncology: Obj Data - Labs CBC & Chem 7: 11/27/18 03:57 11/26/18 08:26 Consult Discharge Plan - Plan Referrals: [facility] [Other] - 11/30/18 9:00 am (Please follow up as scheduled, per Cancer center) Parviz Rodriguez MD [Partnered Physician] - 12/14/18 11:20 am (Please follow up as schedule...) Mick Langford MD [Primary Care Provider] - 12/07/18 10:00 am (Please follow up as schedule....) Inpatient Charges Provider: Dr. Dary Temple Follow up - Inpatient: [id number] - Attending Attestation I examined this patient and my medical decision-making was reviewed with the Advanced Practice Nurse. I agree with the documented findings, disposition and treatment plan as described except to the extent set forth below. -Patient with Stage IV Lung Adenocarcinoma -CT chest w/contrast shows a mucous plug -Pulmonary considering repeat bronchoscopy to clear mucous plug tomorrow am <Vanna Andre - Last Filed: 11/27/18 18:37> Date of Encounter: 11/27/18 (1) Cancer associated pain Current Visit: Yes Status: Acute Assessment and plan: Patient reports pleuritic pain to right chest that is poorly uncontrolled on 1 tab [place] every 8 hours as needed Plan: Continue norco to 1-2 tabs every 6 hours PRN Continue MS Contin 15 mg every 12 hours Start colace PRN She does report manageable level of pain today, continue with current regimen Patient has terminal diagnosis and will be considered exempt from OAC 3731 (2) DVT prophylaxis Current Visit: No Status: Acute Assessment and plan: Lovenox on hold in preparation for upcoming bronchoscopy SCD's (3) Malignant pleural effusion Current Visit: Yes Status: Acute Assessment and plan: Thoracentesis 11/21/18 with 1200mL of clear yellow fluid removed. Cytology reveals metastatic adenocarcinoma. cytokeratin 7 and TTF-1 positive, negative for Napsin-A Patient experienced worsening shortness of breath and hypoxia overnight. Repeat chest x-ray this morning revealed rapid accumulation of right pleural effusion. Plan Cardiothoracic surgery was consulted for rapid reaccumulation of pleural effusion, she is status post Pleurx catheter placement 11/26/18 with removal of 1 L of fluid (4) Pneumonia Current Visit: Yes Status: Acute Assessment and plan: Likely postobstructive ceftriaxone, doxycycline (D6) for 7 days Leukocytosis is responding Management per hospitalist team. Further evaluated by pulmonology today and recommended repeat CT chest with concern for mucous plugging-pulm has recommended repeat bronchoscopy tomorrow Qualifiers: Pneumonia type: due to unspecified organism Laterality: right Lung location: unspecified part of lung Qualified Code(s): J18.9 - Pneumonia, unspecified organism (5) Adenocarcinoma of lung Current Visit: Yes Status: Acute Assessment and plan: CTA reveals large right pleural effusion with complete opacification of the right upper lobe with truncation of the right upper lobe bronchus, multifocal new noncalcified pulmonary nodules, Lytic lesion in the T11 superior endplate, concerning for metastatic disease. This could also represent a Schmorl's node. Bronchoscopy Dr. Crooks 11/21/18-extrinsic compression of the right upper lobe bronchus causing a 90% stenosis. There is also a 80% middle lobe stenosis due to an endobronchial lesion. Right lower lobe as 20% stenosis. Endobronchial biopsy of the right upper lobe pathology reveals poorly- differentiated non-small cell lung carcinoma. Thoracentesis 11/21/18 with 1200mL of clear yellow fluid removed. Cytology positive for metastatic adenocarcinoma. MRI brain today reveals marrow replacement and enhancement within the clivus suspicious for osseous metastatic disease as well as dural thickening and enhancement overlying the left frontal lobe raising the possibility for dural metastasis/leptomeningeal disease. 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 Ms. Reis is understandably having a difficult time processing the idea of her ad vanced cancer and palliative intent of treatment. Encouraged her to entertain the idea of palliative radiotherapy to at least aid in her symptom control, as she continues to symptomatically improve we will continue to discuss treatment options. We will send tissue for next generation sequencing to assess for targetable mutation She is scheduled for radiation consult and simulation-November 30 at 9 a.m. likely as outpatient if d/c home by this time Qualifiers: Qualified Code(s): C34.91 - Malignant neoplasm of unspecified part of right bronchus or lung Oncology: Subj Interval history: Ms. Reis appears to be more comfortable today. Pain under manageable control. She feels as though her breathing has improved since placement of Pleurx. She is on oxymask at 5L. - Constitutional General appearance: cooperative, no acute distress, no febrile - Head Head exam: Present: atraumatic - ENT ENT exam: Present: mucous membranes moist, normal oropharynx - Respiratory Respiratory exam: Present: decreased breath sounds, CTAB. Absent: respiratory distress - Cardiovascular Cardiovascular exam: Present: RRR - GI/Abdominal GI/Abdominal exam: Present: normal bowel sounds, soft. Absent: tenderness - Extremities Exam Extremities exam: Present: normal inspection. Absent: calf tenderness - Neurological Exam Neurological exam: Present: alert, oriented X3, no focal deficits, strengths equal and symetr throughout - Psychiatric Psychiatric exam: Present: anxious, depressed - Skin Skin exam: Present: dry, normal color, warm Oncology: Obj Data - Labs CBC & Chem 7: 11/27/18 03:57 11/26/18 08:26 Inpatient Charges Provider: Dr. Dary Temple
[2018-11-27] MEDS: *HR* Heparin 5,000 UNIT/ML VIAL SQ SCH (17:01)
[2018-11-27] MEDS ORDERED: *HR* Metoprolol 5 MG/5 ML VIAL IVP PRN (18:24)
[2018-11-27] MEDS: Insulin DETEMIR 100 UNIT/ML X5UNITS SQ SCH (21:02)
[2018-11-28 02:08] LABS: Basophils % 0.2 %; Eosinophils % 0.1 %; Hemoglobin 12.5 g/dL (11.5-15.4); Immature Granulocytes % 1.1 % (0-4); Lymphocytes # 1.8 K/mcL (0.6-4.6); Lymphocytes % 9.5 %; Mean Corpuscular HGB Conc 32.1 g/dL (31.6-35.5); Mean Corpuscular Hemoglobin 26.4 pg (28.0-33.3); Mean Corpuscular Volume 82.3 fL (83.0-100.0); Mean Platelet Volume 10.7 fL (9.4-12.4); Monocytes # 1.6 K/mcL (0.0-1.3); Monocytes % 8.9 %; Neutrophils # 14.9 K/mcL (1.6-8.9); Platelet Count 342 K/mcL (140-400); Red Blood Count 4.74 M/mcL (3.82-4.97); Segmented Neutrophils % 80.2 %
[2018-11-28 02:25] LABS: BUN/Creatinine Ratio 31 (6-26); Blood Urea Nitrogen 19 mg/dL (6-20); Calcium 8.6 mg/dL (8.6-10.3); Carbon Dioxide 29 mEq/L (23-29); Chloride 98 mEq/L (98-107); Glucose 127 mg/dL (70-105); Osmolality,Calculated 284 (280-300); Sodium 135 mEq/L (136-145); eGFR For Non-African Americans > 60 (> 60)
[2018-11-28] MEDS: Ipratropium/Albuterol Neb 3 ML IH SCH ×4 (04:03→21:57)
[2018-11-28] MEDS: *HR* HYDROcodone/Acet 5/325 mg TABLET PO PRN ×2 (04:24→21:48)
[2018-11-28] MEDS: *HR* Heparin 5,000 UNIT/ML VIAL SQ SCH ×2 (06:06→16:56)
[2018-11-28] MEDS: *HR* Morphine Sulfate SR (12 HR) 15 MG TABLET.ER PO SCH ×2 (06:07→16:57)
[2018-11-28] MEDS: cefTRIAXone 1,000 MG in Water for inj. (sterile) 20 ML 10 ML IVP SCH (08:29)
[2018-11-28] MEDS: predniSONE 20 MG TABLET PO SCH (08:29)
[2018-11-28] MEDS: ARIPiprazole 2 MG TABLET PO SCH (08:29)
[2018-11-28] MEDS: Insulin LISPRO 300 UNITS/3 ML VIAL SQ SCH ×4 (08:37→21:46)
--- NOTE | 2018-11-28 08:43 | Internal Med Progress Note ---
Hospitalist Progress Note - Encounter Date of Encounter: 11/28/18 Time of Encounter: 08:41 - Subjective Interval History: I have seen and evaluated the patient bedside. Patient reports improvement of her shortness of breath aftert PleurX catheter insertion. Denies chest pain, or shortness of breath. No clinical significant event in the past 24 hours. - Exam Vitals: Temp Pulse Resp BP Pulse Ox 97.5 F L 80 16 125/67 96 11/28/18 07:25 11/28/18 07:25 11/28/18 07:25 11/28/18 07:25 11/28/18 07:25 Exam: Vitals: reviewed General: Alert and oriented x4. In mild distress due to shortness of breath Skin: Normal color, no rash, no lesions. HEENT: EOM, pupils equal, round and reactive. Cardiovascular: RRR,, normal S1 & S2, no rubs, murmurs or gallops. Lungs: decreased breath sounds in the right lower lobe, no wheezing, or crackles Abdomen: Obese, soft, Mild tenderness in the LUQ, no rigidity. Extremities: No deformity, no edema or tenderness, no joint swelling or clubbing. Neurological: Normal cognition and motor skills. Rest of the physical exam is non contributory - Assessment and Plan (1) Pneumonia Current Visit: Yes Status: Acute Assessment and Plan: WBC count remain elevated patient on 8 days of IV antibiotics, possible secondary to pneumonia with mucous plug versus oral steroids. will broaden antibiotics coverage. discontinue Ceftriaxone. will start piperacillin/tazobactam 3.375mg/IV Q8HRs continue doxycycline 100mg/IV Q12hrs. CT of the chest with suspicious findings for possible mucus plug. patient is scheduled for a bronchoscopy. Pulm recommendations appreciated. Continue bronchodilators scheduled and when necessary. On prednisone 20 mg by mouth daily. Continue oxygen by nasal cannula, titrate for O2 sat duration more than 92% Standby BiPAP. Incentive spirometry (2) Acute and chronic respiratory failure Current Visit: Yes Status: Resolved Assessment and Plan: Plan of care as above. (3) Hypertension Current Visit: No Status: Chronic Assessment and Plan: Blood pressure has been stable/Controlled. Patient is on metoprolol 2.5 mg IV every 6 hours when necessary for systolic blood pressure more than 190. Resume home dose of lisinopril 20 mg by mouth daily. We will continue to monitor and adjust medication accordingly. (4) Hypothyroidism Current Visit: No Status: Chronic Assessment and Plan: On levothyroxine 75 mcg/PO Daily (5) Diabetes Current Visit: No Status: Chronic Assessment and Plan: Blood sugar has been uncontrolled. Patient is nothing by mouth, scheduled for the procedure. Will continue lispro low dose sliding scale ac. (6) Depression Current Visit: Yes Status: Acute Assessment and Plan: Patient is on aripiprazole 2 mg by mouth daily, and escitalopram 10 mg by mouth. No suicidal or homicidal ideation. 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 Hem&Onc is planning for palliative radiotherapy to brain as well as chest, followed by systemic treatment. Hem&Onc recommendations appreciated DVT Prophylaxis: Patient is on heparin subcutaneous. - Summary of Assessment and Plan Summary of Assessment and Plan: Patient to remain in the hospital due to mucous plugging, pneumonia on IV antibiotics. Scheduled for bronchoscopy. - Time Spent with Patient Total time spent is greater than 50% in coordination of care (as documented) at patient's floor/unit and/or counseling patient: Plan of Care Discussed with: patient (and the nurse.) Internal Medicine: Result - Labs CBC & Chem 7: 11/28/18 01:43 11/28/18 01:43 Labs: Short CBC 11/28/18 Range/Units 01:43 WBC 18.5 H (4.3-11.1) K/mcL Hgb 12.5 (11.5-15.4) g/dL Hct 39.0 (35.3-44.9) % Plt Count 342 (140-400) K/mcL Neutrophils # 14.9 H (1.6-8.9) K/mcL BMP 11/28/18 01:43 Sodium 135 L Potassium 4.0 Chloride 98 Carbon Dioxide 29 BUN 19 Creatinine 0.61 Glucose 127 H Calcium 8.6 - ABG Interpretation ABG results: PT/INR, D-dimer PT 12.4 Seconds (9.4-12.1) H 11/26/18 08:26 - Impressions Impressions Chest CT 11/27/18 13:00 IMPRESSION: Opacified right mainstem bronchus (mucus plug?) with complete right lung collapse. Interval placement of a right PleurX catheter which also likely accounts for scattered foci of gas within the pleural space. Infection/empyema less favored. No substantial change in scattered subcentimeter nodules within the left lung, suspicious for metastatic disease. Multifocal ground-glass opacities throughout the aerated left lung are new and are indeterminate. These could reflect areas of asymmetric pulmonary edema, developing infection or drug reaction/treatment response. Unchanged mediastinal lymphadenopathy, and, T11 and sternal lytic lesions. D/ / 11/27/2018 13:41:15 Onur Gomez / Vanesa Cervantes rts Interpreting Provider: Onur Gomez Consult Discharge Plan - Plan Referrals: [facility] [Other] - 11/30/18 9:00 am (Please follow up as scheduled, per Cancer center) Parviz Rodriguez MD [Partnered Physician] - 12/14/18 11:20 am (Please follow up as schedule...) Mick Langford MD [Primary Care Provider] - 12/07/18 10:00 am (Please follow up as schedule....) (1) Pneumonia Qualifiers: Pneumonia type: due to unspecified organism Laterality: right Lung location: unspecified part of lung Qualified Code(s): J18.9 - Pneumonia, unspecified organism (2) Acute and chronic respiratory failure Qualifiers: Respiratory failure complication: hypoxia Qualified Code(s): J96.21 - Acute and chronic respiratory failure with hypoxia (3) Hypertension Qualifiers: Hypertension type: essential hypertension Qualified Code(s): I10 - Essential (primary) hypertension (4) Hypothyroidism Qualifiers: Hypothyroidism type: unspecified Qualified Code(s): E03.9 - Hypothyroidism, unspecified (5) Diabetes Qualifiers: Diabetes mellitus type: type 2 Diabetes mellitus senior living insulin use: without senior living use Diabetes mellitus complication status: without complication Qualified Code(s): E11.9 - Type 2 diabetes mellitus without complications (6) Depression Qualifiers: Depression Type: major depressive disorder Major depression recurrence: recurrent Active/Remission status: currently active Major depression episode severity: moderate Qualified Code(s): F33.1 - Major depressive disorder, recurrent, moderate (9) Adenocarcinoma of lung Qualifiers: Laterality: right Qualified Code(s): C34.91 - Malignant neoplasm of unspecified part of right bronchus or lung
--- NOTE | 2018-11-28 09:54 | Cardiothoracic Progress Note ---
Date of Encounter: 11/28/18 Time of Encounter: 09:53 - Assessment and plan (1) Adenocarcinoma of lung Current Visit: Yes Status: Acute The patient has stage IV lung adenocarcinoma with metastases to the brain. She had a malignant right pleural effusion and a right Pleurx catheter was placed. The patient may be discharged at the discretion of the hospitalist and should follow-up with Dr. Rodriguez in 2 weeks. The assessment and plan as outlined above was discussed with the patient and/or family members who expressed understanding and agreement. All questions were answered. Qualifiers: Laterality: right Qualified Code(s): C34.91 - Malignant neoplasm of unspecified part of right bronchus or lung - Subjective Procedure(s) Performed: POD #2 S/P Right Pleurx catheter placement Interval history: The patient remained hemodynamically stable overnight. She is resting comfortably in her hospital bed. She is breathing comfortably. Vital Signs, Last 4 Hours Temp Pulse Resp BP Pulse Ox 11/28/18 07:25 97.5 F L 80 16 125/67 96 Oxgyen Flow Rate Oxygen Flow Rate (LPM) 5 Clinical Data, last 8 Hours Output, Urine Amount 400 Weight 11/26/18 11/27/18 11/28/18 23:59 23:59 23:59 Weight 92.1 kg 93 kg - Physical Examination General: Conversant, No Apparent Distress Neck: No JVD, Normal carotid pulses Cardiac: Reg Rate and Rhythm, Normal S1 and S2, No Murmur Incision: No signs of infection, Dry/intact dressing Lungs: Normal Breath Sounds, No Wheeze, Rales, Rhonchi Neuro: Alert and responsive, No focal deficits noted Vascular: Normal capillary refill Extremities: No Clubbing, No Cyanosis, No Edema - Labs 11/28/18 01:43 11/28/18 01:43 Lab Results, Last 24 hours 11/28/18 11/28/18 01:43 01:43 WBC 18.5 H Hgb 12.5 Hct 39.0 Plt Count 342 Sodium 135 L Potassium 4.0 Chloride 98 Carbon Dioxide 29 BUN 19 Creatinine 0.61 Glucose 127 H Calcium 8.6 Consult Discharge Plan - Plan Referrals: [facility] [Other] - 11/30/18 9:00 am (Please follow up as scheduled, per Cancer center) Parviz Rodriguez MD [Partnered Physician] - 12/14/18 11:20 am (Please follow up as schedule...) Mick Langford MD [Primary Care Provider] - 12/07/18 10:00 am (Please follow up as schedule....)
--- NOTE | 2018-11-28 10:03 | Pulmonology Progress Note ---
Date of Encounter: 11/28/18 Time of Encounter: 08:50 Assessment and Plan (1) Adenocarcinoma of lung Current Visit: Yes Status: Acute Patient CAT scan showed questionable of mucous plugs and will need diuretic visualization with bronchoscopy, I suspect this is malignant in nature. Qualifiers: Laterality: right Qualified Code(s): C34.91 - Malignant neoplasm of unspecified part of right bronchus or lung (2) Malignant pleural effusion Current Visit: Yes Status: Acute Status post Pleurx pleural catheter and to follow up with Dr. Rodriguez for that, since he placed this catheter. Subjective Principal diagnosis: Acute respiratory failure Interval history: Patient denies any changes in her condition and waiting for bronchoscopy Objective PUL Vital signs: Last Vital Signs Temp 97.5 F L 11/28/18 07:25 Pulse 80 11/28/18 07:25 Resp 16 11/28/18 07:25 BP 125/67 11/28/18 07:25 Pulse Ox 96 11/28/18 07:25 General appearance: appears uncomfortable Eyes: nonicteric ENT: oropharynx dry Neck: supple Effort: mildly labored Auscultation: left: rhonchi, right: diminished breath sounds Cardiovascular: regular rate and rhythm Gastrointestinal: normoactive bowel sounds Extremities: no cyanosis normal mental status mood appropriate Results - Laboratory Findings CBC and BMP: 11/28/18 01:43 11/28/18 01:43 PT/INR, D-dimer PT 12.4 Seconds (9.4-12.1) H 11/26/18 08:26 Abnormal lab findings: Abnormal lab results WBC 18.5 K/mcL (4.3-11.1) H 11/28/18 01:43 MCV 82.3 fL (83.0-100.0) L 11/28/18 01:43 MCH 26.4 pg (28.0-33.3) L 11/28/18 01:43 RDW 16.0 % (11.5-14.5) H 11/28/18 01:43 Neutrophils # 14.9 K/mcL (1.6-8.9) H 11/28/18 01:43 Monocytes # 1.6 K/mcL (0.0-1.3) H 11/28/18 01:43 PT 12.4 Seconds (9.4-12.1) H 11/26/18 08:26 Sodium 135 mEq/L (136-145) L 11/28/18 01:43 BUN/Creatinine Ratio 31 (6-26) H 11/28/18 01:43 Glucose 127 mg/dL (70-105) H 11/28/18 01:43 POC Glucose 152 mg/dL (70-99) H 11/27/18 19:42 AST 10 Units/L (13-39) L 11/21/18 07:07 Alkaline Phosphatase 133 Units/L (34-104) H 11/21/18 07:07 Serum Total Protein 6.1 g/dL (6.4-8.9) L 11/21/18 07:07 Albumin 3.0 g/dL (3.5-5.7) L 11/21/18 07:07 Albumin/Globulin Ratio 1.0 (1.1-2.2) L 11/21/18 07:07 Fluid Appearance Cloudy (Clear) A 11/21/18 13:24 - Clinical Findings Intake & Output: Intake & Output 11/27/18 11/28/18 11/28/18 23:59 07:59 15:59 Output Total 400 / 400 Balance -400 / -400 Weight 93 kg Consult Discharge Plan - Plan Referrals: [facility] [Other] - 11/30/18 9:00 am (Please follow up as scheduled, per Cancer center) Parviz Rodriguez MD [Partnered Physician] - 12/14/18 11:20 am (Please follow up as schedule...) Mick Langford MD [Primary Care Provider] - 12/07/18 10:00 am (Please follow up as schedule....)
[2018-11-28] MEDS: Lisinopril 20 MG TABLET PO SCH (10:36)
[2018-11-28] MEDS: Doxycycline 100 MG in 0.9 % Sodium Chloride Mini Bag 100 ML IVPB SCH ×2 (10:37→23:28)
--- NOTE | 2018-11-28 10:52 | Anesthesia Evaluation PreOp ---
Date of Encounter: 11/28/18 Time of Encounter: 10:50 - Past History Planned Operation: BRONCHOSCOPY Cardiac History: HTN Pulmonary History: Smoker, Asthma, COPD, Other (STAGE 4 LUNG CA WITH BRAIN METS, RIGHT MALIGNANT PLEURAL EFFUSION, POST PLEUREX CATH PLACEMENT, ?? MUCUS PLUGS) Other Medical History: Diabetes Type II, Thyroid Alcohol Use: none Drug use: none Medications and Allergies ARIPiprazole [Abilify] 2 mg PO DAILY 11/20/18 [History] Albuterol Neb [Proventil Neb] 2.5 mg IH Q4HR 11/20/18 [History] Albuterol Sulfate [Ventolin Hfa] 2 puff IH Q4-6H PRN 11/20/18 [History] Beclomethasone Dip 40mcg REDIH [Qvar 40 Mcg Redihaler] 1 puff IH BID 11/20/18 [History] Escitalopram [Lexapro] 10 mg PO DAILY 11/20/18 [History] Levothyroxine Sodium 75 mcg PO DAILY 11/20/18 [History] Lisinopril [Zestril] 20 mg PO DAILY 11/20/18 [History] Allergy/AdvReac Type Severity Reaction Status Date / Time No Known Allergies Allergy Verified 11/20/18 15:57 Anesthesia Results - Labs 11/28/18 01:43 11/28/18 01:43 Anesthesia Exam Vital Signs/O2 Sat/Glucose, Most Recent Temp Pulse Resp BP Pulse Ox 97.5 F L 80 16 125/67 96 11/28/18 07:25 11/28/18 07:25 11/28/18 07:25 11/28/18 07:25 11/28/18 07:25 Blood Glucose* 124 Weight: 93 KG, BMI 33 NPO (# of Hours): 8 - HEENT Mallampati: III Teeth: Normal Oral Opening: Greater than 3 - Cardiac Rhythm: Regular - Pulmonary Breath Sounds: bilateral Clear Respiratory Effort: Asymmetrical Anesthesia Assess/Plan ASA Score: 3 Anesthetic Plan: General Monitoring Plan: Standard Monitors Recovery Plan: PACU
[2018-11-28] MEDS ORDERED: Ondansetron 4 MG/2 ML VIAL IVP ONE (10:56)
[2018-11-28] MEDS ORDERED: Ipratropium/Albuterol Neb 3 ML IH ONE ×2 (10:56→12:25)
[2018-11-28] MEDS ORDERED: *HR* Promethazine 25 MG/ML VIAL IVP PRN (10:56)
[2018-11-28] MEDS ORDERED: Dexamethasone 4 MG/ML VIAL ONE (11:21)
[2018-11-28] MEDS ORDERED: Lidocaine -MPF 2% 2 ML VIAL ONE (11:21)
[2018-11-28] MEDS ORDERED: Ondansetron 4 MG/2 ML VIAL ONE (11:21)
[2018-11-28] MEDS ORDERED: Propofol 500 MG/50 ML INFUS..BTL ONE (11:21)
[2018-11-28] MEDS ORDERED: *HR* Propofol 200 MG/20 ML VIAL IVP ONE (11:21)
[2018-11-28] MEDS ORDERED: *HR* Succinylcholine 200 MG/10 ML VIAL IVP ONE (11:21)
[2018-11-28] MEDS ORDERED: Lidocaine -MPF 4% 5 ML AMPUL ONE (11:21)
[2018-11-28] MEDS ORDERED: Ringers Solution, Lactated 1,000 ML IVC SCH (11:30)
[2018-11-28] MEDS ORDERED: *HR* PHENYLEPHRINE 1,000 MCG/10 ML SYRINGE IVP ONE (11:35)
[2018-11-28] MEDS ORDERED: Ipratropium/Albuterol Neb 3 ML ONE (11:55)
[2018-11-28 15:17] LABS: Source of Body Fluid RML BAL
[2018-11-28] MEDS: Piperacillin/Tazobactam 3.375 GM in 0.9 % Sodium Chloride Mini Bag 100 ML IVPB SCH (15:54)
[2018-11-28 16:33] LABS: Appearance of Body Fluid Clear (Clear)
[2018-11-28 16:34] LABS: Volume of Body Fluid 25 mL
--- NOTE | 2018-11-28 18:12 | Anesthesia Evaluation Post Op ---
Date of Encounter: 11/28/18 Time of Encounter: 12:40 - Hydration Hydration: NPO - Discharge PostOp Status: Transfer Patient to floor (Patient's vital signs have been reviewed. Patient is stable postoperatively and has adequately recovered from anesthesia. Patient is determined to have stable airway patency and respiratory function including respiratory rate and oxygen saturation. Patient has a stable heart rate, blood pressure and adequate hydration. Patients mental status is acceptable. Patients temperature is appropriate. Pain and nausea are adequately controlled.)
[2018-11-28] MEDS: Insulin DETEMIR 100 UNIT/ML X5UNITS SQ SCH (21:46)
[2018-11-29] MEDS: Piperacillin/Tazobactam 3.375 GM in 0.9 % Sodium Chloride Mini Bag 100 ML IVPB SCH ×3 (00:32→16:18)
[2018-11-29] MEDS: Ipratropium/Albuterol Neb 3 ML IH SCH ×4 (04:39→22:05)
[2018-11-29] MEDS: *HR* Heparin 5,000 UNIT/ML VIAL SQ SCH ×2 (06:45→17:01)
[2018-11-29] MEDS: *HR* Morphine Sulfate SR (12 HR) 15 MG TABLET.ER PO SCH ×2 (06:45→17:01)
[2018-11-29 07:04] LABS: Basophils % 0.1 %; Hematocrit 37.9 % (35.3-44.9); Hemoglobin 11.5 g/dL (11.5-15.4); Immature Granulocytes % 0.8 % (0-4); Lymphocytes # 1.4 K/mcL (0.6-4.6); Lymphocytes % 8.8 %; Mean Corpuscular HGB Conc 30.3 g/dL (31.6-35.5); Mean Corpuscular Hemoglobin 26.1 pg (28.0-33.3); Mean Corpuscular Volume 85.9 fL (83.0-100.0); Monocytes # 1.4 K/mcL (0.0-1.3); Platelet Count 332 K/mcL (140-400); Red Blood Count 4.41 M/mcL (3.82-4.97); Red Cell Distribution Width 16.3 % (11.5-14.5); Segmented Neutrophils % 81.3 %
[2018-11-29 07:26] LABS: BUN/Creatinine Ratio 31 (6-26); Blood Urea Nitrogen 18 mg/dL (6-20); Calcium 8.8 mg/dL (8.6-10.3); Carbon Dioxide 29 mEq/L (23-29); Chloride 99 mEq/L (98-107); Glucose 130 mg/dL (70-105); Magnesium 2.1 mg/dL (1.6-2.6); Osmolality,Calculated 286 (280-300); Phosphorous 3.3 mg/dL (2.7-4.5); Potassium 4.1 mEq/L (3.5-5.1); Sodium 136 mEq/L (136-145); eGFR For Non-African Americans > 60 (> 60)
[2018-11-29] MEDS: ARIPiprazole 2 MG TABLET PO SCH (08:26)
[2018-11-29] MEDS: predniSONE 20 MG TABLET PO SCH (08:26)
[2018-11-29] MEDS: Insulin LISPRO 300 UNITS/3 ML VIAL SQ SCH ×4 (08:26→20:08)
[2018-11-29] MEDS: Lisinopril 20 MG TABLET PO SCH (08:27)
--- NOTE | 2018-11-29 11:09 | Cardiothoracic Progress Note ---
Date of Encounter: 11/29/18 Time of Encounter: 11:05 - Assessment and plan (1) Adenocarcinoma of lung Current Visit: Yes Status: Acute The patient has stage IV lung adenocarcinoma with metastases to the brain. She had a malignant right pleural effusion and a right Pleurx catheter was placed. The patient may be discharged at the discretion of the hospitalist and should follow-up with Dr. Rodriguez in 2 weeks. The assessment and plan as outlined above was discussed with the patient and/or family members who expressed understanding and agreement. All questions were answered. Qualifiers: Laterality: right Qualified Code(s): C34.91 - Malignant neoplasm of unspecified part of right bronchus or lung - Subjective Procedure(s) Performed: POD #3 S/P Right Pleurx catheter placement Interval history: The patient remained hemodynamically stable overnight. She is resting comfortably in her hospital bed. She is breathing comfortably. Vital Signs, Last 4 Hours Temp Pulse Resp BP Pulse Ox 11/29/18 11:02 97.9 F 88 18 118/77 96 Oxgyen Flow Rate Oxygen Flow Rate (LPM) 5 Clinical Data, last 8 Hours Output, Urine Amount 200 Weight 11/27/18 11/28/18 11/29/18 23:59 23:59 23:59 Weight 92.1 kg 93 kg 92.7 kg - Physical Examination General: Conversant, No Apparent Distress Neck: No JVD, Normal carotid pulses Cardiac: Reg Rate and Rhythm, Normal S1 and S2, No Murmur Incision: No signs of infection, Dry/intact dressing Lungs: Normal Breath Sounds, No Wheeze, Rales, Rhonchi Neuro: Alert and responsive, No focal deficits noted Vascular: Normal capillary refill Musculoskeletal: No Chest Wall Tenderness Extremities: No Clubbing, No Cyanosis, No Edema - Labs 11/29/18 06:15 11/29/18 06:15 Lab Results, Last 24 hours 11/29/18 11/29/18 06:15 06:15 WBC 16.0 H Hgb 11.5 Hct 37.9 Plt Count 332 Sodium 136 Potassium 4.1 Chloride 99 Carbon Dioxide 29 BUN 18 Creatinine 0.58 L Glucose 130 H Calcium 8.8 Magnesium 2.1 Consult Discharge Plan - Plan Referrals: [facility] [Other] - 11/30/18 9:00 am (Please follow up as scheduled, per Cancer center) Parviz Rodriguez MD [Partnered Physician] - 12/14/18 11:20 am (Please follow up as schedule...) Mick Langford MD [Primary Care Provider] - 12/07/18 10:00 am (Please follow up as schedule....)
[2018-11-29] MEDS: Doxycycline 100 MG in 0.9 % Sodium Chloride Mini Bag 100 ML IVPB SCH ×2 (12:27→22:54)
[2018-11-29] MEDS: *HR* HYDROcodone/Acet 5/325 mg TABLET PO PRN ×2 (12:29→20:37)
[2018-11-29] MEDS: Insulin DETEMIR 100 UNIT/ML X5UNITS SQ SCH (20:09)
--- NOTE | 2018-11-29 22:04 | Internal Med Progress Note ---
Hospitalist Progress Note - Encounter Date of Encounter: 11/29/18 Time of Encounter: 19:00 - Subjective Interval History: SUBJECTIVE: The patient is a 48-year-old woman. 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 She developed a right pleural effusion. She got Pleurx right-sided catheter today (thoracic surgery). She feels good. She does not have any significant pain. She is on nasal cannula oxygen. She has been bedbound recently. OBJECTIVE: Skin: Free of rash and discoloration. ENMT: Oral/pharyngeal mucosa is normal in appearance. Eyes: Sclera is white. There is no discharge from eyes. Respiratory: Normal breath sounds; no crackles or wheezes. CV: Heart is regular; no gallop or murmur. GI: Abdomen is soft and not tender. There is no palpable mass or visceromegaly. Neuro: There is no focal deficits. ADDITIONAL DATA: CBC showed hemoglobin of 11.5 with a WBC of 16.0 thousand and normal platelet count. BMP is normal. ASSESSMENT AND PLAN: Adenocarcinoma flank. Stage IV. With resolving pneumonia/COPD exacerbation. To continue supplemental oxygen with doxycycline,prednisone and nebulizer treatments with DuoNeb. Waiting for hospice service to be ready to get her for outpatient treatment. Type 2 diabetes mellitus has/hypertension. She is on Levemir and when necessary Humalog. She gets Lopressor and Zestril. DISPOSITION: Tentative discharge is sometime tomorrow afternoon. - Exam Vitals: Temp Pulse Resp BP Pulse Ox 97.3 F L 82 16 100/63 97 11/29/18 18:36 11/29/18 18:36 11/29/18 18:36 11/29/18 18:36 11/29/18 18:36 Exam: xx - Assessment and Plan (1) Adenocarcinoma of lung Current Visit: Yes Status: Acute (2) Pleural effusion exudative Current Visit: Yes Status: Acute (3) Pneumonia Current Visit: Yes Status: Acute (4) COPD with exacerbation Current Visit: Yes Status: Acute (5) Acute and chronic respiratory failure Current Visit: Yes Status: Resolved (6) Diabetes Current Visit: No Status: Chronic (7) Hypertension Current Visit: No Status: Chronic (8) Hypothyroidism Current Visit: No Status: Chronic - Time Spent with Patient Total time spent is greater than 50% in coordination of care (as documented) at patient's floor/unit and/or counseling patient: 25 - 35 minutes Plan of Care Discussed with: patient (and family) Internal Medicine: Result - Labs CBC & Chem 7: 11/29/18 06:15 11/29/18 06:15 Labs: Short CBC 11/29/18 Range/Units 06:15 WBC 16.0 H (4.3-11.1) K/mcL Hgb 11.5 (11.5-15.4) g/dL Hct 37.9 (35.3-44.9) % Plt Count 332 (140-400) K/mcL Neutrophils # 13.0 H (1.6-8.9) K/mcL BMP 11/29/18 06:15 Sodium 136 Potassium 4.1 Chloride 99 Carbon Dioxide 29 BUN 18 Creatinine 0.58 L Glucose 130 H Calcium 8.8 - ABG Interpretation ABG results: PT/INR, D-dimer PT 12.4 Seconds (9.4-12.1) H 11/26/18 08:26 Consult Discharge Plan - Plan Referrals: [facility] [Other] - 11/30/18 9:00 am (Please follow up as scheduled, per Cancer center) Parviz Rodriguez MD [Partnered Physician] - 12/14/18 11:20 am (Please follow up as schedule...) Mick Langford MD [Primary Care Provider] - 12/07/18 10:00 am (Please follow up as schedule....) ___ (1) Adenocarcinoma of lung Qualifiers: Laterality: right Qualified Code(s): C34.91 - Malignant neoplasm of unspecified part of right bronchus or lung (3) Pneumonia Qualifiers: Pneumonia type: due to unspecified organism Laterality: right Lung location: unspecified part of lung Qualified Code(s): J18.9 - Pneumonia, unspecified organism (5) Acute and chronic respiratory failure Qualifiers: Respiratory failure complication: hypoxia Qualified Code(s): J96.21 - Acute and chronic respiratory failure with hypoxia (6) Diabetes Qualifiers: Diabetes mellitus type: type 2 Diabetes mellitus care home insulin use: without tank terminal gauger use Diabetes mellitus complication status: without c omplication Qualified Code(s): E11.9 - Type 2 diabetes mellitus without co mplications (7) Hypertension Qualifiers: Hypertension type: essential hypertension Qualified Code(s): I10 - Essential (primary) hypertension (8) Hypothyroidism Qualifiers: Hypothyroidism type: unspecified Qualified Code(s): E03.9 - Hypothyroidism, unspecified
[2018-11-30] MEDS: Piperacillin/Tazobactam 3.375 GM in 0.9 % Sodium Chloride Mini Bag 100 ML IVPB SCH ×2 (00:36→08:34)
[2018-11-30] MEDS: *HR* HYDROcodone/Acet 5/325 mg TABLET PO PRN ×3 (03:14→21:38)
[2018-11-30] MEDS: Ipratropium/Albuterol Neb 3 ML IH SCH ×4 (04:11→22:52)
[2018-11-30] MEDS: *HR* Morphine Sulfate SR (12 HR) 15 MG TABLET.ER PO SCH ×2 (05:54→17:12)
[2018-11-30] MEDS: *HR* Heparin 5,000 UNIT/ML VIAL SQ SCH ×2 (05:54→17:13)
[2018-11-30] MEDS: Insulin LISPRO 300 UNITS/3 ML VIAL SQ SCH ×4 (07:32→21:36)
[2018-11-30] MEDS: Lisinopril 20 MG TABLET PO SCH (08:34)
[2018-11-30] MEDS: ARIPiprazole 2 MG TABLET PO SCH (08:35)
[2018-11-30] MEDS: predniSONE 20 MG TABLET PO SCH (08:35)
--- NOTE | 2018-11-30 08:55 | Cardiothoracic Progress Note ---
Date of Encounter: 11/30/18 Time of Encounter: 08:54 - Assessment and plan (1) Primary cancer of right upper lobe of lung Current Visit: Yes Status: Acute The assessment and plan as outlined above was discussed with the patient and/or family members who expressed understanding and agreement. All questions were answered. i have completed the pleurx catheter paperwork which is in the patients file at the nursing unit. discharge per primary. (2) Malignant pleural effusion Current Visit: Yes Status: Acute The assessment and plan as outlined above was discussed with the patient and/or family members who expressed understanding and agreement. All questions were answered. 200cc of serosanguinous fluid drained from the pleurx by me. (3) Essential hypertension Current Visit: No Status: Chronic The assessment and plan as outlined above was discussed with the patient and/or family members who expressed understanding and agreement. All questions were answered. currently well controlled on home medications. (4) Mild protein-energy malnutrition Current Visit: Yes Status: Acute The assessment and plan as outlined above was discussed with the patient and/or family members who expressed understanding and agreement. All questions were answered. this is probably multifactorial: lung cancer, SOB and GOODE while trying to eat. start therapy once cell type known. may need megace or marinol. - Subjective Interval history: breathing better this morning compared to yesterday morning. Vital Signs, Last 4 Hours Temp Pulse Resp BP Pulse Ox 11/30/18 06:59 97.8 F 72 18 131/73 96 Oxgyen Flow Rate Oxygen Flow Rate (LPM) 5 Clinical Data, last 8 Hours Output, Urine Amount 200 Weight 11/28/18 11/29/18 11/30/18 23:59 23:59 23:59 Weight 93 kg 92.7 kg 115.224 kg - Physical Examination General: Conversant, No Apparent Distress, Well developed, Well nourished HEENT: Atraumatic, Normocephaly Cardiac: Reg Rate and Rhythm, Normal S1 and S2, No Murmur Lungs: Other (ct on the left. decreased at the right base. ) Neuro: Alert and responsive, No focal deficits noted, Cranial nerves intact, Motor nerves intact Abdomen: Soft, Non-tender, Other (flatus and bm yesterday. ) Other: 200cc of serous fluid drained by me through the pleurx catheter. - Labs 11/29/18 06:15 03/31/19 06:15 Consult Discharge Plan - Plan Referrals: [facility] [Other] - 11/30/18 9:00 am (Please follow up as scheduled, per Cancer center) Parviz Rodriguez MD [Partnered Physician] - 12/14/18 11:20 am (Please follow up as schedule...) Mick Langford MD [Primary Care Provider] - 12/07/18 10:00 am (Please follow up as schedule....)
--- NOTE | 2018-11-30 10:38 | Rad Onc Consult Note ---
Radiation Oncology HPI - Oncology history Comments: Diagnosis: Adenocarcinoma of the right lung, cT4 cN2 cM1c Previous Treatment: 11/21/2018: Bronchoscopy with endobronchial biopsy; right thoracentesis 11/26/2018: Right Pleurx catheter placement 11/28/2018: Bronchoscopy Date: 11/30/18 Primary Care Provider: Mick Langford MD Chief complaint: headache History of present illness: Mrs. Reis is a pleasant 48-year-old female with a history of tobacco abuse, COPD, and asthma who is currently admitted and being seen in consultation for newly diagnosed metastatic adenocarcinoma of the right lung. She had initially presented with one-month worsening shortness of breath and headache. CTA of the chest on 11/20/2018 demonstrated a large right pleural effusion with complete opacification of the right upper lobe and truncation of the right upper lobe bronchus. A lytic lesion of T11 was concerning for metastatic disease. Multiple noncalcified pulmonary nodules are also seen. Bronchoscopy was performed on 11/21/2018 demonstrating extrinsic compression in the right upper lobe 90% occluded, right middle lobe 80% occluded, right lower lobe 20% occluded. An endobronchial lesion was also noted and biopsy was obtained consistent with poorly differentiated non-small cell carcinoma. She also underwent thoracentesis the same day with right pleural fluid consistent with metastatic adenocarcinoma. MRI of the brain was performed on 11/25/2018 demonstrating a clival metastasis as well as dural thickening and enhancement along the left frontal lobe. She underwent Pleurx catheter placement on 11/26/2018 under the care of Dr. Rodriguez. Repeat bronchoscopy on 11/28/2018 again demonstrated narrowing in the right middle lobe with malignant-appearing lesion causing near complete occlusion. This was measured at 3 cm from the luis m with mucus plugging noted. Today, she notes persistent headache. She denies changes in weight or appetite. She denies any other neurologic symptoms including diplopia, focal weakness, focal numbness, seizure. Prior to her hospitalization she was smoking approximately 1 pack of cigarettes daily having smoked for 37 years. Past Medical History: asthma, COPD, hypertension, thyroid disease Surgical History: Adenoidectomy, cholecystectomy, Tonsillectomy Smoking Status: Current every day smoker Smokeless Tobacco Status: No Alcohol use: none Drug use: none Oncology - Medications ARIPiprazole [Abilify] 2 mg PO DAILY 11/20/18 [History] Albuterol Neb [Proventil Neb] 2.5 mg IH Q4HR 11/20/18 [History] Albuterol Sulfate [Ventolin Hfa] 2 puff IH Q4-6H PRN 11/20/18 [History] Beclomethasone Dip 40mcg REDIH [Qvar 40 Mcg Redihaler] 1 puff IH BID 11/20/18 [History] Escitalopram [Lexapro] 10 mg PO DAILY 11/20/18 [History] Levothyroxine Sodium 75 mcg PO DAILY 11/20/18 [History] Lisinopril [Zestril] 20 mg PO DAILY 11/20/18 [History] Allergy/AdvReac Type Severity Reaction Status Date / Time No Known Allergies Allergy Verified 11/20/18 15:57 Review of Systems Provider Comments: A 12 point review of systems was performed. Pertinent positives and negatives are listed below and in the history of present illness. All other systems negative. Physical Exam - Vitals Vital Signs: Last Vital Signs Temp 97.8 F 11/30/18 06:59 Pulse 72 11/30/18 06:59 Resp 19 11/30/18 10:26 BP 131/73 11/30/18 06:59 Pulse Ox 95 11/30/18 10:26 Weight: 115.224 kg ECO - Consciousness/Orientation Level Of Consciousness: Awake, Alert, Appropriate Patient Orientation: Person, Place, Time, Name, Age, Date of , Day of Month, Day of Week, Month, Year, Time of Day Physical Exam: GENERAL: Alert and oriented, comfortable appearing, age appropriate appearing, O2 via nasal cannula, obese. PSYCH: Affect appropriate for circumstances HEENT: Sclerae anicteric. No mucositis or thrush. No other oral or pharyngeal lesions or erythema. Skin: No rashes or petechiae. Warm to touch. Lymph nodes: No cervical or supraclavicular adenopathy. Lungs: Absent right hemithorax breath sounds, clear on the left. Cardiovascular: Regular rhythm and normal rate. No gallops, murmurs, or rubs. Extremities: No edema. No calf swelling or tenderness. No joint deformity. extraoccular mvts intact, pupils equally round and reactive to light and accommodation, visual chen intact, no facial droop, palate elevation symmetric, facial sensation intact, tongue midline full shoulder shrug, hearing grossly normal Motor: tone normal, 5/5 in all 4 extremities Sensory: symmetric to light touch bilaterally Gait: gait not assessed Oncology- Results - Diagnostic Studies Imaging: CT OF THE ABDOMEN AND PELVIS WITHOUT CONTRAST 10/17/2018 1. Small right pleural effusion with right lower lobe atelectasis. 2. Indeterminate right lower lobe nodule 7.8 x 7.8 mm. Refer to Fleischner criteria follow-up. 3. Hepatomegaly. 4. Cholecystectomy. 5. Diverticulosis. CTA OF THE CHEST 11/20/2018 1. No evidence of a pulmonary embolism. 2. Large right pleural effusion with complete opacification of the right upper lobe with truncation of the right upper lobe bronchus. This could be related to an infectious/inflammatory process. Underlying malignancy with post obstructive pneumonia cannot be excluded. Endoscopy, tissue sampling, versus PET-CT may be of benefit for further evaluation. 3. There are multifocal new noncalcified pulmonary nodules, concerning for metastatic disease versus sequela of an infectious/inflammatory process. 4. Lytic lesion in the T11 superior endplate, concerning for metastatic disease. This could also represent a Schmorl's node. MRI OF THE BRAIN WITHOUT AND WITH CONTRAST 11/25/2018 1. Mild motion degraded examination. 2. Marrow replacement and enhancement within the clivus most suspicious for osseous metastatic disease. 3. Dural thickening and enhancement overlying the left frontal lobe. This raises the possibility for dural metastasis. Attention to this on future follow-up is recommended. 4. No intra-axial metastatic disease. Pathology: 11/21/2018 A. Lung, right upper lobe, endobronchial biopsy: - Poorly-differentiated non-small cell carcinoma. B. Lung, right middle lobe, endobronchial biopsy: - Bronchial mucosa with no diagnostic abnormality. Note: (A): Histologic sections demonstrate infiltrating poorly-differentiated non- small cell carcinoma. Immunohistochemical stains show that tumor cells express cytokeratin 7; cells are negative for TTF-1, Napsin-A, p63, cytokeratin 5/6 and cytokeratin 20. The immunophenotype is non-specific. The histologic and immunophenotypic findings likely represent poorly-differentiated non-small cell lung carcinoma. 11/21/2018 A. Pleural fluid: - Metastatic adenocarcinoma. Note: Immunohistochemical stains show that tumor cells express cytokeratin 7 and TTF- 1; cells are negative for Napsin-A. The immunophenotype is consistent with adenocarcinoma of lung origin. 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 We reviewed basic oncologic concepts including staging, local and systemic treatment interventions, patterns of spread, and imaging sensitivity. We reviewed her stage IV diagnosis and what this means with respect to incurability. We discussed the palliative nature of any intervention including systemic therapy and radiation therapy. Her most bothersome symptoms currently are related to her leptomeningeal disease causing headaches as well as ongoing respiratory issues related to pleural effusion and central obstruction. She did have a Pleurx catheter placed. We discussed that radiotherapy can be helpful for both pain and obstruction and discussed the option to do palliative radiotherapy to the right lung as well as whole brain. I discussed the logistics, acute side effects, long-term complication risks(including cognitive decline and short term memory deficit), and expected benefit of both sites of radiotherapy in detail. All questions were addressed. She wished to proceed. [facility]. I anticipate a course of 3000 cGy in 10 fractions using 3-D conformal radiotherapy to each site. Treatments will likely start 12/02/2018 and can be done as an inpatient or outpatient. We will long discussion regarding prognosis as well. She has discussed this with her other providers. At this point, she plans to proceed with radiotherapy and may or may not consider chemotherapy after that. We did discuss hospice care and philosophy at length today. Thank for allowing me to participate in this patient's care. Please do not hesitate in contacting me with any questions or concerns. Bobby Manzanares MD Radiation Oncologist [facility] [address] [facility] [address] [place] [address] This report was generated using [employer]ation.
[2018-11-30] MEDS: Doxycycline 100 MG in 0.9 % Sodium Chloride Mini Bag 100 ML IVPB SCH ×2 (11:10→23:48)
--- NOTE | 2018-11-30 13:24 | Rad Onc Dictation ---
Radiation Oncology Dictation Date of Service: 11/30/18 - Oncology History Comments: Diagnosis: Adenocarcinoma of the right lung, cT4 cN2 cM1c Previous Treatment: 11/21/2018: Bronchoscopy with endobronchial biopsy; right thoracentesis 11/26/2018: Right Pleurx catheter placement 11/28/2018: Bronchoscopy - Procedure Note Comments: CT Simulation and Treatment Planning Note For palliative radiotherapy to the whole brain and right lung/mediastinum. POSITIONING AND DEVICES Vanna was brought into the CT Simulation suite and placed in the supine position. A thermoplastic head only mask was created. 3D CT SIMULATION 3D CT Simulation was required secondary to irregular shape of the target volume, close proximity to critical normal structures, target volume requires 3D imaging for identification. Critical normal structures adjacent to the target volume include the following: heart, lungs, esophagus, brain, spinal cord, brainstem. CT images were obtained. [employer] software was utilized to place an isocenter for treatment planning. This will be transferred to the lasers in the treatment room and will be used to nadeem the patient for daily positioning. A 2 field plan will be utilized to deliver 3000 cGy in 10 fractions of 300 cGy each to each site. WEEKLY MONITORING This patient will require weekly monitoring in the form of on-treatment visits to assess for progression through treatment, ability to tolerate further treatment, and to assess for treatment-related side effects in order to manage them. CONSENT Consent has been obtained, and the patient is amenable to treatment. The risks and benefits of radiotherapy have been explained, and the patient is agreeable to proceed. A separate consent document has been filed. Bobby Manzanares MD Radiation Oncologist [place] [address] [place] [address] This report was generated using [employer] dictation.
[2018-11-30] MEDS: Insulin DETEMIR 100 UNIT/ML X5UNITS SQ SCH (21:37)
--- NOTE | 2018-11-30 22:15 | Internal Med Progress Note ---
Hospitalist Progress Note - Encounter Date of Encounter: 11/30/18 Time of Encounter: 19:00 - Subjective Interval History: SUBJECTIVE: The patient is a 48-year-old woman. 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 She developed a right pleural effusion. She got Pleurx right-sided catheter yesterday (thoracic surgery). She feels good. She does not have any significant pain. She is on nasal cannula oxygen. She has been bedbound recently. She received radiation oncology consult today. She will be getting radiation treatments for palliative care. OBJECTIVE: Skin: Free of rash and discoloration. ENMT: Oral/pharyngeal mucosa is normal in appearance. Eyes: Sclera is white. There is no discharge from eyes. Respiratory: Normal breath sounds; no crackles or wheezes. CV: Heart is regular; no gallop or murmur. GI: Abdomen is soft and not tender. There is no palpable mass or visceromegaly. Neuro: There is no focal deficits. ADDITIONAL DATA (from yesterday): CBC showed hemoglobin of 11.5 with a WBC of 16.0 thousand and normal platelet count. BMP is normal. ASSESSMENT AND PLAN: Adenocarcinoma of lung. Stage IV. With resolving pneumonia/COPD exacerbation. To continue supplemental oxygen with doxycycline and nebulizer treatments with DuoNeb. She will receive total of 14 days of doxycycline. Waiting for hospice service to be ready to get her for outpatient treatment. I requested a hospital bed, as she requires frequent repositioning due to her underlying COPD. Type 2 diabetes mellitus has/hypertension. She is on Levemir and when necessary Humalog. She gets Lopressor and Zestril. DISPOSITION: Tentative discharge is sometime tomorrow afternoon(when her hospital bed is available). - Exam Vitals: Temp Pulse Resp BP Pulse Ox 97.7 F 84 18 112/69 94 11/30/18 19:27 11/30/18 19:27 11/30/18 19:27 11/30/18 19:27 11/30/18 19:27 Exam: xx - Assessment and Plan (1) Adenocarcinoma of lung Current Visit: Yes Status: Acute (2) Pleural effusion exudative Current Visit: Yes Status: Acute (3) Pneumonia Current Visit: Yes Status: Acute (4) COPD with exacerbation Current Visit: Yes Status: Acute (5) Acute and chronic respiratory failure Current Visit: Yes Status: Resolved (6) Diabetes Current Visit: No Status: Chronic (7) Hypertension Current Visit: No Status: Chronic (8) Hypothyroidism Current Visit: No Status: Chronic - Time Spent with Patient Total time spent is greater than 50% in coordination of care (as documented) at patient's floor/unit and/or counseling patient: 25 - 35 minutes Plan of Care Discussed with: patient Internal Medicine: Result - Labs CBC & Chem 7: 11/29/18 06:15 11/29/18 06:15 - ABG Interpretation ABG results: PT/INR, D-dimer PT 12.4 Seconds (9.4-12.1) H 11/26/18 08:26 Consult Discharge Plan - Plan Referrals: [facility] [Other] - 11/30/18 9:00 am (Please follow up as scheduled, per Cancer center) Parviz Rodriguez MD [Partnered Physician] - 12/14/18 11:20 am (Please follow up as schedule...) Mick Langford MD [Primary Care Provider] - 12/07/18 10:00 am (Please follow up as schedule....) (1) Adenocarcinoma of lung Qualifiers: Laterality: right Qualified Code(s): C34.91 - Malignant neoplasm of unspecified part of right bronchus or lung (3) Pneumonia Qualifiers: Pneumonia type: due to unspecified organism Laterality: right Lung location: unspecified part of lung Qualified Code(s): J18.9 - Pneumonia, unspecified organism (5) Acute and chronic respiratory failure Qualifiers: Respiratory failure complication: hypoxia Qualified Code(s): J96.21 - Acute and chronic respiratory failure with hypoxia (6) Diabetes Qualifiers: Diabetes mellitus type: type 2 Diabetes mellitus terminal operations supervisor insulin use: without terminal operations supervisor use Diabetes mellitus complication status: without complication Qualified Code(s): E11.9 - Type 2 diabetes mellitus without complications (7) Hypertension Qualifiers: Hypertension type: essential hypertension Qualified Code(s): I10 - Essential (primary) hypertension (8) Hypothyroidism Qualifiers: Hypothyroidism type: unspecified Qualified Code(s): E03.9 - Hypothyroidism, unspecified
[2018-12-01] MEDS: Ipratropium/Albuterol Neb 3 ML IH SCH ×3 (04:48→16:30)
[2018-12-01] MEDS: *HR* Heparin 5,000 UNIT/ML VIAL SQ SCH ×2 (04:56→17:21)
[2018-12-01] MEDS: *HR* Morphine Sulfate SR (12 HR) 15 MG TABLET.ER PO SCH ×2 (05:01→17:21)
[2018-12-01] MEDS: Lisinopril 20 MG TABLET PO SCH (09:12)
[2018-12-01] MEDS: Insulin LISPRO 300 UNITS/3 ML VIAL SQ SCH ×3 (09:12→16:50)
[2018-12-01] MEDS: ARIPiprazole 2 MG TABLET PO SCH (09:13)
[2018-12-01] MEDS ORDERED: Doxycycline 100 MG CAPSULE PO SCH (09:15)
[2018-12-01] MEDS: *HR* HYDROcodone/Acet 5/325 mg TABLET PO PRN ×2 (09:19→15:15)
--- NOTE | 2018-12-01 15:25 | Discharge Summary ---
Orders not resulted at time of discharge: Pending orders 11/21/18 XR fluoroscopy <1 hr [XR] Routine 11/21/18 13:24 AFB Culture, Respiratory [TB] Routine AFB Culture, Respiratory [TB] Routine AFB Smear [TB] Routine AFB Smear [TB] Routine Fungal Culture [MYC] Routine Fungal Culture [MYC] Routine Legionella Culture [RM] Routine Legionella Culture [RM] Routine 11/28/18 14:00 AFB Culture, Respiratory [TB] Routine AFB Smear [TB] Routine Culture,Respiratory [RM] Routine Fungal Culture [MYC] Routine Date of Encounter: 12/01/18 Time of Encounter: 15:21 - Discharge Diagnosis (1) Adenocarcinoma of lung Priority: Primary Status: Acute Qualifiers: Laterality: right Qualified Code(s): C34.91 - Malignant neoplasm of unspecified part of right bronchus or lung (2) Pleural effusion exudative Priority: Primary Status: Acute (3) Pneumonia Priority: Primary Status: Acute Qualifiers: Pneumonia type: due to unspecified organism Laterality: right Lung location: unspecified part of lung Qualified Code(s): J18.9 - Pneumonia, unspecified organism (4) COPD with exacerbation Priority: Primary Status: Acute (5) Acute and chronic respiratory failure Priority: Primary Status: Acute Qualifiers: Respiratory failure complication: hypoxia Qualified Code(s): J96.21 - Acute and chronic respiratory failure with hypoxia (6) Diabetes Priority: Secondary Status: Chronic Qualifiers: Diabetes mellitus type: type 2 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 She has underlying stage IV lung cancer (adenocarcinoma). Admitted with severe right-sided pleural effusion with pneumonia, COPD exacerbation and acute on chronic respiratory failure (with hypoxia). She got supplemental oxygen. She got antibiotics, steroids and nebulizer treatments with DuoNeb. Pleurx catheter was inserted. A large amount of fluid was drained from right pleural space. She has had multiple other problems including type 2 diabetes mellitus, hypertension and hypothyroidism. We requested hospice at home to be started. CONDITION AT DISCHARGE: Feels good. Her cancer associated pain is under control. Her breathing is not labored. She is using supplemental oxygen at 5 L/min nasal cannula. The patient is basically bedbound. She does transfers with assistance. Skin: Free of rash and discoloration. Respiratory: Normal breath sounds with no crackles and wheezes bilaterally. CV: Heart is regular with no gallop or murmur. GI: Abdomen is flat and soft with no palpable mass or visceromegaly. Neuro exam: There is no focal deficits. Normal speech, swallowing and gait. SEE DISCHARGE ORDERS/MEDICATIONS Discharge discussed with: patient, case management - Time Spent with Patient Total time spent providing and/or coordinating discharge services: Time spent: Greater than 30 minutes (45 minutes...) - Discharge Medications Prescriptions: New HYDROcodone/Acet 5/325 mg [[place] 5-325 mg] 1 tab PO Q6HR PRN #30 tablet PRN Reason: Pain Morphine Sulfate SR (12 HR) [MS Contin] 15 mg PO Q12HR 15 Days #30 tablet.er Doxycycline 100 mg PO BID 7 Days #14 capsule Ipratropium/Albuterol Neb [Duoneb] 3 ml IH QIDR inhsol Docusate [Colace] 100 mg PO BID PRN capsule PRN Reason: Constipation Continue Beclomethasone Dip 40mcg REDIH [Qvar 40 Mcg Redihaler] 1 puff IH BID Albuterol Sulfate [Ventolin Hfa] 2 puff IH Q4-6H PRN PRN Reason: Shortness Of Breath Lisinopril [Zestril] 20 mg PO DAILY Levothyroxine Sodium 75 mcg PO DAILY Escitalopram [Lexapro] 10 mg PO DAILY ARIPiprazole [Abilify] 2 mg PO DAILY Changed Albuterol Neb [Proventil Neb] 2.5 mg IH Q4HR PRN #0 PRN Reason: Wheezing Home Medications: ARIPiprazole [Abilify] 2 mg PO DAILY 11/20/18 [History] Albuterol Sulfate [Ventolin Hfa] 2 puff IH Q4-6H PRN 11/20/18 [History] Beclomethasone Dip 40mcg REDIH [Qvar 40 Mcg Redihaler] 1 puff IH BID 11/20/18 [History] Escitalopram [Lexapro] 10 mg PO DAILY 11/20/18 [History] Levothyroxine Sodium 75 mcg PO DAILY 11/20/18 [History] Lisinopril [Zestril] 20 mg PO DAILY 11/20/18 [History] Albuterol Neb [Proventil Neb] 2.5 mg IH Q4HR PRN #0 12/01/18 [Rx] Docusate [Colace] 100 mg PO BID PRN capsule 12/01/18 [Rx] Doxycycline 100 mg PO BID 7 Days #14 capsule 12/01/18 [Rx] HYDROcodone/Acet 5/325 mg [[place] 5-325 mg] 1 tab PO Q6HR PRN #30 tablet 12/01/18 [Rx] Ipratropium/Albuterol Neb [Duoneb] 3 ml IH QIDR inhsol 12/01/18 [Rx] Morphine Sulfate SR (12 HR) [MS Contin] 15 mg PO Q12HR 15 Days #30 tablet.er 12/01/18 [Rx] Allergies/Adverse Reactions: Allergy/AdvReac Type Severity Reaction Status Date / Time No Known Allergies Allergy Verified 11/20/18 15:57 Date of admission: 11/20/18 16:27 Primary care physician: Mick Langford MD Consults: 11/20/18 16:30 Consult to Pulmonology [CONS] Routine Consulting Provider: [facility] Reason for Consult: Postobstructive pneumonia/malignancy Time Notified: 16:31 Call Completed: Yes 11/20/18 16:32 Consult to Respiratory Therapy [CONS] Routine Reason for Consult: Acapella therapy Time Notified: 16:32 Call Completed: Yes 11/23/18 09:18 Consult to Nurse Navigator [CONS] Routine Comment: pc, copd 11/24/18 12:16 Consult to Oncology [CONS] Routine Consulting Provider: [facility] Reason for Consult: RUL mass with non small cell prelim read Time Notified: 12:15 Call Completed: Yes 11/24/18 13:17 Consult to Oncology [CONS] Routine Consulting Provider: [facility] Reason for Consult: non-small cell cancer Call Completed: Yes 11/25/18 10:09 Consult to Thoracic Surgery [CONS] Routine Consulting Provider: [facility] Reason for Consult: recurrent, likely malignant R pleural effusion. For PleurX catheter insertion, discussed with Dr. Rodriguez Call Completed: Yes 11/25/18 18:30 Consult to Pastoral Services [CONS] Routine Comment: new dx lung CA stg IV,would like to meet lesa. 11/26 Discharging clinician: Tom Marte Anticipated date of discharge: 12/01/18 - Constitutional Vitals: Temp Pulse Resp BP Pulse Ox 97.7 F 76 22 114/66 97 12/01/18 11:10 12/01/18 11:10 12/01/18 11:10 12/01/18 11:10 12/01/18 15:05 General appearance: Present: A&O X 3, no acute distress, answers questions appropriately Exam: xx - Patient Status Disposition: Hospice - Home Condition: Fair Functional capacity at discharge: wheelchair bound Overall status at discharge: other (Hospice patient; seems to be stable...) - Discharge Instructions Instructions: Doxycycline (By mouth), Using Oxygen at Home (DC) Follow Up With: [facility] [Other] (Please follow up as scheduled, per Cancer center) Parviz Rodriguez MD [Partnered Physician] - 12/14/18 11:20 am (Please follow up as schedule...) Mick Langford MD [Primary Care Provider] - 12/07/18 10:00 am (Please follow up as schedule....) Additional Instructions: PLEURX CATHETER IS INSERTED -- TO USE IT FOR DRAINAGE OF EXCESSIVE AMOUNTS OF PLEURAL FLUID... OXYGEN AT 5 L/MIN NC -- KEEP PULSE-OX AT LOW 9X-S... - Diet and Activity Activity: other (BED-BOUND/[id number]) Diet: advance to your usual diet
--- NOTE | 2018-12-01 15:50 | Physician Discharge Referral ---
Home Health/Hosp Referral Info Transfer to: Home Health Attending Provider: Tiff Marte MD Provider in Charge Post Discharge: Pigeon Fancier - Diagnosis (1) Adenocarcinoma of lung Priority: Primary Status: Acute (2) Pleural effusion exudative Priority: Primary Status: Acute (3) Pneumonia Priority: Primary Status: Acute (4) COPD with exacerbation Priority: Primary Status: Acute (5) Acute and chronic respiratory failure Priority: Primary Status: Acute (6) Diabetes Priority: Secondary Status: Chronic (7) Hypertension Priority: Secondary Status: Chronic (8) Hypothyroidism Priority: Secondary Status: Chronic - Respiratory Orders None Smoking Cessation: Smoking cessation has been advised. For more information, call the [place] Tobacco Quit Line at 4-160-XHFH-NOW. - Diet/Nutrition Diet/Nutrition Orders: Regular - Activity Activity Orders: Bedrest (and wheel-chair...) - Services Needed Following services are medically necessary services: Nursing, Home Health Aide - Transfer Medications Prescriptions: Doxycycline 100 mg PO BID 7 Days #14 capsule Home Medications: ARIPiprazole [Abilify] 2 mg PO DAILY 11/20/18 [History] Albuterol Sulfate [Ventolin Hfa] 2 puff IH Q4-6H PRN 11/20/18 [History] Beclomethasone Dip 40mcg REDIH [Qvar 40 Mcg Redihaler] 1 puff IH BID 11/20/18 [History] Escitalopram [Lexapro] 10 mg PO DAILY 11/20/18 [History] Levothyroxine Sodium 75 mcg PO DAILY 11/20/18 [History] Lisinopril [Zestril] 20 mg PO DAILY 11/20/18 [History] Albuterol Neb [Proventil Neb] 2.5 mg IH Q4HR PRN #0 12/01/18 [Rx] Docusate [Colace] 100 mg PO BID PRN capsule 12/01/18 [Rx] Doxycycline 100 mg PO BID 7 Days #14 capsule 12/01/18 [Rx] HYDROcodone/Acet 5/325 mg [[place] 5-325 mg] 1 tab PO Q6HR PRN #30 tablet 12/01/18 [Rx] Ipratropium/Albuterol Neb [Duoneb] 3 ml IH QIDR inhsol 12/01/18 [Rx] Morphine Sulfate SR (12 HR) [MS Contin] 15 mg PO Q12HR 15 Days #30 tablet.er 12/01/18 [Rx] Allergies/Adverse Reactions: Allergy/AdvReac Type Severity Reaction Status Date / Time No Known Allergies Allergy Verified 11/20/18 15:57 Certification: Further, I certify that my clinical findings support that this patient is homebound (i.e. absences from home require considerable and taxing effort and are for medical reasons or judaism services or infrequently or short duration when for other reasons) because: Homebound Reason: Patient requires assistance of a person or device to safely leave home Attestation: My signature below is to certify that this patient is under my care and that I, or nurse practitioner, or a physician's retail assistant working with me, has a face-to -face encounter with this patient.
[2018-12-01 16:21] VITALS: BP 114/74
--- NOTE | 2018-12-02 08:12 | Electrocardiograph Report ---
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
== END 2018-12-01 18:50 | disposition hospice, home (50) | DRG 136 ==
LOC: EMEROOARM 10:22 → 2ANU 10:22 → SUATTDRO 16:27 → 2ANU 16:29
PROVIDERS: ADMIT Internal Medicine; ATTEND Internal Medicine
PROC: ENDOLBX (2018-11-21 12:30)

== ENCOUNTER 2018-12-29 13:43 | Inpatient (IN) ==
[2018-12-29] MEDS ORDERED: 0.9 % Sodium Chloride 500 ML IVC ONE (13:53)
[2018-12-29] MEDS ORDERED: Ipratropium/Albuterol Neb 3 ML IH ONE (13:54)
[2018-12-29] MEDS ORDERED: methylPREDNISolone 125 MG/2 ML VIAL IVP ONE (13:55)
[2018-12-29] MEDS ORDERED: Isovue-370 500 ML BOTTLE IVP ONE (13:56)
--- NOTE | 2018-12-29 14:00 | Emergency Department Note ---
Disposition Clinical Impression: Pleural effusion Lung cancer Qualifiers: Laterality: unspecified laterality Lung location: unspecified part of lung Qualified Code(s): C34.90 - Malignant neoplasm of unspecified part of unspecified bronchus or lung COPD (chronic obstructive pulmonary disease) Qualifiers: COPD type: unspecified COPD Qualified Code(s): J44.9 - Chronic obstructive pulmonary disease, unspecified Constipation Qualifiers: Constipation type: unspecified constipation type Qualified Code(s): K59.00 - Constipation, unspecified Pneumonia Qualifiers: Pneumonia type: due to unspecified organism Laterality: right Lung location: unspecified part of lung Qualified Code(s): J18.9 - Pneumonia, unspecified organism Disposition: Admitted As Inpatient Condition: Fair SOB HPI - General Chief Complaint: ED Shortness of Breath/Dyspnea Stated Complaint: cori, poss bowel block Time Seen by Provider: 12/29/18 13:46 Source: patient, EMS Mode of arrival: EMS Limitations: no limitations Nursing Notes Reviewed: Yes Vital Signs Reviewed: Yes - History of Present Illness 48-year-old female with 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 Patient states that she developed dyspnea earlier today. Patient advised on 5 L nasal cannula and requiring nonrebreather in route via EMS. Patient denies any chest pain. Patient denies any cough or notable fevers. Patient is also concerned about a possible bowel obstruction she has not had any bowel movements for approximately 2 weeks. Patient denies any chest pain. Patient is still a full code. Patient's currently receiving radiation therapy with no chemotherapy. - Related Data Home Medications Medication Instructions Recorded Confirmed ARIPiprazole [Abilify] 2 mg PO DAILY 11/20/18 12/08/18 Albuterol Sulfate [Ventolin Hfa] 2 puff IH Q4-6H PRN 11/20/18 12/08/18 Beclomethasone Dip 40mcg REDIH 1 puff IH BID 11/20/18 12/08/18 [Qvar 40 Mcg Redihaler] Escitalopram [Lexapro] 10 mg PO DAILY 11/20/18 12/08/18 Levothyroxine Sodium 75 mcg PO DAILY 11/20/18 12/08/18 Lisinopril [Zestril] 20 mg PO DAILY 11/20/18 12/08/18 Previous Rx's Medication Instructions Recorded Albuterol Neb [Proventil Neb] 2.5 mg IH Q4HR PRN #0 12/01/18 Docusate [Colace] 100 mg PO BID PRN capsule 12/01/18 Ipratropium/Albuterol Neb [Duoneb] 3 ml IH QIDR inhsol 12/01/18 Omeprazole [PriLOSEC] 20 mg PO DAILY #30 cap 12/07/18 Ondansetron HCl 8 mg PO Q8HR PRN #60 tablet 12/07/18 HYDROcodone/Acet 5/325 mg [[place] 1 tab PO Q6HR PRN 30 Days #120 12/08/18 5-325 mg] tablet Morphine Sulfate SR (12 HR) [MS 15 mg PO Q12HR 30 Days #60 12/08/18 Contin] tablet.er Allergies Allergy/AdvReac Type Severity Reaction Status Date / Time No Known Allergies Allergy Verified 12/07/18 11:59 All systems ED: reviewed and negative except as stated. Constitutional: Denies: fever Cardiovascular: Denies: chest pain Respiratory: Reports: cough, dyspnea. Denies: sputum production Gastrointestinal: Reports: abdominal pain. Denies: nausea, vomiting Past Medical History - Past Medical History Source: patient Medical history: Reports: asthma, diabetes, hypertension, thyroid disease Surgical history: Reports: cholecystectomy, other Psychiatric history: Reports: no psych history - Social History Smoking Status: Current every day smoker Smokeless Tobacco Status: No Alcohol use: Reports: none Drug use: Reports: none Physical Exam - General Limitations: no limitations General appearance: other (Chronically ill and unwell with increased work of breathing) - Head Head exam: atraumatic, normocephalic, normal inspection - Eye Eye exam: Present: normal appearance, PERRL, EOMI - ENT ENT exam: normal exam - Neck Neck exam: Present: normal inspection - Chest Chest inspection: Present: normal inspection, symmetric chest wall rise, other (R sided pleurex drain with dressing) - Respiratory Respiratory exam: Present: respiratory distress, wheezes (faint), accessory muscle use, prolonged expiratory phase - Cardiovascular Cardiovascular exam: Present: regular rate. Absent: normal heart sounds - Abdominal Exam Abdominal exam: Present: soft, Non-Tender. Absent: guarding, rebound - Rectal Exam [employer] present during exam: Yes Rectal exam: Present: normal rectal tone, other (soft stool in the rectal vault evacuated.). Absent: heme (+) stool, black stool - Extremities Exam Extremities exam: Present: normal inspection. Absent: pedal edema - Expanded Lower Extremity Exam Neurovascular/Tendon exam: Present: normal capillary refill - Back Exam Back exam: Present: normal inspection - Neurological Exam Neurological exam: Present: alert - Skin Skin exam: Present: warm, dry, intact, normal color Course Course Narrative: Patient seen and examined. Patient does have increased work of breathing. Patient has an increasing rash requirement. Will obtain basic labs. Given the onset the patient's symptoms will obtain a CT Nancy chest. We will also get a CT the abdomen pelvis with concerns for obstruction setting of lung cancer. Patient will require noninvasive positive pressure ventilation. Patient will get extensive labs concerns for infection. Patient is a full code. - Reevaluation(s) Reevaluation #1: Patient seen and examined. Patient does have improvement in her respiratory status. Patient does have wheezing noted more on the left than the right. Prior history of pleural effusion. Time: 14:38 Reevaluation #2: Given the concern the patient's lung cancer with increasing oxygen requirement with findings of pleural effusion concerns of pneumonia and COPD exacerbation. Patient was started on antibiotics. CTA negative for PE. Does have chronic effusion. Patient's maintained well on BiPAP. Shows no signs of decompensation. Time: 17:29 Vital Signs Temperature 98.7 F 12/29/18 13:52 Pulse Rate 130 12/29/18 13:52 Respiratory Rate 17 12/29/18 13:52 Blood Pressure 151/102 12/29/18 13:52 O2 Sat by Pulse Oximetry 99 12/29/18 13:52 Temperature 98.7 F 12/29/18 13:52 Pulse Rate 114 12/29/18 15:22 Respiratory Rate 23 12/29/18 15:22 Blood Pressure 128/73 12/29/18 15:22 O2 Sat by Pulse Oximetry 94 12/29/18 15:22 Oxygen Delivery Oxygen Delivery Bipap Shortness of Breath/Dyspnea - MDM Narrative Medical decision making narrative: Patient Demi concerns of respiratory distress and shortness of breath. Patient required immediate BiPAP. Patient does have known lung CA. Patient received aerosols and steroids. Patient on exam improved. Does have chronic pleural effusion which appears slightly improved based on CT scan from prior evaluation. Given the onset of the patient's symptoms a CT PA study was obtained shows no evidence of PE. Patient respiratory distress with increasing Os[place] requirements prompted antibiotics and concerns for infection. Patient be covered for healthcare associated pneumonia given her high risk with the lung CA. Patient's labs show white count. Lactate normal. Patient will be admitted to the hospital service for continued respiratory support monitoring. Patient is also complaining of constipation. Patient CT scan does show iron consistent with constipation with no evidence of obstruction. On rectal exam some stool was evacuated patient will be given an enema. Patient's updated on plan of care. - Lab Data Lab results reviewed: Yes I reviewed the patient's lab results. Result diagrams: 12/29/18 14:33 12/29/18 14:33 Lab Results 12/29/18 12/29/18 12/29/18 Range/Units 14:33 14:33 14:33 WBC (4.3-11.1) K/mcL RBC (3.82-4.97) M/mcL Hgb (11.5-15.4) g/dL Hct (35.3-44.9) % MCV (83.0-100.0) fL MCH (28.0-33.3) pg MCHC (31.6-35.5) g/dL RDW (11.5-14.5) % Plt Count (140-400) K/mcL MPV (9.4-12.4) fL Seg Neutrophils % % Lymphocytes % % Monocytes % % Neutrophils # (1.6-8.9) K/mcL Lymphocytes # (0.6-4.6) K/mcL Monocytes # (0.0-1.3) K/mcL Nucleated RBCs/100 WBC (0) /100 WBC Platelet Estimate (Normal) PT 14.7 H (9.4-12.1) Seconds INR 1.3 Sample Site ABG pH (7.32-7.45) pH Units ABG pCO2 (35-45) mmHg ABG pO2 (85-104) mmHg ABG HCO3 (21-27) mEq/L ABG Total CO2 (20-26) mEq/L ABG O2 Saturation (95-98) % ABG Base Excess (-2 to 3) mEq/L Jose Test Respiration Rate O2 Delivery Device Inspired O2 (1-15=lpm [id number]=%) PEEP cm H2O Sodium (136-145) mEq/L Potassium (3.5-5.1) mEq/L Chloride (98-107) mEq/L Carbon Dioxide (23-29) mEq/L BUN (6-20) mg/dL Creatinine (0.60-1.20) mg/dL Est GFR ( Amer) (> 60) Est GFR (Non-Af Amer) (> 60) BUN/Creatinine Ratio (6-26) Glucose (70-105) mg/dL Calculated Osmolality (280-300) Lactic Acid (0.5-2.2) mmol/L Calcium (8.6-10.3) mg/dL Total Bilirubin 0.4 (0.3-1.0) mg/dL Direct Bilirubin 0.1 (0.0-0.2) mg/dL Indirect Bilirubin 0.3 (0.0-1.2) mg/dL AST 15 (13-39) Units/L ALT 11 (7-52) Units/L Alkaline Phosphatase 318 H (34-104) Units/L Troponin I (< 0.04) ng/mL B-Natriuretic Peptide 27 (Less than 100) pg/mL Serum Total Protein 6.5 (6.4-8.9) g/dL Albumin 2.7 L (3.5-5.7) g/dL Globulin 3.8 H (2.4-3.5) g/dL Albumin/Globulin Ratio 0.7 L (1.1-2.2) Urine Color (Yellow) Urine Clarity (Clear) Urine pH (5.0-8.0) pH Units Ur Specific [place] (1.010-1.025) Urine Protein (Neg-Trace) mg/dL Urine Glucose (UA) (Normal) mg/dL Urine Ketones (Negative) mg/dL Urine Blood (Negative) Urine Nitrite (Negative) Urine Bilirubin (Negative) Urine Urobilinogen (Normal) mg/dL Ur Leukocyte Esterase (Negative) Urine Microscopic RBC (0-3) per hpf Urine Microscopic WBC (0-3) per hpf Ur Squamous Epith Cells (None-Few) per lpf Urine Bacteria (None-Few) per hpf 12/29/18 12/29/18 12/29/18 Range/Units 14:33 14:33 14:33 WBC 15.0 H (4.3-11.1) K/mcL RBC 3.84 (3.82-4.97) M/mcL Hgb 9.9 L (11.5-15.4) g/dL Hct 33.8 L (35.3-44.9) % MCV 88.0 (83.0-100.0) fL MCH 25.8 L (28.0-33.3) pg MCHC 29.3 L (31.6-35.5) g/dL RDW 17.4 H (11.5-14.5) % Plt Count 350 (140-400) K/mcL MPV 10.0 (9.4-12.4) fL Seg Neutrophils % 88.0 % Lymphocytes % 4.0 % Monocytes % 8.0 % Neutrophils # 13.2 H (1.6-8.9) K/mcL Lymphocytes # 0.6 (0.6-4.6) K/mcL Monocytes # 1.2 (0.0-1.3) K/mcL Nucleated RBCs/100 WBC 0.7 H (0) /100 WBC Platelet Estimate Normal (Normal) PT (9.4-12.1) Seconds INR Sample Site ABG pH (7.32-7.45) pH Units ABG pCO2 (35-45) mmHg ABG pO2 (85-104) mmHg ABG HCO3 (21-27) mEq/L ABG Total CO2 (20-26) mEq/L ABG O2 Saturation (95-98) % ABG Base Excess (-2 to 3) mEq/L Jose Test Respiration Rate O2 Delivery Device Inspired O2 (1-15=lpm [id number]=%) PEEP cm H2O Sodium 140 (136-145) mEq/L Potassium 4.2 (3.5-5.1) mEq/L Chloride 93 L (98-107) mEq/L Carbon Dioxide 34 H (23-29) mEq/L BUN 13 (6-20) mg/dL Creatinine 0.41 L (0.60-1.20) mg/dL Est GFR ( Amer) > 60 (> 60) Est GFR (Non-Af Amer) > 60 (> 60) BUN/Creatinine Ratio 32 H (6-26) Glucose 126 H (70-105) mg/dL Calculated Osmolality 292 (280-300) Lactic Acid 1.2 (0.5-2.2) mmol/L Calcium 8.8 (8.6-10.3) mg/dL Total Bilirubin (0.3-1.0) mg/dL Direct Bilirubin (0.0-0.2) mg/dL Indirect Bilirubin (0.0-1.2) mg/dL AST (13-39) Units/L ALT (7-52) Units/L Alkaline Phosphatase (34-104) Units/L Troponin I < 0.03 (< 0.04) ng/mL B-Natriuretic Peptide (Less than 100) pg/mL Serum Total Protein (6.4-8.9) g/dL Albumin (3.5-5.7) g/dL Globulin (2.4-3.5) g/dL Albumin/Globulin Ratio (1.1-2.2) Urine Color (Yellow) Urine Clarity (Clear) Urine pH (5.0-8.0) pH Units Ur Specific [place] (1.010-1.025) Urine Protein (Neg-Trace) mg/dL Urine Glucose (UA) (Normal) mg/dL Urine Ketones (Negative) mg/dL Urine Blood (Negative) Urine Nitrite (Negative) Urine Bilirubin (Negative) Urine Urobilinogen (Normal) mg/dL Ur Leukocyte Esterase (Negative) Urine Microscopic RBC (0-3) per hpf Urine Microscopic WBC (0-3) per hpf Ur Squamous Epith Cells (None-Few) per lpf Urine Bacteria (None-Few) per hpf 12/29/18 12/29/18 Range/Units 15:21 17:15 WBC (4.3-11.1) K/mcL RBC (3.82-4.97) M/mcL Hgb (11.5-15.4) g/dL Hct (35.3-44.9) % MCV (83.0-100.0) fL MCH (28.0-33.3) pg MCHC (31.6-35.5) g/dL RDW (11.5-14.5) % Plt Count (140-400) K/mcL MPV (9.4-12.4) fL Seg Neutrophils % % Lymphocytes % % Monocytes % % Neutrophils # (1.6-8.9) K/mcL Lymphocytes # (0.6-4.6) K/mcL Monocytes # (0.0-1.3) K/mcL Nucleated RBCs/100 WBC (0) /100 WBC Platelet Estimate (Normal) PT (9.4-12.1) Seconds INR Sample Site L Radial ABG pH 7.44 (7.32-7.45) pH Units ABG pCO2 60 H (35-45) mmHg ABG pO2 69 L (85-104) mmHg ABG HCO3 41 H (21-27) mEq/L ABG Total CO2 43 H (20-26) mEq/L ABG O2 Saturation 93 L (95-98) % ABG Base Excess 14 H (-2 to 3) mEq/L Jose Test Positive Respiration Rate 8 O2 Delivery Device BiPAP Inspired O2 50.0 (1-15=lpm [id number]=%) PEEP 6 cm H2O Sodium (136-145) mEq/L Potassium (3.5-5.1) mEq/L Chloride (98-107) mEq/L Carbon Dioxide (23-29) mEq/L BUN (6-20) mg/dL Creatinine (0.60-1.20) mg/dL Est GFR ( Amer) (> 60) Est GFR (Non-Af Amer) (> 60) BUN/Creatinine Ratio (6-26) Glucose (70-105) mg/dL Calculated Osmolality (280-300) Lactic Acid (0.5-2.2) mmol/L Calcium (8.6-10.3) mg/dL Total Bilirubin (0.3-1.0) mg/dL Direct Bilirubin (0.0-0.2) mg/dL Indirect Bilirubin (0.0-1.2) mg/dL AST (13-39) Units/L ALT (7-52) Units/L Alkaline Phosphatase (34-104) Units/L Troponin I (< 0.04) ng/mL B-Natriuretic Peptide (Less than 100) pg/mL Serum Total Protein (6.4-8.9) g/dL Albumin (3.5-5.7) g/dL Globulin (2.4-3.5) g/dL Albumin/Globulin Ratio (1.1-2.2) Urine Color Yellow (Yellow) Urine Clarity Clear (Clear) Urine pH 7.0 (5.0-8.0) pH Units Ur Specific [place] 1.010 (1.010-1.025) Urine Protein Negative (Neg-Trace) mg/dL Urine Glucose (UA) Normal (Normal) mg/dL Urine Ketones Trace H (Negative) mg/dL Urine Blood Moderate H (Negative) Urine Nitrite Negative (Negative) Urine Bilirubin Negative (Negative) Urine Urobilinogen 2.0 H (Normal) mg/dL Ur Leukocyte Esterase Negative (Negative) Urine Microscopic RBC 0-3 (0-3) per hpf Urine Microscopic WBC 0-3 (0-3) per hpf Ur Squamous Epith Cells Many H (None-Few) per lpf Urine Bacteria None Seen (None-Few) per hpf - Radiology Data Radiology results reviewed: Yes I reviewed the patient's radiology results. Chest X-Ray 12/29/18 13:53 IMPRESSION: 1. Small-moderate right pleural effusion with extensive consolidation associated with the right lung neoplasm. Associated atelectasis. PleurX drain unchanged. 2. Left lung is well aerated. D/ / 12/29/2018 14:38:26 Ike Unger MD / juan Interpreting Provider: Ike Unger MD Abdomen/Pelvis CT 12/29/18 13:56 IMPRESSION: Chronic right pleural effusion with unchanged PleurX catheter positioning. Pleural effusion has decreased in size slightly since the prior exam, with corresponding mild improvement in right lung aeration. Heterogeneous enhancement within atelectatic right lung could reflect malignancy and/or infectious airspace disease. Features of disease progression include increased/new left lung nodularity and new mixed osteolytic/blastic skeletal lesions. Large colorectal stool volume without obstruction, suggesting constipation. D/ / 12/29/2018 16:49:19 Onur cope Interpreting Provider: Onur Gomez Chest CTA 12/29/18 13:56 IMPRESSION: Chronic right pleural effusion with unchanged PleurX catheter positioning. Pleural effusion has decreased in size slightly since the prior exam, with corresponding mild improvement in right lung aeration. Heterogeneous enhancement within atelectatic right lung could reflect malignancy and/or infectious airspace disease. Features of disease progression include increased/new left lung nodularity and new mixed osteolytic/blastic skeletal lesions. Large colorectal stool volume without obstruction, suggesting constipation. D/ / 12/29/2018 16:49:19 Onur cope Interpreting Provider: Onur Gomez - EKG Data EKG attestation: Yes I reviewed and interpreted this EKG. EKG shows normal: Reports: sinus rhythm Rate: Reports: tachycardia Rhythm: Reports: NSR [place]/QRS: Reports: normal T wave inversions noted in: Reports: aVR Interpretation: Reports: nonspecific ST-T wave changes S.B.ATiffanieRTiffanie - SRossy Situation: Demographics Background: Presenting Complaint Assessment: Vital Signs, Course and respsone to treatment, Patient/Family Expectation Recommendation: Barrier(s) to disposition, Recommendation based on pending studies, treatments, or consults S.B.A.Alta Report Given to: Dr. Rahat Doss Repor Time: 18:19 Attestation Statement - Attestation Attestation: Resident Attestation: I examined this patient and my medical decision making was reviewed with the Resident Physician. I agree with the documented findings, disposition and treatment plan as described except to the extent set forth below. We independently had [id number] contact with the patient. Patient history of pleural effusion with catheter in place not draining as well as it has in the past. Patient with associated decreased breath sounds and associated wheezing. Patient will undergo further evaluation for COPD exacerbation as well as pleural effusion and other potential competitions. Patient will likely require admission.
[2018-12-29 14:49] LABS: Hematocrit 33.8 % (35.3-44.9); Hemoglobin 9.9 g/dL (11.5-15.4); Mean Corpuscular HGB Conc 29.3 g/dL (31.6-35.5); Mean Corpuscular Hemoglobin 25.8 pg (28.0-33.3); Platelet Count 350 K/mcL (140-400); Red Blood Count 3.84 M/mcL (3.82-4.97); Red Cell Distribution Width 17.4 % (11.5-14.5)
[2018-12-29 14:50] LABS: Nucleated Red Blood Cells 0.7 /100 WBC (0)
[2018-12-29 14:57] LABS: INR 1.3; Prothrombin Time 14.7 Seconds (9.4-12.1)
[2018-12-29 15:27] LABS: ABG Base Excess 14 mEq/L (-2 to 3); ABG HCO3 41 mEq/L (21-27); ABG Oxygen Saturation 93 % (95-98); ABG PCO2 60 mmHg (35-45); ABG PH 7.44 pH Units (7.32-7.45); ABG PO2 69 mmHg (85-104); ABG TCO2 43 mEq/L (20-26); Blood Gas PEEP 6 cm H2O; Blood Gas Respiration Rate 8
[2018-12-29 15:28] LABS: BUN/Creatinine Ratio 32 (6-26); Blood Urea Nitrogen 13 mg/dL (6-20); Calcium 8.8 mg/dL (8.6-10.3); Carbon Dioxide 34 mEq/L (23-29); Chloride 93 mEq/L (98-107); Glucose 126 mg/dL (70-105); Osmolality,Calculated 292 (280-300); Potassium 4.2 mEq/L (3.5-5.1); Sodium 140 mEq/L (136-145); Troponin I < 0.03 ng/mL (< 0.04); eGFR For Non-African Americans > 60 (> 60)
[2018-12-29 15:29] LABS: Albumin 2.7 g/dL (3.5-5.7); Albumin/Globulin Ratio 0.7 (1.1-2.2); Bilirubin,Direct 0.1 mg/dL (0.0-0.2); Bilirubin,Indirect 0.3 mg/dL (0.0-1.2); Bilirubin,Total 0.4 mg/dL (0.3-1.0); Globulin 3.8 g/dL (2.4-3.5); Lymphocytes # 0.6 K/mcL (0.6-4.6); Monocytes # 1.2 K/mcL (0.0-1.3); Neutrophils # 13.2 K/mcL (1.6-8.9); Platelet Estimate Normal (Normal); Total Protein 6.5 g/dL (6.4-8.9)
--- NOTE | 2018-12-29 16:27 | Electrocardiograph Report ---
[place] 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
[2018-12-29] MEDS ORDERED: Milk and Molasses Enema 200 ML RC ONE (16:40)
[2018-12-29] MEDS ORDERED: Piperacillin/Tazobactam 3.375 GM in 0.9 % Sodium Chloride Mini Bag 100 ML IVPB ONE (17:22)
[2018-12-29 17:51] LABS: Bilirubin,Urine Negative (Negative); Blood,Urine Moderate (Negative); Clarity,Urine Clear (Clear); Glucose,Urine (UA) Normal (Normal); Ketones,Urine Trace mg/dL (Negative); Leukocyte Esterase,Urine Negative (Negative); Nitrite,Urine Negative (Negative); Protein,Urine Negative (Neg-Trace)
[2018-12-29 17:52] LABS: Color,Urine Yellow (Yellow)
[2018-12-29 18:00] LABS: Squamous Epithelial Cell,Urine Many per lpf (None-Few)
[2018-12-29 18:01] LABS: Bacteria,Urine None Seen per hpf (None-Few); RBC,Urine 0-3 per hpf (0-3); WBC,Urine 0-3 per hpf (0-3)
[2018-12-29] MEDS ORDERED: *HR* HYDROcodone/Acet 5/325 mg TABLET PO PRN (22:02)
--- NOTE | 2018-12-29 22:09 | Internal Med History&Physical ---
<Reji Kaur - Last Filed: 12/30/18 04:09> Date of Encounter: 12/30/18 Time of Encounter: 22:00 Internal Medicine - H&P: HPI Chief complaint: dyspnea History of present illness: Ms. 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 Patient was diagnosed with adenocarcinoma of the right lung earlier this year and now follows up with [facility] for her radiation appointment. This morning she went to Dr. White's office for her appointment and was found to have difficulty breathing. Patient also endorses 14 days of constipation. she was sent to the ER for further evaluation of her dyspnea and hypoxia. In the ED patient was on 8 L of oxygen mask. Labs showed patient was leukocytotic with a white blood count of 15, Hb: 9.9, Neutrophils : 13.2. Her A BG showed primary metabolic alkalosis with secondary respiratory acidosis . She also had a CTA which was negative for pulmonary embolism but showed chronic right pleural effusion. Patient has a Pleurx catheter on the right side of her chest which was put on 11/26/2018 There was also evidence for heterogenous enhancement within atelectatic right lung suggestive of malignancy/infectious disease. She was put on vancomycin and Zosyn in the ED and was given Solu- Medrol. She was admitted to the floor for further management Past Med Surg Social Fam HX - Past Medical History Medical history: asthma, cancer, diabetes, hypertension, thyroid disease Additional medical history: Endometriosis. DDD Psychiatric history: no psych history - Past Surgical History Surgical History: cholecystectomy, other Additional surgical history: Tonsilectomy. One filopian tube and ovary removed - Social History Smoking Status: Former smoker Smokeless Tobacco Status: No Alcohol use: none Drug use: none - Family History Mother Adopted: Yes Family Member Ethnicity: Non- Living Status: Still Living Hx Family Cardiac Disorders: Yes (hypertension) Hx Family Endocrine Disorder: Yes (diabetes) Father Adopted: No Family Member Ethnicity: Non- Living Status: Hx Family Cardiac Disorders: Yes (hypertension, heart disease unspecified) Hx Family Cancer: Yes (kidney) Hx Family Endocrine Disorder: Yes (diabetes) Internal Medicine - H&P: Meds ARIPiprazole [Abilify] 2 mg PO DAILY 11/20/18 [History] Albuterol Sulfate [Ventolin Hfa] 2 puff IH Q4-6H PRN 11/20/18 [History] Beclomethasone Dip 40mcg REDIH [Qvar 40 Mcg Redihaler] 1 puff IH BID 11/20/18 [History] Escitalopram [Lexapro] 10 mg PO DAILY 11/20/18 [History] Levothyroxine Sodium 75 mcg PO DAILY 11/20/18 [History] Lisinopril [Zestril] 20 mg PO DAILY 11/20/18 [History] Albuterol Neb [Proventil Neb] 2.5 mg IH Q4HR PRN #0 12/01/18 [Rx] Docusate [Colace] 100 mg PO BID PRN capsule 12/01/18 [Rx] Ipratropium/Albuterol Neb [Duoneb] 3 ml IH QIDR inhsol 12/01/18 [Rx] Omeprazole [PriLOSEC] 20 mg PO DAILY #30 cap 12/07/18 [Rx] Ondansetron HCl 8 mg PO Q8HR PRN #60 tablet 12/07/18 [Rx] HYDROcodone/Acet 5/325 mg [[place] 5-325 mg] 1 tab PO Q6HR PRN 30 Days #120 tablet 12/08/18 [Rx] Morphine Sulfate SR (12 HR) [MS Contin] 15 mg PO Q12HR 30 Days #60 tablet.er 12/08/18 [Rx] Allergy/AdvReac Type Severity Reaction Status Date / Time No Known Allergies Allergy Verified 12/07/18 11:59 All Systems PM: A 10-system review of systems was performed and is negative for pertinent findings except as documented above in the HPI. - Constitutional Constitutional: no fever(s) - Cardiovascular Cardiovascular ROS IM: no chest pain - Respiratory Respiratory: dyspnea - Gastrointestinal Gastrointestinal: no abdominal pain - Neurological Neurological ROS: no lack of coordination - Constitutional Vitals: Temp Pulse Resp BP Pulse Ox 98.7 F 116 29 129/91 98 12/29/18 13:52 12/29/18 18:56 12/29/18 19:29 12/29/18 18:56 12/29/18 19:29 Exam: Gen.: Vitals noted. No acute distress. Alert, awake and oriented * [address], [address], and time, well developed, well-nourished resting comfortably in bed. Pleasant. HEENT: oropharynx clear, Normocephalic, atraumatic, MMM Neck: supple, no JVD, no lymphadenopathy, no carotid bruit. Cardiac: RRR, no murmur, +S1/S2, No BLE edema, PMI non-displaced Pulmonary: faint wheezes, decreased breath sounds in the R lung, Right sided pleurx drain with dressing no rales or rhonchi, equal chest expansion, unlabored breathing Abdomen: soft, nontender, BS noted, no guarding, mildly distended. No organo megaly, no pulsatile masses, Skin: warm and dry, no visible lesions. Feels warm, clammy, no rashes, no lesions, no erythema MSK: ROM not assessed. no joint swelling noted, gait not assessed while in bed. Non tender calf or clubbing, no cyanosis/clubbing/ or edema Neuro: A&O, moves all extremities, no focal deficits, sensation intact Psych: Appropriate mood and behavior, normal speech. . Internal Med - H&P Results - Labs CBC & Chem 7: 12/29/18 14:33 12/29/18 14:33 Labs: Short CBC 12/29/18 Range/Units 14:33 WBC 15.0 H (4.3-11.1) K/mcL Hgb 9.9 L (11.5-15.4) g/dL Hct 33.8 L (35.3-44.9) % Plt Count 350 (140-400) K/mcL Neutrophils # 13.2 H (1.6-8.9) K/mcL BMP 12/29/18 14:33 Sodium 140 Potassium 4.2 Chloride 93 L Carbon Dioxide 34 H BUN 13 Creatinine 0.41 L Glucose 126 H Calcium 8.8 Cardiac Enzymes 12/29/18 Range/Units 14:33 Troponin I < 0.03 (< 0.04) ng/mL Liver Function 12/29/18 Range/Units 14:33 Total Bilirubin 0.4 (0.3-1.0) mg/dL Direct Bilirubin 0.1 (0.0-0.2) mg/dL AST 15 (13-39) Units/L ALT 11 (7-52) Units/L Alkaline Phosphatase 318 H (34-104) Units/L Albumin 2.7 L (3.5-5.7) g/dL Urine 12/29/18 Range/Units 17:15 Urine Color Yellow (Yellow) Urine Clarity Clear (Clear) Urine pH 7.0 (5.0-8.0) pH Units Ur Specific [place] 1.010 (1.010-1.025) Urine Protein Negative (Neg-Trace) mg/dL Urine Glucose (UA) Normal (Normal) mg/dL - ABG Interpretation ABG results: 12/29/18 15:21 ABG pH 7.44 ABG pCO2 60 H ABG pO2 69 L ABG HCO3 41 H ABG Total CO2 43 H ABG O2 Saturation 93 L ABG Base Excess 14 H - Impressions ITS Impressions Chest X-Ray 12/29/18 13:53 IMPRESSION: 1. Small-moderate right pleural effusion with extensive consolidation associated with the right lung neoplasm. Associated atelectasis. PleurX drain unchanged. 2. Left lung is well aerated. D/ / 12/29/2018 14:38:26 Ike Unger MD / juan Interpreting Provider: Ike Unger MD Abdomen/Pelvis CT 12/29/18 13:56 IMPRESSION: Chronic right pleural effusion with unchanged PleurX catheter positioning. Pleural effusion has decreased in size slightly since the prior exam, with corresponding mild improvement in right lung aeration. Heterogeneous enhancement within atelectatic right lung could reflect malignancy and/or infectious airspace disease. Features of disease progression include increased/new left lung nodularity and new mixed osteolytic/blastic skeletal lesions. Large colorectal stool volume without obstruction, suggesting constipation. D/ / 12/29/2018 16:49:19 Onur Gomez / anatoliy Interpreting Provider: Onur Gomez Chest CTA 12/29/18 13:56 IMPRESSION: Chronic right pleural effusion with unchanged PleurX catheter positioning. Pleural effusion has decreased in size slightly since the prior exam, with corresponding mild improvement in right lung aeration. Heterogeneous enhancement within atelectatic right lung could reflect malignancy and/or infectious airspace disease. Features of disease progression include increased/new left lung nodularity and new mixed osteolytic/blastic skeletal lesions. Large colorectal stool volume without obstruction, suggesting constipation. D/ / 12/29/2018 16:49:19 Onur Gomez / anatoliy Interpreting Provider: Onur Gomez - Assessment and Plan (1) Adenocarcinoma of lung Current Visit: No Status: Acute Assessment and plan: -patient's CTS frp, 11/24/18 showed right pleural effusion with complete opacification of the right upper lobe with truncation of the right upper lobe bronchus, multifocal new noncalcified pulmonary nodules, Lytic lesion in the T11 superior endplate, concerning for metastatic disease. -Thoracentesis 11/21/18 with 1200mL of clear yellow fluid removed. Cytology reveals metastatic adenocarcinoma. cytokeratin 7 and TTF-1 positive, negative for Napsin-A -11/26/2018: Right Pleurx catheter placement -11/28/2018: Bronchoscopy -Patient completed palliative radiotherapy to her right lung and whole brain (leptomeningeal disease and clival metastasis) Qualifiers: Laterality: right Qualified Code(s): C34.91 - Malignant neoplasm of unspecified part of right bronchus or lung (2) COPD (chronic obstructive pulmonary disease) Current Visit: Yes Status: Acute Assessment and plan: -Patient has a COPD - on this admission does not appear to be in COPD exacerbation with no change in the frequency of cough ir change in the color of sputum - ordered duonebs PRN, steroids Qualifiers: COPD type: unspecified COPD Qualified Code(s): J44.9 - Chronic obstructive pulmonary disease, unspecified (3) Pleural effusion Current Visit: Yes Status: Acute Assessment and plan: -Patient's CTA showed right sided pleural effusion, which has decreased in size slightly since the prior exam. Effusion is likely due to her primary cancer of right upper lobe lung -Patient has had multiple pleural effusions in the past, underwent thoracentesis in the past - She is s/p catheter placement on 11/26/2018. - will consult cardiothoracic surgery if needed (4) Pneumonia Current Visit: Yes Status: Acute Assessment and plan: -Patient's CTA showed heterogenous enhancement within atelectatic R lung suggestive of infectious airpace disease -During admission patient's white blood count is 15,neutrophils :13.2, afebrile in the ED and on the floor - Currently she's on 8L oxymask which is much higher than her baseline O@ requirement -Owing to her recent hospitalizations, patient is being treated for healthcare associated pneumonia. Therefore she will be on vancomycin and Zosyn. - Continue to monitor Qualifiers: Pneumonia type: due to unspecified organism Laterality: right Lung l ocation: unspecified part of lung Qualified Code(s): J18.9 - Pneumonia, unspecified organism (5) Type 2 diabetes mellitus Current Visit: Yes Status: Acute Assessment and plan: Patient has a history of type 2 diabetes mellitus. -Her glucose is stable at 126 on admission -We will put her on sliding scale insulin if her glucose elevates Qualifiers: Qualified Code(s): E11.9 - Type 2 diabetes mellitus without complications (6) Goals of care, counseling/discussion Current Visit: Yes Status: Acute Assessment and plan: - Goals of care were discussed with the patient. Patient was explained about the prognosis of her current situation. She tells me that she does not want any intubations done on her if she desaturates despite being on the BiPAP. She expresses the desire to be transitioned from FULL CODE to DO NOT RESUSCITATE, and the terms were clearly explained to her . She also wants home hospice. Consult to palliative care has been made (7) Hypothyroidism Current Visit: No Status: Chronic Assessment and plan: -Patient has a history of hypothyroidism -Continue home levothyroxin Qualifiers: Hypothyroidism type: unspecified Qualified Code(s): E03.9 - Hypothyroidism, unspecified (8) DVT prophylaxis Current Visit: No Status: Acute Assessment and plan: on SQ heparin - Time Spent With Patient Total time spent is greater than 50% in coordination of care (as documented) at patient's floor/unit and/or counseling patient: <Parviz Munoz - Last Filed: 12/30/18 07:21> Date of Encounter: 12/30/18 Internal Medicine - H&P: HPI History of present illness: Ms. Reis is a 48 year old female All Systems PM: A 10-system review of systems was performed and is negative for pertinent findings except as documented above in the HPI. - Constitutional Vitals: Temp Pulse Resp BP Pulse Ox 97.9 F 87 18 120/75 92 12/30/18 04:45 12/30/18 04:45 12/30/18 04:45 12/30/18 04:45 12/30/18 04:45 Internal Med - H&P Results - Labs CBC & Chem 7: 12/29/18 14:33 12/29/18 14:33 Labs: Short CBC 12/29/18 Range/Units 14:33 WBC 15.0 H (4.3-11.1) K/mcL Hgb 9.9 L (11.5-15.4) g/dL Hct 33.8 L (35.3-44.9) % Plt Count 350 (140-400) K/mcL Neutrophils # 13.2 H (1.6-8.9) K/mcL BMP 12/29/18 14:33 Sodium 140 Potassium 4.2 Chloride 93 L Carbon Dioxide 34 H BUN 13 Creatinine 0.41 L Glucose 126 H Calcium 8.8 Cardiac Enzymes 12/29/18 Range/Units 14:33 Troponin I < 0.03 (< 0.04) ng/mL Liver Function 12/29/18 Range/Units 14:33 Total Bilirubin 0.4 (0.3-1.0) mg/dL Direct Bilirubin 0.1 (0.0-0.2) mg/dL AST 15 (13-39) Units/L ALT 11 (7-52) Units/L Alkaline Phosphatase 318 H (34-104) Units/L Albumin 2.7 L (3.5-5.7) g/dL Urine 12/29/18 Range/Units 17:15 Urine Color Yellow (Yellow) Urine Clarity Clear (Clear) Urine pH 7.0 (5.0-8.0) pH Units Ur Specific [place] 1.010 (1.010-1.025) Urine Protein Negative (Neg-Trace) mg/dL Urine Glucose (UA) Normal (Normal) mg/dL - ABG Interpretation ABG results: 12/29/18 15:21 ABG pH 7.44 ABG pCO2 60 H ABG pO2 69 L ABG HCO3 41 H ABG Total CO2 43 H ABG O2 Saturation 93 L ABG Base Excess 14 H - Impressions ITS Impressions Chest X-Ray 12/29/18 13:53 IMPRESSION: 1. Small-moderate right pleural effusion with extensive consolidation associated with the right lung neoplasm. Associated atelectasis. PleurX drain unchanged. 2. Left lung is well aerated. D/ / 12/29/2018 14:38:26 Ike Unger MD / juan Interpreting Provider: Ike Unger MD Abdomen/Pelvis CT 12/29/18 13:56 IMPRESSION: Chronic right pleural effusion with unchanged PleurX catheter positioning. Pleural effusion has decreased in size slightly since the prior exam, with corresponding mild improvement in right lung aeration. Heterogeneous enhancement within atelectatic right lung could reflect malignancy and/or infectious airspace disease. Features of disease progression include increased/new left lung nodularity and new mixed osteolytic/blastic skeletal lesions. Large colorectal stool volume without obstruction, suggesting constipation. D/ / 12/29/2018 16:49:19 Onur cope Interpreting Provider: Onur Gomez Chest CTA 12/29/18 13:56 IMPRESSION: Chronic right pleural effusion with unchanged PleurX catheter positioning. Pleural effusion has decreased in size slightly since the prior exam, with corresponding mild improvement in right lung aeration. Heterogeneous enhancement within atelectatic right lung could reflect malignancy and/or infectious airspace disease. Features of disease progression include increased/new left lung nodularity and new mixed osteolytic/blastic skeletal lesions. Large colorectal stool volume without obstruction, suggesting constipation. D/ / 12/29/2018 16:49:19 Onur cope Interpreting Provider: Onur Gomez - Time Spent With Patient Total time spent is greater than 50% in coordination of care (as documented) at patient's floor/unit and/or counseling patient: - Attending Attestation I saw and evaluated the patient. I reviewed the residents note, performed my own physical examination and agree with findings and plan as documented in the residents note. Patient seen and examined on 12/29/18. Patient admitted for hypoxic respiratory failure, likely secondary to malignant effusion. Patient has a drain placed for this as well. Also possible pneumonia, now on antibiotics. Continue to monitor. Patient was also apparently suppose to be transitioned to hospice care, therefore palliative care has been consulted. Patient has long history of metastatic cancer, was at oncology appointment prior to admission, and hospice was discussed.
[2018-12-29] MEDS ORDERED: Ipratropium/Albuterol Neb 3 ML IH PRN (23:00)
[2018-12-29] MEDS: Ipratropium/Albuterol Neb 3 ML IH SCH (23:48)
[2018-12-30] MEDS: *HR* Morphine Sulfate SR (12 HR) 15 MG TABLET.ER PO SCH ×2 (00:07→12:02)
[2018-12-30] MEDS ORDERED: *HR* Dextrose 50 % in Water (Syg) 50 ML SYRINGE IVP PRN (00:13)
[2018-12-30] MEDS ORDERED: Dextrose Gel 15 GM/37.5 ML TUBE PO PRN ×2 (00:13)
[2018-12-30] MEDS ORDERED: D5% in Water 1,000 ML IVC PRN (00:13)
[2018-12-30] MEDS ORDERED: Vancomycin 1,750 MG in 0.9 % Sodium Chloride 250 ML IVPB SCH (01:00)
[2018-12-30] MEDS: Piperacillin/Tazobactam 3.375 GM in 0.9 % Sodium Chloride Mini Bag 100 ML IVPB SCH ×3 (02:39→16:36)
[2018-12-30] MEDS: Ipratropium/Albuterol Neb 3 ML IH SCH ×6 (03:39→23:27)
[2018-12-30] MEDS: *HR* Heparin 5,000 UNIT/ML VIAL SQ SCH ×2 (05:56→16:35)
[2018-12-30] MEDS ORDERED: *HR* Morphine Sulfate SR (12 HR) 15 MG TABLET.ER PO SCH (06:00)
[2018-12-30] MEDS: Insulin LISPRO 300 UNITS/3 ML VIAL SQ SCH ×4 (09:06→21:56)
[2018-12-30] MEDS ORDERED: Methylnaltrexone 12 MG/0.6 ML SYRINGE SQ ONE (11:01)
--- NOTE | 2018-12-30 11:38 | Palliative - Consult Note ---
Date of Encounter: 12/30/18 Time of Encounter: 11:55 - Assessment and Plan (1) Cancer associated pain Current Visit: No Status: Acute Assessment and plan: Patient states that her [place] has not been very effective lately for her b reakthrough pain, and she is starting to have difficulty swallowing some pills. Will transition to SL Roxanol 5mg PRN and titrate as needed. (2) Therapeutic opioid-induced constipation (OIC) Current Visit: Yes Status: Acute Assessment and plan: Patient may have opioid induced constipation not resolved with oral laxatives and little results with Milk of Molasses enema yesterday. Will try Relistor SQ today and see if this gives her results. Will need more aggressive bowel regimen once resolved. Will continue Miralax as she takes at home, and add Senokot 2 tabs BID with Lactulose PRN. (3) Anxiety Current Visit: Yes Status: Acute Assessment and plan: Patient reports that anxiety is worse and feels she needs medication for this. Will begin Lorazepam 0.5 every 6 hours and monitor (4) Dyspnea Current Visit: No Status: Acute Assessment and plan: Pleurx cath to be drained today. Utilizing high flow oxygen currently at 8LPM. She tolerates bipap well PRN. She is having difficulty swallowing [place] - will transition to Roxanol which may assist in the management of her dyspnea as well. Qualifiers: Dyspnea type: unspecified Qualified Code(s): R06.00 - Dyspnea, unspecified (5) Advance care planning Current Visit: Yes Status: Acute Assessment and plan: Met with patient, her sister Amparo and mother Shiela. Discussed goals of care and advanced care planning. Patient lives with sister, however, she is working multiple jobs and unable to care for her around the clock. Other family members not available and her mother in wheelchair. Discussed safety of being alone, as patients functional status declining and she is primarily bedbound. Patient expressed understanding and desires to go to [facility] upon discharge. She still would desire [place] [facility] to participate in her care as well. We also discussed advanced directives, as pt not and has no children, and she completed healthcare POA naming sister Amparo as primary annd mother Shiela as alternate. Copy placed on medical record and provided to family. Discussed pt plan of care with Jarad DAVIDSON, pt primary nurse, and Dr. Rodriguez. Referral called to [facility]. Will continue to work on constipation and other symptoms today. If bed available and accepted at [facility], could likely be discharged tomorrow. (6) Palliative care encounter Current Visit: Yes Status: Acute Assessment and plan: Total time spent with patient, coordination of care and counseling 75 min. (7) Asthma exacerbation with COPD (chronic obstructive pulmonary disease) Current Visit: No Status: Acute (8) Pneumonia Current Visit: Yes Status: Acute Qualifiers: Pneumonia type: due to unspecified organism Laterality: right Lung location: unspecified part of lung Qualified Code(s): J18.9 - Pneumonia, unspecified organism (9) Pleural effusion Current Visit: Yes Status: Acute Palliative-CN HPI - Data of Consult Requesting Physician: Etienne Rodriguez Primary Care Provider: Mick Langford MD - Consult Narrative History of present illness: Ms. 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 White. Patient was seen earlier that day by oncology, and EMS brought her back for worsening shortness of breath. Dr. White did speak with patient at that time,, and she expressed desire for no further aggressive cancer treatment, and desired to be enrolled in hospice care. She has had worsening shortness of breath, pain, and severe constipation for the last 14 days at home. She was admitted for management of symptoms and then eventual transition to hospice care. She has pertinent medical history for: hypertension, hypothyroidism,COPD, and diabetes. In the ED patient was on 8 L of oxygen mask. Labs showed patient was leukocytotic with a white blood count of 15, Hb: 9.9, Neutrophils : 13.2. . She also had a CTA which was negative for pulmonary embolism but showed chronic right pleural effusion. Patient has a Pleurx catheter on the right side of her chest which was put on 11/26/2018. There was also evidence for heterogenous enhancement within atelectatic right lung suggestive of malignancy/infectious disease. She was put on vancomycin and Zosyn in the ED and was given Solu-Me drol. Upon my visit, patient is awake, alert,, talkative. C/o anxiety and worsening chest discomfort. States constipation is severe, and at home had tried Miralax, stool softeners, suppositories without success. C/o rectal discomfort r/t straining. Sister and mother are at the bedside. I CC: Etienne Rodriguez - Time Spent with Patient Time: Total time spent is greater than 50% in coordination of care (as documented) at patient's floor/unit and/or counseling patient: Past Med Surg Social Fam HX - Past Medical History Medical history: asthma, cancer, diabetes, hypertension, thyroid disease Additional medical history: Endometriosis. DDD Psychiatric history: no psych history - Past Surgical History Surgical History: cholecystectomy, other Additional surgical history: Tonsilectomy. One filopian tube and ovary removed - Social History Smoking Status: Former smoker Smokeless Tobacco Status: No Alcohol use: none Drug use: none - Family History Mother Adopted: Yes Family Member Ethnicity: Non- Living Status: Still Living Hx Family Cardiac Disorders: Yes (hypertension) Hx Family Endocrine Disorder: Yes (diabetes) Father Adopted: No Family Member Ethnicity: Non- Living Status: Hx Family Cardiac Disorders: Yes (hypertension, heart disease unspecified) Hx Family Cancer: Yes (kidney) Hx Family Endocrine Disorder: Yes (diabetes) Medications and Allergies ARIPiprazole [Abilify] 2 mg PO DAILY 11/20/18 [History] Albuterol Sulfate [Ventolin Hfa] 2 puff IH Q4H PRN 11/20/18 [History] Beclomethasone Dip 40mcg REDIH [Qvar 40 Mcg Redihaler] 1 puff IH BID 11/20/18 [History] Escitalopram [Lexapro] 10 mg PO DAILY 11/20/18 [History] Levothyroxine Sodium 75 mcg PO QAM 11/20/18 [History] Lisinopril [Zestril] 20 mg PO DAILY 11/20/18 [History] Omeprazole [PriLOSEC] 20 mg PO DAILY #30 cap 12/07/18 [Rx] Ondansetron HCl 8 mg PO Q8HR PRN #60 tablet 12/07/18 [Rx] HYDROcodone/Acet 5/325 mg [[place] 5-325 mg] 1 tab PO Q6HR PRN 30 Days #120 tablet 12/08/18 [Rx] Cetirizine HCl [24Hour Allergy] 10 mg PO DAILY 12/30/18 [History] Docusate Sodium [Stool Softener] 100 mg PO TID 12/30/18 [History] Ipratropium/Albuterol Sulfate [Iprat-Albut 0.5-3(2.5) mg/3 ml] 3 ml IH Q6H PRN 12/30/18 [History] Morphine Sulfate [Arymo ER] 15 mg PO Q12H 12/30/18 [History] Polyethylene Glycol 3350 [MiraLax bowel prep] 17 gm PO DAILY 12/30/18 [History] Allergy/AdvReac Type Severity Reaction Status Date / Time No Known Allergies Allergy Verified 12/30/18 09:13 All systems: reviewed and no additional remarkable complaints except as stated (constipation, shortness of breath, chest pain, anxiety, poor appetite, weakness) Palliative Care-Exam - Constitutional Vitals: Temp Pulse Resp BP Pulse Ox 97.4 F L 97 16 126/74 96 12/30/18 07:32 12/30/18 07:32 12/30/18 07:32 12/30/18 07:32 12/30/18 09:16 General appearance: Present: mild distress - Head Head Exam: Present: normal inspection, normocephalic - Eye Eye exam: Present: normal appearance, PERRL - Respiratory Additional comments: Breath sounds diminished bilaterally - Cardiovascular Cardiovascular exam: Present: +S1, +S2 - GI/Abdominal Exam GI/Abdominal exam: Present: distended, hyperactive bowel sounds, soft - Extremities Exam Extremities exam: Present: normal capillary refill, normal inspection - Neurological Exam Neurological exam: Present: alert, oriented X3, strengths equal and symetr throughout - Psychiatric Psychiatric exam: Present: anxious - Skin Skin exam: Present: dry, pallor, warm Internal Medicine - CN: Reslt - Labs CBC & Chem 7: 12/29/18 14:33 12/29/18 14:33 Labs: Short CBC 12/29/18 Range/Units 14:33 WBC 15.0 H (4.3-11.1) K/mcL Hgb 9.9 L (11.5-15.4) g/dL Hct 33.8 L (35.3-44.9) % Plt Count 350 (140-400) K/mcL Neutrophils # 13.2 H (1.6-8.9) K/mcL BMP 12/29/18 14:33 Sodium 140 Potassium 4.2 Chloride 93 L Carbon Dioxide 34 H BUN 13 Creatinine 0.41 L Glucose 126 H Calcium 8.8 Cardiac Enzymes 12/29/18 Range/Units 14:33 Troponin I < 0.03 (< 0.04) ng/mL Liver Function 12/29/18 Range/Units 14:33 Total Bilirubin 0.4 (0.3-1.0) mg/dL Direct Bilirubin 0.1 (0.0-0.2) mg/dL AST 15 (13-39) Units/L ALT 11 (7-52) Units/L Alkaline Phosphatase 318 H (34-104) Units/L Albumin 2.7 L (3.5-5.7) g/dL Urine 12/29/18 Range/Units 17:15 Urine Color Yellow (Yellow) Urine Clarity Clear (Clear) Urine pH 7.0 (5.0-8.0) pH Units Ur Specific Lucas 1.010 (1.010-1.025) Urine Protein Negative (Neg-Trace) mg/dL Urine Glucose (UA) Normal (Normal) mg/dL - ABG Interpretation ABG results: ABG ABG pH 7.44 pH Units (7.32-7.45) 12/29/18 15:21 ABG pCO2 60 mmHg (35-45) H 12/29/18 15:21 ABG pO2 69 mmHg (85-104) L 12/29/18 15:21 ABG O2 Saturation 93 % (95-98) L 12/29/18 15:21 PT/INR, D-dimer PT 14.7 Seconds (9.4-12.1) H 12/29/18 14:33 - Impressions Impressions Chest X-Ray 12/29/18 13:53 IMPRESSION: 1. Small-moderate right pleural effusion with extensive consolidation associated with the right lung neoplasm. Associated atelectasis. PleurX drain unchanged. 2. Left lung is well aerated. D/ / 12/29/2018 14:38:26 Ike Unger MD / [email or web address] Interpreting Provider: Ike Unger MD Abdomen/Pelvis CT 12/29/18 13:56 IMPRESSION: Chronic right pleural effusion with unchanged PleurX catheter positioning. Pleural effusion has decreased in size slightly since the prior exam, with corresponding mild improvement in right lung aeration. Heterogeneous enhancement within atelectatic right lung could reflect malignancy and/or infectious airspace disease. Features of disease progression include increased/new left lung nodularity and new mixed osteolytic/blastic skeletal lesions. Large colorectal stool volume without obstruction, suggesting constipation. D/ / 12/29/2018 16:49:19 Onur Gomez / anatoliy Interpreting Provider: Onur Gomez Chest CTA 12/29/18 13:56 IMPRESSION: Chronic right pleural effusion with unchanged PleurX catheter positioning. Pleural effusion has decreased in size slightly since the prior exam, with corresponding mild improvement in right lung aeration. Heterogeneous enhancement within atelectatic right lung could reflect malignancy and/or infectious airspace disease. Features of disease progression include increased/new left lung nodularity and new mixed osteolytic/blastic skeletal lesions. Large colorectal stool volume without obstruction, suggesting constipation. D/ / 12/29/2018 16:49:19 Onur cope Interpreting Provider: Onur Gomez Consult Discharge Plan - Plan Referrals: Mick Langford MD [Primary Care Provider] - Palliative Quality Palliative Quality: Screen for Code Status: Yes, Screen for Goals of Care: Yes, Screen for Pain: Yes, If Pain Regimen Started, Initiate Bowel Regimen: Yes, Screen for Nausea/Vomitting: Yes Code Status: 12/29/18 23:13 Resuscitation Status: Active [RES] Routine Comment: Resuscitation Status: DNR-Comfort Care
--- NOTE | 2018-12-30 13:26 | Discharge Summary ---
- NOTES TO OUTPATIENT PROVIDER Notes to Outpatient Provider: hopsice as out pt Orders not resulted at time of discharge: Pending orders 12/29/18 14:43 Culture,Blood [BC] Stat 12/30/18 00:49 Legionella Antigen [RM] Routine 12/30/18 00:50 Streptococcal pneumoniae urin antigen [S. Pneumoniae Antigen] [RM] Routine 12/30/18 10:23 MRSA Surveillance Screen [MOLMIC] Stat 12/31/18 06:00 Vancomycin,Trough Timed Date of Encounter: 12/30/18 Time of Encounter: 13:24 - Discharge Diagnosis (1) COPD (chronic obstructive pulmonary disease) Priority: Secondary Status: Acute Qualifiers: COPD type: unspecified COPD Qualified Code(s): J44.9 - Chronic obstructive pulmonary disease, unspecified (2) Lung cancer Priority: Primary Status: Acute Qualifiers: Laterality: unspecified laterality Lung location: unspecified part of lung Qualified Code(s): C34.90 - Malignant neoplasm of unspecified part of unspecified bronchus or lung Hospital course: Ms. 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 Patient was diagnosed with adenocarcinoma of the right lung earlier this year and now follows up with [facility] for her radiation appointment. This morning she went to Dr. White's office for her appointment and was found to have difficulty breathing. Patient also endorses 14 days of constipation. she was sent to the ER for further evaluation of her dyspnea and hypoxia. In the ED patient was on 8 L of oxygen mask. Labs showed patient was leukocytotic with a white blood count of 15, Hb: 9.9, Neutrophils : 13.2. Her ABG showed primary metabolic alkalosis with secondary respiratory acidosis . She also had a CTA which was negative for pulmonary embolism but showed chronic right pleural effusion. Patient has a Pleurx catheter on the right side of her chest which was put on 11/26/2018 There was also evidence for heterogenous enhancement within atelectatic right lung suggestive of malignancy/infectious disease. She was put on vancomycin and Zosyn in the ED and was given Solu- Medrol. She was admitted to the floor for further management. I talked to the pt today, pt really just want to be pain free and comfortable, I spoke with pallaitive care, we will work on the social issues and try to get her a place where she can be comfortable and not aggressive treatment. Time spent discussing smoking cessation with patient: more than 10 minutes - Time Spent with Patient Total time spent providing and/or coordinating discharge services: - Discharge Medications Prescriptions: New LORazepam Oral Conc [Ativan Oral Conc] 2 mg PO Q6HR 7 Days #20 mls Haloperidol [Haldol] 5 mg PO QID PRN #14 tablet PRN Reason: Agitation Morphine Oral CONC [Roxanol] 0.5 ml PO Q4H PRN 7 Days #30 ml PRN Reason: Dyspnea Discontinued Beclomethasone Dip 40mcg REDIH [Qvar 40 Mcg Redihaler] 1 puff IH BID Albuterol Sulfate [Ventolin Hfa] 2 puff IH Q4H PRN PRN Reason: Shortness Of Breath Lisinopril [Zestril] 20 mg PO DAILY Levothyroxine Sodium 75 mcg PO QAM Escitalopram [Lexapro] 10 mg PO DAILY ARIPiprazole [Abilify] 2 mg PO DAILY Ondansetron HCl 8 mg PO Q8HR PRN #60 tablet PRN Reason: Nausea Omeprazole [PriLOSEC] 20 mg PO DAILY #30 cap HYDROcodone/Acet 5/325 mg [[place] 5-325 mg] 1 tab PO Q6HR PRN 30 Days #120 tablet PRN Reason: Pain Cetirizine HCl [24Hour Allergy] 10 mg PO DAILY Docusate Sodium [Stool Softener] 100 mg PO TID Ipratropium/Albuterol Sulfate [Iprat-Albut 0.5-3(2.5) mg/3 ml] 3 ml IH Q6H PRN PRN Reason: Shortness Of Breath Morphine Sulfate [Arymo ER] 15 mg PO Q12H Polyethylene Glycol 3350 [MiraLax bowel prep] 17 gm PO DAILY Home Medications: Haloperidol [Haldol] 5 mg PO QID PRN #14 tablet 12/30/18 [Rx] LORazepam Oral Conc [Ativan Oral Conc] 2 mg PO Q6HR 7 Days #20 mls 12/30/18 [Rx] Morphine Oral CONC [Roxanol] 0.5 ml PO Q4H PRN 7 Days #30 ml 12/30/18 [Rx] Allergies/Adverse Reactions: Allergy/AdvReac Type Severity Reaction Status Date / Time No Known Allergies Allergy Verified 12/30/18 09:13 Date of admission: 12/29/18 19:02 Primary care physician: Mick Langford MD Consults: 12/29/18 23:42 Consult to Palliative Care [CONS] Routine Comment: Consulting Provider: Palliative Care Lizett Reason for Consult: home hospice discussion Call Completed: No - Constitutional Vitals: Temp Pulse Resp BP Pulse Ox 97.4 F L 120 16 108/64 87 12/30/18 07:32 12/30/18 11:36 12/30/18 11:36 12/30/18 11:36 12/30/18 11:36 Exam: Gen.: Vitals noted. No acute distress. Alert, awake and oriented * 3 [address], place, and time, well developed, well-nourished resting comfortably in bed. Pleasant. HEENT: oropharynx clear, Normocephalic, atraumatic, MMM Neck: supple, no JVD, no lymphadenopathy, no carotid bruit. Cardiac: RRR, no murmur, +S1/S2, No BLE edema, PMI non-displaced Pulmonary: faint wheezes, decreased breath sounds in the R lung, Right sided pleurx drain with dressing no rales or rhonchi, equal chest expansion, unlabored breathing Abdomen: soft, nontender, BS noted, no guarding, mildly distended. No organomegaly, no pulsatile masses, Skin: warm and dry, no visible lesions. Feels warm, clammy, no rashes, no lesions, no erythema MSK: ROM not assessed. no joint swelling noted, gait not assessed while in bed. Non tender calf or clubbing, no cyanosis/clubbing/ or edema Neuro: A&O, moves all extremities, no focal deficits, sensation intact Psych: Appropriate mood and behavior, normal speech. . - Patient Status Disposition: Hospice - Medical Facility Condition: Fair - Discharge Instructions Follow Up With: Mick Langford MD [Primary Care Provider] -
[2018-12-30] MEDS: *HR* LORazepam Oral Conc 2 MG/ML SL PRN (13:46)
--- NOTE | 2018-12-30 14:06 | Oncology Inp Consult Note ---
<Vanna Andre L - Last Filed: 12/30/18 16:10> Date of Encounter: 12/30/18 Time of Encounter: 15:00 Assessment and Plan (1) Constipation Status: Acute Assessment and plan: No BM reported for 2 weeks Plan: Palliative care assisting to manage Likely opioid induced constipation which has not resolved despite use of oral laxatives and Milk of Molasses enema yesterday. 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 Completed palliative radiotherapy to her chest and brain 12/03/2018 - 12/16/2018. Plan: Patient has continued to experience decline in overall functional status limiting her future treatment options and ability to safely continue treatment. In addition to this, patient has voiced her wishes to not pursue further treatment options and instead discuss options for hospice care. Palliative care has already consulted with patient and planning for discharge to [facility] with [facility] once symptoms controlled. She is a DNR-CC, Palliative care has helped to assign POA to patients sister, Amparo and her mother, Shiela, as her alternate. I have also asked nursing staff to help drain her pleurx, if we are unable to drain or provide adequate relief we may consult IR tomorrow for therapeutic thoracentesis Oncology agrees with transition to palliative care given patients requests and continued decline in functional status, words of encouragement provided to patient and family Qualifiers: Laterality: right Qualified Code(s): C34.91 - Malignant neoplasm of unspecified part of right bronchus or lung - Data of Consult Requesting Physician: Etienne Rodriguez Primary Care Provider: Mick Langford MD - Consult Narrative Reason for consult: Metastatic poorly differentiated adenocarcinoma of the right lung History of present illness: Ms. Reis is a 48 year old female with metastatic poorly differentiated adenocarcinoma of the right lung. PD L1 < 1%, EGFR, ALK, ROS1, MET mutational analysis negative. Patient initially presented with a large right-sided pleural effusion s/p pleurx catheter placement with associated right upper lobe lung mass with mediastinal adenopathy. She has multiple pulmonary metastases as well as possible T 11 metastasis. MRI imaging of brain confirmed brain metastases on initial diagnosis. She has completed palliative radiotherapy to her chest and brain 12/03/2018 - 12/16/2018. On 12/29/2018 [facility] in acute on chronic respiratory distress. She was then directed to the Emergency Department for respiratory support, assistance with 14 day reported history of constipation and discussion with palliative care in regards to hospice. She has been admitted with palliative care consultation and planning for discharge to [facility] with hospice care once symptom management obtained/constipation resolves. Ms. Reis was evaluated at bedside. Her mother is at bedside. Her sister was entering patients room upon my leaving. She appears uncomfortable secondary to her significant constipation. She is weak and debilitated and mostly bed bound. She has had little oral intake secondary to dysphagia she is unable to tolerate most foods. She states she attempted to eat a salad for lunch but could not finish due to difficulty swallowing the food. She is able to tolerate soft and liquid foods. Past Med Surg Social Fam HX - Past Medical History Medical history: asthma, cancer, diabetes, hypertension, thyroid disease Additional medical history: Endometriosis. DDD Psychiatric history: no psych history - Past Surgical History Surgical History: cholecystectomy, other Additional surgical history: Tonsilectomy. One filopian tube and ovary removed - Social History Smoking Status: Former smoker Smokeless Tobacco Status: No Alcohol use: none Drug use: none - Family History Mother Adopted: Yes Family Member Ethnicity: Non- Living Status: Still Living Hx Family Cardiac Disorders: Yes (hypertension) Hx Family Endocrine Disorder: Yes (diabetes) Father Adopted: No Family Member Ethnicity: Non- Living Status: Hx Family Cardiac Disorders: Yes (hypertension, heart disease unspecified) Hx Family Cancer: Yes (kidney) Hx Family Endocrine Disorder: Yes (diabetes) Medications and Allergies Haloperidol [Haldol] 5 mg PO QID PRN #14 tablet 12/30/18 [Rx] LORazepam Oral Conc [Ativan Oral Conc] 2 mg PO Q6HR 7 Days #20 mls 12/30/18 [Rx] Morphine Oral CONC [Roxanol] 0.5 ml PO Q4H PRN 7 Days #30 ml 12/30/18 [Rx] Allergy/AdvReac Type Severity Reaction Status Date / Time No Known Allergies Allergy Verified 12/30/18 09:13 Constitutional: Present: anorexia, fatigue, headache(s), weakness. Absent: fever(s) Eyes: Absent: change in vision Nose, mouth and throat: Present: dysphagia. Absent: odynophagia Cardiovascular: Absent: chest pain Respiratory: Present: cough, dyspnea on exertion Gastrointestinal: Present: as per HPI, bloating, constipation, nausea. Absent: vomiting Genitourinary: Absent: dysuria Musculoskeletal: Present: muscle weakness Integumentary: Absent: rash, wounds Neurological: Absent: dizziness, focal weakness Psychiatric: Present: as per HPI Hematologic/Lymphatic: Present: as per HPI Oncology - Exam - Constitutional General appearance: cooperative, obese, no febrile Exam: Appears uncomfortable secondary to constipation - Head Head exam: Present: atraumatic - ENT ENT exam: Present: normal oropharynx - Respiratory Respiratory exam: Present: decreased breath sounds, CTAB. Absent: respiratory distress - Cardiovascular Cardiovascular exam: Present: RRR - GI/Abdominal GI/Abdominal exam: Present: normal bowel sounds, soft, tenderness - Extremities Exam Extremities exam: Present: normal inspection. Absent: calf tenderness - Neurological Exam Neurological exam: Present: alert, oriented X3, no focal deficits, strengths equal and symetr throughout - Psychiatric Psychiatric exam: Present: anxious - Skin Skin exam: Present: dry, intact, normal color, warm Consult Discharge Plan - Plan Referrals: Mick Langford MD [Primary Care Provider] - Prescriptions: LORazepam Oral Conc [Ativan Oral Conc] 2 mg PO Q6HR 7 Days #20 mls Haloperidol [Haldol] 5 mg PO QID PRN #14 tablet PRN Reason: Agitation Morphine Oral CONC [Roxanol] 0.5 ml PO Q4H PRN 7 Days #30 ml PRN Reason: Dyspnea Inpatient Charges Provider: Dr. Elsy White <Jasper White - Last Filed: 12/30/18 20:56> Date of Encounter: 12/30/18 - Data of Consult Requesting Physician: Etienne Rodriguez Primary Care Provider: Mick Langford MD - Attending Attestation I have seen and examined Ms. Reis and agree with the assessment placed by Ms. andre. Ms. Reis is a very pleasant 48-year-old woman with an aggressive carcinoma of the lung. She recently completed a course of palliative radiation to the brain as well as chest. This therapy was very difficult and she is quite fatigued and debilitated from such. At current, she is unable to perform her normal activities and requires assistance with bathing, feeding and dressing from her sister whom she has lived with. She presented yesterday to the cancer center. She was acutely hypoxic and in discomfort secondary to two-week history of constipation. I asked that she be admitted for further management. Speaking with the patient today, she did pass small stool after management of with stool softeners, enema, milk of magnesia as well as a dose of relistor. Yesterday, she discussed that she did not want to pursue any further therapy and was interested in hospice care. I agree that this is reasonable. Today, she reiterates this desire. She has met with palliative care today and the care plan has been put in place. Currently, the plan is for her to be discharged to a assisted facility under hospice care. I agree with the plan to proceed with further management of her constipation with lactulose. We will also assess potential need for thoracentesis given her hypoxia. We will attempt exception of her Pleurx catheter initially. I did meet with her sister as well as her mother who are in agreement with this plan. Inpatient Charges Provider: Dr. Elsy White Consult - Inpatient: [id number]
[2018-12-30] MEDS ORDERED: Lactulose Oral Soln 20 GM/30 ML UDC PO ONE (15:29)
[2018-12-30] MEDS: MORPHINE SUL Oral CONC 10 MG/0.5 ML ORAL.SYG SL PRN ×2 (16:35→20:25)
[2018-12-30] MEDS: Sennosides/Docusate Sodium TABLET PO SCH (20:22)
[2018-12-31] MEDS: *HR* Morphine Sulfate SR (12 HR) 15 MG TABLET.ER PO SCH ×3 (00:06→23:51)
[2018-12-31] MEDS: Piperacillin/Tazobactam 3.375 GM in 0.9 % Sodium Chloride Mini Bag 100 ML IVPB SCH ×3 (02:42→17:15)
[2018-12-31] MEDS: MORPHINE SUL Oral CONC 10 MG/0.5 ML ORAL.SYG SL PRN ×6 (02:50→20:34)
[2018-12-31] MEDS: Ipratropium/Albuterol Neb 3 ML IH SCH ×5 (04:04→19:58)
[2018-12-31] MEDS: *HR* Heparin 5,000 UNIT/ML VIAL SQ SCH ×2 (05:51→17:15)
[2018-12-31] MEDS ORDERED: Aminoglycoside Consult 1 EACH MC ONE (07:27)
[2018-12-31] MEDS: Sennosides/Docusate Sodium TABLET PO SCH ×2 (08:30→20:33)
[2018-12-31] MEDS: Insulin LISPRO 300 UNITS/3 ML VIAL SQ SCH ×4 (08:32→22:56)
[2018-12-31] MEDS ORDERED: Lactulose Oral Soln 20 GM/30 ML UDC PO SCH (09:00)
--- NOTE | 2018-12-31 10:37 | Palliative Progress Note ---
Date of Encounter: 12/31/18 Time of Encounter: 10:20 - Assessment and plan (1) Cancer associated pain Current Visit: No Status: Acute Assessment and plan: Continues with MS Buckley was transitioned to Roxanol yesterday. She has utilized Roxanol x4 last 24 hours and states that it is effective and she is pleased with this medications. Continue and monitor (2) Therapeutic opioid-induced constipation (OIC) Current Visit: Yes Status: Acute Assessment and plan: Still no BM. Continue Lactulose, Senokot, Miralax. Will give another Milk and Molasses enema today and I told patient will likely need manual evacuation. Will see again this afternoon and attempt to disimpact if no BM with repeat enema. (3) Anxiety Current Visit: Yes Status: Acute Assessment and plan: Continue low dose Lorazepam. Utilized x1 last 24 hours. (4) Dyspnea Current Visit: No Status: Acute Assessment and plan: Remains on 8L and is symptomatic. Pleurx cath will not drain. D/W Dr. Rodriguez and reviewed Dr. White note. Consult to IR to have this evaluated. Patient is willing to have thoracentesis if warranted. Qualifiers: Dyspnea type: unspecified Qualified Code(s): R06.00 - Dyspnea, unspecified (5) Advance care planning Current Visit: Yes Status: Acute Assessment and plan: POA/Code status forms completed yesterday. Jarad DAVIDSON working on discharge plan to [facility]. Patient in agreement. (6) Palliative care encounter Current Visit: Yes Status: Acute (7) Asthma exacerbation with COPD (chronic obstructive pulmonary disease) Current Visit: No Status: Acute (8) Pneumonia Current Visit: Yes Status: Acute Qualifiers: Pneumonia type: due to unspecified organism Laterality: right Lung location: unspecified part of lung Qualified Code(s): J18.9 - Pneumonia, unspecified organism (9) Pleural effusion Current Visit: Yes Status: Acute Assessment and plan: Consult to IR today - Time Spent With Patient Total time spent is greater than 50% in coordination of care (as documented) at patient's floor/unit and/or counseling patient: - Subjective Interval history: Patient awake and alert. Still no BM. Staff was unable to get pleurx cath to drain this am. Still remains on 8 L oxygen. States that Roxanol was very helpful for her discomfort and that dose of liquid Lorazepam helped with anxiety yesterday. - Constitutional Vitals: Abnormal lab results WBC 15.0 K/mcL (4.3-11.1) H 12/29/18 14:33 Hgb 9.9 g/dL (11.5-15.4) L 12/29/18 14:33 Hct 33.8 % (35.3-44.9) L 12/29/18 14:33 MCH 25.8 pg (28.0-33.3) L 12/29/18 14:33 MCHC 29.3 g/dL (31.6-35.5) L 12/29/18 14:33 RDW 17.4 % (11.5-14.5) H 12/29/18 14:33 13.2 K/mcL (1.6-8.9) H 12/29/18 14:33 Nucleated RBCs/100 WBC 0.7 /100 WBC (0) H 12/29/18 14:33 PT 14.7 Seconds (9.4-12.1) H 12/29/18 14:33 ABG pCO2 60 mmHg (35-45) H 12/29/18 15:21 ABG pO2 69 mmHg (85-104) L 12/29/18 15:21 ABG HCO3 41 mEq/L (21-27) H 12/29/18 15:21 ABG Total CO2 43 mEq/L (20-26) H 12/29/18 15:21 ABG O2 Saturation 93 % (95-98) L 12/29/18 15:21 ABG Base Excess 14 mEq/L (-2 to 3) H 12/29/18 15:21 Chloride 93 mEq/L (98-107) L 12/29/18 14:33 Carbon Dioxide 34 mEq/L (23-29) H 12/29/18 14:33 0.41 mg/dL (0.60-1.20) L 12/29/18 14:33 32 (6-26) H 12/29/18 14:33 Glucose 126 mg/dL (70-105) H 12/29/18 14:33 POC Glucose 113 mg/dL (70-99) H 12/30/18 21:51 318 Units/L (34-104) H 12/29/18 14:33 2.7 g/dL (3.5-5.7) L 12/29/18 14:33 3.8 g/dL (2.4-3.5) H 12/29/18 14:33 0.7 (1.1-2.2) L 12/29/18 14:33 Trace mg/dL (Negative) H 12/29/18 17:15 Moderate (Negative) H 12/29/18 17:15 2.0 mg/dL (Normal) H 12/29/18 17:15 Ur Squamous Epith Cells Many per lpf (None-Few) H 12/29/18 17:15 Vancomycin Trough 20 mcg/mL (5-10) H 12/31/18 06:14 General appearance: Present: mild distress - Respiratory Additional comments: Breath sounds diminished throughout, right greater than left. Pleurx cath intact - Cardiovascular Cardiovascular exam: Present: +S1, +S2 - GI/Abdominal GI/Abdominal exam: Present: diminished bowel sounds, soft - Extremities Exam Extremities exam: Present: normal capillary refill, normal inspection - Neurological Exam Neurological exam: Present: alert, oriented X3, strengths equal and symetr throughout - Skin Skin exam: Present: dry, pallor, warm Palliative Quality Palliative Quality: Screen for Code Status: Yes, Screen for Goals of Care: Yes, Screen for Pain: Yes, If Pain Regimen Started, Initiate Bowel Regimen: Yes, Screen for Nausea/Vomitting: Yes Code Status: 12/29/18 23:13 Resuscitation Status: Active [RES] Routine Comment: Resuscitation Status: DNR-Comfort Care - Labs CBC & Chem 7: 12/29/18 14:33 12/29/18 14:33 Labs: Laboratory Results - last 24 hr 12/30/18 12/30/18 12/30/18 07:40 11:42 16:31 POC Glucose 148 H 203 H 114 H Nasal Screen MRSA (PCR) Vancomycin Trough 12/30/18 12/30/18 12/31/18 20:54 21:51 06:14 POC Glucose 113 H Nasal Screen MRSA (PCR) Negative Vancomycin Trough 20 H - Impressions Impressions Abdomen/Pelvis CT 12/29/18 13:56 IMPRESSION: Chronic right pleural effusion with unchanged PleurX catheter positioning. Pleural effusion has decreased in size slightly since the prior exam, with corresponding mild improvement in right lung aeration. Heterogeneous enhancement within atelectatic right lung could reflect (known) malignancy and/or infectious airspace disease. Features of disease progression include increased/new left lung nodularity and new mixed osteolytic/blastic skeletal lesions. Large colorectal stool volume without obstruction, suggesting constipation. D/ / 12/29/2018 16:49:19 Onur Goemz / anatoliy Interpreting Provider: Onur Gomez Chest CTA 12/29/18 13:56 IMPRESSION: Chronic right pleural effusion with unchanged PleurX catheter positioning. Pleural effusion has decreased in size slightly since the prior exam, with corresponding mild improvement in right lung aeration. Heterogeneous enhancement within atelectatic right lung could reflect (known) malignancy and/or infectious airspace disease. Features of disease progression include increased/new left lung nodularity and new mixed osteolytic/blastic skeletal lesions. Large colorectal stool volume without obstruction, suggesting constipation. D/ / 12/29/2018 16:49:19 Onur Gomez / anatoliy Interpreting Provider: Onur Gomez - ABG Interpretation ABG results: ABG ABG pH 7.44 pH Units (7.32-7.45) 12/29/18 15:21 ABG pCO2 60 mmHg (35-45) H 12/29/18 15:21 ABG pO2 69 mmHg (85-104) L 12/29/18 15:21 ABG O2 Saturation 93 % (95-98) L 12/29/18 15:21 PT/INR, D-dimer PT 14.7 Seconds (9.4-12.1) H 12/29/18 14:33 Consult Discharge Plan - Plan Referrals: Mick Langford MD [Primary Care Provider] - Prescriptions: LORazepam Oral Conc [Ativan Oral Conc] 0.5 mg PO Q6HR PRN 7 Days #30 mls PRN Reason: Anxiety Morphine Sulfate SR (12 HR) [MS Contin] 1 tab PO Q12HR 7 Days #14 tab MORPHINE SUL Oral CONC [Roxanol Oral Conc] 5 mg SL Q2H PRN 7 Days #30 oral.syg PRN Reason: dyspnea/breakthrough pain
[2018-12-31] MEDS: *HR* LORazepam Oral Conc 2 MG/ML SL PRN ×2 (10:41→16:41)
[2018-12-31] MEDS ORDERED: Milk and Molasses Enema 200 ML RC ONE (10:42)
--- NOTE | 2018-12-31 11:04 | Oncology Inp Progress Note ---
<Vanna Andre L - Last Filed: 12/31/18 16:28> Date of Encounter: 12/31/18 Time of Encounter: 10:20 (1) Constipation Current Visit: Yes Status: Acute Assessment and plan: No BM reported for 2 weeks S/P oral laxatives, Milk of Molasses enema yesterday followed by Relistor without results Plan: Palliative care assisting to manage Planned for repeat mild of moasses enema today followed by manual disimpaction Qualifiers: Constipation type: unspecified constipation type Qualified Code(s): K59.00 - Constipation, unspecified (2) Adenocarcinoma of lung Current Visit: No Status: Acute Assessment and plan: 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 Completed palliative radiotherapy to her chest and brain 12/03/2018 - 12/16/2018. Plan: Patient has continued to experience decline in overall functional status limiting her future treatment options and ability to safely continue treatment. In addition to this, patient has voiced her wishes to not pursue further treatment options and instead discuss options for hospice care. Palliative care has already consulted with patient and planning for discharge to [facility] with [facility] once symptoms controlled. She is a DNR-CC, Palliative care has helped to assign POA to patients sister, Amparo and her mother, Shiela, as her alternate. Oncology agrees with transition to palliative care given patients requests and continued decline in functional status, words of encouragement provided to patient and family We will otherwise plan to sign off at this time. Please feel free to reach out with any further needs. Qualifiers: Laterality: right Qualified Code(s): C34.91 - Malignant neoplasm of unspecified part of right bronchus or lung (3) Dyspnea Current Visit: No Status: Acute Assessment and plan: SOB symptoms have slightly improved with use of antianxiety medications although patient continues to experience SOB with movement and remains on 8L oxymask Unable to drain pleurx catheter, likely loculated effusion IR consulted for US guided thora today Qualifiers: Dyspnea type: unspecified Qualified Code(s): R06.00 - Dyspnea, unspecified Oncology: Subj Interval history: Ms. Reis is resting in bed, she states she feels better than she did yesterday although she has yet to have a bowel movement. Palliative care has already been in this morning, she is planned for a repeat enema followed by manual disimpaction. She continues to report rectal/pelvic discomfort due to her constipation but denies pain otherwise. Nursing staff had attempted to drain her pleurx catheter with no output, order has been placed for US guided therapeutic thoracentesis, I did call IR to confirm the order and they will be around david. SOB has somewhat improved but this is likely due to better control of her anxiety as patient states she feels improvement in her symptoms now with use of her PRN antianxiety medications. She is still on 8L oxymask. She has not been out of bed. Continues to have poor appetite and tolerates only certain foods due to dysphagia. Denies odynophagia. - Constitutional General appearance: cooperative, no acute distress, no febrile - Head Head exam: Present: atraumatic - ENT ENT exam: Present: mucous membranes dry, normal oropharynx - Respiratory Respiratory exam: Present: decreased breath sounds, CTAB. Absent: respiratory distress - Cardiovascular Cardiovascular exam: Present: RRR - GI/Abdominal GI/Abdominal exam: Present: distended, normal bowel sounds, soft, tenderness - Extremities Exam Extremities exam: Present: pedal edema. Absent: calf tenderness - Neurological Exam Neurological exam: Present: alert, oriented X3, no focal deficits, strengths equal and symetr throughout - Psychiatric Psychiatric exam: Present: normal affect, normal mood - Skin Skin exam: Present: dry, pallor, warm Oncology: Obj Data - Labs CBC & Chem 7: 12/29/18 14:33 12/29/18 14:33 Consult Discharge Plan - Plan Referrals: Mick Langford MD [Primary Care Provider] - Prescriptions: LORazepam Oral Conc [Ativan Oral Conc] 0.5 mg PO Q6HR PRN 7 Days #30 mls PRN Reason: Anxiety Morphine Sulfate SR (12 HR) [MS Contin] 1 tab PO Q12HR 7 Days #14 tab MORPHINE SUL Oral CONC [Roxanol Oral Conc] 5 mg SL Q2H PRN 7 Days #30 oral.syg PRN Reason: dyspnea/breakthrough pain Inpatient Charges Provider: Dr. Elsy White <Jasper White - Last Filed: 12/31/18 21:40> Date of Encounter: 12/31/18 Oncology: Obj Data - Labs CBC & Chem 7: 12/29/18 14:33 12/29/18 14:33 Inpatient Charges Provider: Dr. Elsy White Follow up - Inpatient: [id number] - Attending Attestation I examined this patient and my medical decision-making was reviewed with the Advanced Practice Nurse. I agree with the documented findings, disposition and treatment plan as described except to the extent set forth below. She is currently being disimpacted by the palliative care team and making progress. Thoracentesis was not performed as there was no accessible fluid. She remains uncomfortable from obstipation/impaction. Once her bowels are moving, she will proceeding to SNF on hospice. Appreciate palliative care assistance with her obstipation and transition to hospice. We will sign off but feel free to call with concerns or questions.
--- NOTE | 2018-12-31 11:45 | Internal Med Progress Note ---
Hospitalist Progress Note - Encounter Date of Encounter: 12/31/18 Time of Encounter: 11:43 - Subjective Interval History: Pt stated that her main concern is that she is very constipated and wish for relief - Exam Vitals: Temp Pulse Resp BP Pulse Ox 97.5 F L 107 16 124/73 95 12/31/18 10:49 12/31/18 10:49 12/31/18 07:23 12/31/18 10:49 12/31/18 10:49 Exam: Gen.: Vitals noted. No acute distress. Alert, awake and oriented * 3 [address], [address], and time, well developed, well-nourished resting comfortably in bed. Pleasant. HEENT: oropharynx clear, Normocephalic, atraumatic, MMM Neck: supple, no JVD, no lymphadenopathy, no carotid bruit. Cardiac: RRR, no murmur, +S1/S2, No BLE edema, PMI non-displaced Pulmonary: faint wheezes, decreased breath sounds in the R lung, Right sided pleurx drain with dressing no rales or rhonchi, equal chest expansion, unlabored breathing Abdomen: soft, nontender, BS noted, no guarding, mildly distended. No organomegaly, no pulsatile masses, Skin: warm and dry, no visible lesions. Feels warm, clammy, no rashes, no lesions, no erythema MSK: ROM not assessed. no joint swelling noted, gait not assessed while in bed. Non tender calf or clubbing, no cyanosis/clubbing/ or edema Neuro: A&O, moves all extremities, no focal deficits, sensation intact Psych: Appropriate mood and behavior, normal speech. . - Assessment and Plan (1) COPD (chronic obstructive pulmonary disease) Current Visit: Yes Status: Acute Assessment and Plan: This is a 48 yof who presetned with acute on chronic resp faliure due to lung cancer 1) comfort care in the setting of metastatic lung cnacer: Pt wished to be in pallaive care, we have started on ativan, and roxanol and haldol as well Pt is rather ocmfortable, the only concern is constpiation today --we will start pt on latulose/ miralax/colace, and enema until stools 2)recurrent pleural effusion: pallaive care is reaching out to IR for pallaitve drainage 3)dispo: await hospice to set up for in pt Time; 35min (2) Lung cancer Current Visit: Yes Status: Acute - Time Spent with Patient Total time spent is greater than 50% in coordination of care (as documented) at patient's floor/unit and/or counseling patient: Internal Medicine: Result - Labs CBC & Chem 7: 12/29/18 14:33 12/29/18 14:33 - ABG Interpretation ABG results: ABG ABG pH 7.44 pH Units (7.32-7.45) 12/29/18 15:21 ABG pCO2 60 mmHg (35-45) H 12/29/18 15:21 ABG pO2 69 mmHg (85-104) L 12/29/18 15:21 ABG O2 Saturation 93 % (95-98) L 12/29/18 15:21 PT/INR, D-dimer PT 14.7 Seconds (9.4-12.1) H 12/29/18 14:33 - Impressions Impressions Abdomen/Pelvis CT 12/29/18 13:56 IMPRESSION: Chronic right pleural effusion with unchanged PleurX catheter positioning. Pleural effusion has decreased in size slightly since the prior exam, with corresponding mild improvement in right lung aeration. Heterogeneous enhancement within atelectatic right lung could reflect (known) malignancy and/or infectious airspace disease. Features of disease progression include increased/new left lung nodularity and new mixed osteolytic/blastic skeletal lesions. Large colorectal stool volume without obstruction, suggesting constipation. D/ / 12/29/2018 16:49:19 Onur Gomez / anatoliy Interpreting Provider: Onur Gomez Chest CTA 12/29/18 13:56 IMPRESSION: Chronic right pleural effusion with unchanged PleurX catheter positioning. Pleural effusion has decreased in size slightly since the prior exam, with corresponding mild improvement in right lung aeration. Heterogeneous enhancement within atelectatic right lung could reflect (known) malignancy and/or infectious airspace disease. Features of disease progression include increased/new left lung nodularity and new mixed osteolytic/blastic skeletal lesions. Large colorectal stool volume without obstruction, suggesting constipation. D/ / 12/29/2018 16:49:19 Onur Gomez / anatoliy Interpreting Provider: Onur Gomez Consult Discharge Plan - Plan Referrals: Mick Langford MD [Primary Care Provider] - Prescriptions: LORazepam Oral Conc [Ativan Oral Conc] 0.5 mg PO Q6HR PRN 7 Days #30 mls PRN Reason: Anxiety Morphine Sulfate SR (12 HR) [MS Contin] 1 tab PO Q12HR 7 Days #14 tab MORPHINE SUL Oral CONC [Roxanol Oral Conc] 5 mg SL Q2H PRN 7 Days #30 oral.syg PRN Reason: dyspnea/breakthrough pain (1) COPD (chronic obstructive pulmonary disease) Qualifiers: COPD type: unspecified COPD Qualified Code(s): J44.9 - Chronic obstructive pulmonary disease, unspecified (2) Lung cancer Qualifiers: Laterality: unspecified laterality Lung location: unspecified part of lung Qualified Code(s): C34.90 - Malignant neoplasm of unspecified part of unspecified bronchus or lung
[2018-12-31] MEDS: Lactulose Oral Soln 20 GM/30 ML UDC PO SCH ×3 (12:38→20:35)
--- NOTE | 2018-12-31 14:40 | IR Progress Note ---
Vital Signs: Vital Signs/O2 Sat, Most Current Temp Pulse Resp BP Pulse Ox 97.5 F L 107 16 124/73 96 12/31/18 10:49 12/31/18 10:49 12/31/18 11:10 12/31/18 10:49 12/31/18 11:10 Recent Labs: Lab Results 12/29/18 12/29/18 12/29/18 14:33 14:33 14:33 WBC 15.0 H RBC 3.84 Hgb 9.9 L Hct 33.8 L MCV 88.0 MCH 25.8 L MCHC 29.3 L RDW 17.4 H Plt Count 350 MPV 10.0 Neutrophils # 13.2 H Lymphocytes # 0.6 Monocytes # 1.2 Sodium 140 Potassium 4.2 Chloride 93 L Carbon Dioxide 34 H BUN 13 Creatinine 0.41 L Est GFR ( Amer) > 60 Est GFR (Non-Af Amer) > 60 BUN/Creatinine Ratio 32 H Glucose 126 H Lactic Acid 1.2 Calcium 8.8 Assessment and Plan nonfunctioning pleurX catheter. No fluid seen by US. thoracentesis not performed
[2018-12-31] MEDS: Milk and Molasses Enema 200 ML RC SCH ×8 (15:00→23:52)
[2019-01-01] MEDS: Ipratropium/Albuterol Neb 3 ML IH SCH ×6 (00:12→20:09)
[2019-01-01] MEDS: MORPHINE SUL Oral CONC 10 MG/0.5 ML ORAL.SYG SL PRN ×5 (02:30→21:08)
[2019-01-01] MEDS: Piperacillin/Tazobactam 3.375 GM in 0.9 % Sodium Chloride Mini Bag 100 ML IVPB SCH ×3 (02:31→18:27)
[2019-01-01] MEDS: Milk and Molasses Enema 200 ML RC SCH ×11 (02:36→23:23)
[2019-01-01] MEDS: *HR* LORazepam Oral Conc 2 MG/ML SL PRN ×3 (03:19→18:29)
[2019-01-01] MEDS: *HR* Heparin 5,000 UNIT/ML VIAL SQ SCH ×2 (06:23→18:29)
[2019-01-01] MEDS: Insulin LISPRO 300 UNITS/3 ML VIAL SQ SCH ×4 (08:29→21:03)
[2019-01-01] MEDS: Lactulose Oral Soln 20 GM/30 ML UDC PO SCH ×3 (08:37→21:04)
[2019-01-01] MEDS: Sennosides/Docusate Sodium TABLET PO SCH ×2 (08:37→21:04)
--- NOTE | 2019-01-01 11:19 | Internal Med Progress Note ---
Hospitalist Progress Note - Encounter Date of Encounter: 01/01/19 Time of Encounter: 11:18 - Subjective Interval History: Pt feels well, no new issues - Exam Vitals: Temp Pulse Resp BP Pulse Ox 97.8 F 116 18 120/69 95 01/01/19 08:09 01/01/19 08:09 01/01/19 11:02 01/01/19 08:09 01/01/19 11:02 Exam: Gen.: Vitals noted. No acute distress. Alert, awake and oriented * 3 to person, place, and time, well developed, well-nourished resting comfortably in bed. Pleasant. HEENT: oropharynx clear, Normocephalic, atraumatic, MMM Neck: supple, no JVD, no lymphadenopathy, no carotid bruit. Cardiac: RRR, no murmur, +S1/S2, No BLE edema, PMI non-displaced Pulmonary: faint wheezes, decreased breath sounds in the R lung, Right sided pleurx drain with dressing no rales or rhonchi, equal chest expansion, unlabored breathing Abdomen: soft, nontender, BS noted, no guarding, mildly distended. No organomegaly, no pulsatile masses, Skin: warm and dry, no visible lesions. Feels warm, clammy, no rashes, no lesions, no erythema MSK: ROM not assessed. no joint swelling noted, gait not assessed while in bed. Non tender calf or clubbing, no cyanosis/clubbing/ or edema Neuro: A&O, moves all extremities, no focal deficits, sensation intact Psych: Appropriate mood and behavior, normal speech. . - Assessment and Plan (1) COPD (chronic obstructive pulmonary disease) Current Visit: Yes Status: Acute (2) Lung cancer Current Visit: Yes Status: Acute - Summary of Assessment and Plan Summary of Assessment and Plan: This is a 48 yof who presetned with acute on chronic resp faliure due to lung cancer 1) comfort care in the setting of metastatic lung cnacer: Pt wished to be in pallaive care, we have started on ativan, and roxanol and haldol as well Pt is rather ocmfortable, the only concern is constpiation today --we will start pt on latulose/ miralax/colace, and enema until stools 2)recurrent pleural effusion: no pelural effusion, no need for thoracentesis 3)dispo: await hospice to set up for in pt Time; 35min - Time Spent with Patient Total time spent is greater than 50% in coordination of care (as documented) at patient's floor/unit and/or counseling patient: Internal Medicine: Result - Labs CBC & Chem 7: 12/29/18 14:33 12/29/18 14:33 - ABG Interpretation ABG results: ABG ABG pH 7.44 pH Units (7.32-7.45) 12/29/18 15:21 ABG pCO2 60 mmHg (35-45) H 12/29/18 15:21 ABG pO2 69 mmHg (85-104) L 12/29/18 15:21 ABG O2 Saturation 93 % (95-98) L 12/29/18 15:21 PT/INR, D-dimer PT 14.7 Seconds (9.4-12.1) H 12/29/18 14:33 - Impressions Impressions Chest Ultrasound 12/31/18 10:50 IMPRESSION: No drainable fluid collection is identified. D/ / Dieter Mckeon MD / Dieter Mckeon MD Interpreting Provider: Diteer Mckeon MD Consult Discharge Plan - Plan Referrals: Mick Langford MD [Primary Care Provider] - Prescriptions: LORazepam Oral Conc [Ativan Oral Conc] 0.5 mg PO Q6HR PRN 7 Days #30 mls PRN Reason: Anxiety Morphine Sulfate SR (12 HR) [MS Contin] 1 tab PO Q12HR 7 Days #14 tab MORPHINE SUL Oral CONC [Roxanol Oral Conc] 5 mg SL Q2H PRN 7 Days #30 oral.syg PRN Reason: dyspnea/breakthrough pain (1) COPD (chronic obstructive pulmonary disease) Qualifiers: Qualified Code(s): J44.9 - Chronic obstructive pulmonary disease, unspecified (2) Lung cancer Qualifiers: Qualified Code(s): C34.90 - Malignant neoplasm of unspecified part of unspecified bronchus or lung
--- NOTE | 2019-01-01 11:20 | Palliative Progress Note ---
<Nikolas Nicole - Last Filed: 01/01/19 11:08> Date of Encounter: 01/01/19 Time of Encounter: 10:30 - Assessment and plan (1) Therapeutic opioid-induced constipation (OIC) Current Visit: Yes Status: Acute Assessment and plan: Patient had 2 large BMs yesterday, however they were loose stools. Given that she has not had formed stools yet, we will continue with current regimen until she can have formed stools. - Continue Lactulose, Senokot, Miralax, Milk and Molasses enema. Once she starts having formed stools, we can change her regimen to Miralax and Senna instead. (2) Cancer associated pain Current Visit: No Status: Acute Assessment and plan: Pain is well controlled. - Continue Roxanol 5 mg SL q2H PRN. Used once today in AM. - Continue MS contin 15 mg q12H (3) Anxiety Current Visit: Yes Status: Acute Assessment and plan: - Continue ativan 0.5 mg PRN. Used once last night. (4) Dyspnea Current Visit: No Status: Acute Assessment and plan: On 7 L of O2 via mask. O2 sat. of 92-96%. No drainage from pleurex catheter. Chest u/s yesterday found no drainable fluid. Was able to talk to cardiothoracic surgeon Dr. Rodriguez who put the cathether in place. Plan is if patient has been drainage 50 ml or less from the pleurex catheter, he will remove the catheter. - Dr. Rodriguez to come by tomorrow morning to round on patient. Will evaluate if pleurex catheter is to be removed or not. Qualifiers: Dyspnea type: unspecified Qualified Code(s): R06.00 - Dyspnea, unspecified (5) Advance care planning Current Visit: Yes Status: Acute Assessment and plan: Code status is DNR-CC. POA is Amparo (her sister). Jarad DAVIDSON working on discharge plan to [facility]. Patient in agreement. (6) Pleural effusion Current Visit: Yes Status: Acute Assessment and plan: See plan for dyspnea. (7) Pneumonia Current Visit: Yes Status: Acute Qualifiers: Pneumonia type: due to unspecified organism Laterality: right Lung location: unspecified part of lung Qualified Code(s): J18.9 - Pneumonia, unspecified organism - Time Spent With Patient Total time spent is greater than 50% in coordination of care (as documented) at patient's floor/unit and/or counseling patient: - Subjective Interval history: When seen today, patient says that she started having bowel movements yesterday afternoon and night. She was unsure whether she had formed stools or not, however after talking to the nurse he says that she did not have formed stool yet. Patient still admits to some bloating, but says that has improved since she started having bowel movements and her abdominal pain has improved as well. No BM today. Patient says the visiting nurse was not able to drain anything from her Pleurex catheter yesterday. This was also confirmed by her nurse. Patient denies any nausea or vomiting. She denies any SOB. Denies any swelling in her lower extremities. Denies any chest pain or fever. - Constitutional Vitals: Abnormal lab results WBC 15.0 K/mcL (4.3-11.1) H 12/29/18 14:33 Hgb 9.9 g/dL (11.5-15.4) L 12/29/18 14:33 Hct 33.8 % (35.3-44.9) L 12/29/18 14:33 MCH 25.8 pg (28.0-33.3) L 12/29/18 14:33 MCHC 29.3 g/dL (31.6-35.5) L 12/29/18 14:33 RDW 17.4 % (11.5-14.5) H 12/29/18 14:33 13.2 K/mcL (1.6-8.9) H 12/29/18 14:33 Nucleated RBCs/100 WBC 0.7 /100 WBC (0) H 12/29/18 14:33 PT 14.7 Seconds (9.4-12.1) H 12/29/18 14:33 ABG pCO2 60 mmHg (35-45) H 12/29/18 15:21 ABG pO2 69 mmHg (85-104) L 12/29/18 15:21 ABG HCO3 41 mEq/L (21-27) H 12/29/18 15:21 ABG Total CO2 43 mEq/L (20-26) H 12/29/18 15:21 ABG O2 Saturation 93 % (95-98) L 12/29/18 15:21 ABG Base Excess 14 mEq/L (-2 to 3) H 12/29/18 15:21 Chloride 93 mEq/L (98-107) L 12/29/18 14:33 Carbon Dioxide 34 mEq/L (23-29) H 12/29/18 14:33 0.41 mg/dL (0.60-1.20) L 12/29/18 14:33 32 (6-26) H 12/29/18 14:33 Glucose 126 mg/dL (70-105) H 12/29/18 14:33 POC Glucose 116 mg/dL (70-99) H 01/01/19 08:13 318 Units/L (34-104) H 12/29/18 14:33 2.7 g/dL (3.5-5.7) L 12/29/18 14:33 3.8 g/dL (2.4-3.5) H 12/29/18 14:33 0.7 (1.1-2.2) L 12/29/18 14:33 Trace mg/dL (Negative) H 12/29/18 17:15 Moderate (Negative) H 12/29/18 17:15 2.0 mg/dL (Normal) H 12/29/18 17:15 Ur Squamous Epith Cells Many per lpf (None-Few) H 12/29/18 17:15 Vancomycin Trough 20 mcg/mL (5-10) H 12/31/18 06:14 General appearance: Present: cooperative, no acute distress, obese Exam: A&Ox3. - Head Head exam: Present: normal inspection - Eye Eye exam: Present: normal appearance, sclera anicteric. Absent: conjuntiva pink - Respiratory Respiratory exam: Present: CTAB. Absent: accessory muscle use, respiratory distress, rhonchi, wheezes - Cardiovascular Cardiovascular exam: Present: +S1, +S2, tachycardia. Absent: diastolic murmur, +S3, +S4, systolic murmur - GI/Abdominal GI/Abdominal exam: Present: distended, hyperactive bowel sounds, soft. Absent: guarding, mass, rebound, tenderness Additional comments: Pleurex catheter on R lower thoracic region intact with no signs of drainage, bleeding, pus, or erythema. - Extremities Exam Extremities exam: Present: full ROM, normal capillary refill, normal inspection. Absent: calf tenderness, joint swelling, pedal edema, tenderness Additional comments: Pedal pulses +2/4 b/l. - Psychiatric Psychiatric exam: Present: normal affect, normal mood Palliative Quality Palliative Quality: Screen for Code Status: Yes, Screen for Goals of Care: Yes, Screen for Pain: Yes, If Pain Regimen Started, Initiate Bowel Regimen: Yes, Screen for Nausea/Vomitting: Yes Code Status: 12/29/18 23:13 Resuscitation Status: Active [RES] Routine Comment: Resuscitation Status: DNR-Comfort Care - Labs CBC & Chem 7: 12/29/18 14:33 12/29/18 14:33 Labs: Laboratory Results - last 24 hr 12/31/18 12/31/18 12/31/18 07:19 10:52 16:36 POC Glucose 121 H 130 H 156 H 01/01/19 08:13 POC Glucose 116 H - Impressions Impressions Chest Ultrasound 12/31/18 10:50 IMPRESSION: No drainable fluid collection is identified. D/ / Dieter Mckeon MD / Dieter Mckeon MD Interpreting Provider: Dieter Mckeon MD - ABG Interpretation ABG results: ABG ABG pH 7.44 pH Units (7.32-7.45) 12/29/18 15:21 ABG pCO2 60 mmHg (35-45) H 12/29/18 15:21 ABG pO2 69 mmHg (85-104) L 12/29/18 15:21 ABG O2 Saturation 93 % (95-98) L 12/29/18 15:21 PT/INR, D-dimer PT 14.7 Seconds (9.4-12.1) H 12/29/18 14:33 Consult Discharge Plan - Plan Referrals: Mick Langford MD [Primary Care Provider] - Prescriptions: LORazepam Oral Conc [Ativan Oral Conc] 0.5 mg PO Q6HR PRN 7 Days #30 mls PRN Reason: Anxiety Morphine Sulfate SR (12 HR) [MS Contin] 1 tab PO Q12HR 7 Days #14 tab MORPHINE SUL Oral CONC [Roxanol Oral Conc] 5 mg SL Q2H PRN 7 Days #30 oral.syg PRN Reason: dyspnea/breakthrough pain <[id number] - Last Filed: 01/01/19 18:03> Date of Encounter: 01/01/19 - Time Spent With Patient Total time spent is greater than 50% in coordination of care (as documented) at patient's floor/unit and/or counseling patient: - Constitutional Vitals: Abnormal lab results WBC 15.0 K/mcL (4.3-11.1) H 12/29/18 14:33 Hgb 9.9 g/dL (11.5-15.4) L 12/29/18 14:33 Hct 33.8 % (35.3-44.9) L 12/29/18 14:33 MCH 25.8 pg (28.0-33.3) L 12/29/18 14:33 MCHC 29.3 g/dL (31.6-35.5) L 12/29/18 14:33 RDW 17.4 % (11.5-14.5) H 12/29/18 14:33 13.2 K/mcL (1.6-8.9) H 12/29/18 14:33 Nucleated RBCs/100 WBC 0.7 /100 WBC (0) H 12/29/18 14:33 PT 14.7 Seconds (9.4-12.1) H 12/29/18 14:33 ABG pCO2 60 mmHg (35-45) H 12/29/18 15:21 ABG pO2 69 mmHg (85-104) L 12/29/18 15:21 ABG HCO3 41 mEq/L (21-27) H 12/29/18 15:21 ABG Total CO2 43 mEq/L (20-26) H 12/29/18 15:21 ABG O2 Saturation 93 % (95-98) L 12/29/18 15:21 ABG Base Excess 14 mEq/L (-2 to 3) H 12/29/18 15:21 Chloride 93 mEq/L (98-107) L 12/29/18 14:33 Carbon Dioxide 34 mEq/L (23-29) H 12/29/18 14:33 0.41 mg/dL (0.60-1.20) L 12/29/18 14:33 32 (6-26) H 12/29/18 14:33 Glucose 126 mg/dL (70-105) H 12/29/18 14:33 POC Glucose 123 mg/dL (70-99) H 01/01/19 16:11 318 Units/L (34-104) H 12/29/18 14:33 2.7 g/dL (3.5-5.7) L 12/29/18 14:33 3.8 g/dL (2.4-3.5) H 12/29/18 14:33 0.7 (1.1-2.2) L 12/29/18 14:33 Trace mg/dL (Negative) H 12/29/18 17:15 Moderate (Negative) H 12/29/18 17:15 2.0 mg/dL (Normal) H 12/29/18 17:15 Ur Squamous Epith Cells Many per lpf (None-Few) H 12/29/18 17:15 Vancomycin Trough 20 mcg/mL (5-10) H 12/31/18 06:14 - Attending Attestation I saw and evaluated the patient. Discussed with resident and agree with residents findings and plan as documented in the residents note except as follow: I examined patient and had a discussion with her about her plan for discharge, patient is still waiting to be discharged to SNF with hospice, but she would like to be optimized before discharge. Patient is Pleurx catheter to be checked tomorrow, decision to be made if the previous catheter is to be removed or unclogged. Patient had a couple of good bowel movement overnight, and feel less congested, however there were no formed stool. Will continue current management for constipation abdomen still feels firm and distended. Plan is for possible discharge tomorrow to SNF with [facility]. Palliative Quality Code Status: 12/29/18 23:13 Resuscitation Status: Active [RES] Routine Comment: Resuscitation Status: DNR-Comfort Care - Labs CBC & Chem 7: 12/29/18 14:33 12/29/18 14:33 Labs: Laboratory Results - last 24 hr 12/31/18 12/31/18 12/31/18 07:19 10:52 16:36 POC Glucose 121 H 130 H 156 H 12/31/18 01/01/19 01/01/19 22:06 08:13 11:30 POC Glucose 145 H 116 H 122 H 01/01/19 16:11 POC Glucose 123 H - ABG Interpretation ABG results: ABG ABG pH 7.44 pH Units (7.32-7.45) 12/29/18 15:21 ABG pCO2 60 mmHg (35-45) H 12/29/18 15:21 ABG pO2 69 mmHg (85-104) L 12/29/18 15:21 ABG O2 Saturation 93 % (95-98) L 12/29/18 15:21 PT/INR, D-dimer PT 14.7 Seconds (9.4-12.1) H 12/29/18 14:33
[2019-01-01] MEDS: *HR* Morphine Sulfate SR (12 HR) 15 MG TABLET.ER PO SCH (11:58)
[2019-01-02] MEDS: Ipratropium/Albuterol Neb 3 ML IH SCH ×5 (00:15→15:38)
[2019-01-02] MEDS: Milk and Molasses Enema 200 ML RC SCH ×4 (01:25→06:20)
[2019-01-02] MEDS: *HR* Morphine Sulfate SR (12 HR) 15 MG TABLET.ER PO SCH ×2 (01:26→11:24)
[2019-01-02] MEDS: MORPHINE SUL Oral CONC 10 MG/0.5 ML ORAL.SYG SL PRN ×4 (02:36→18:10)
[2019-01-02] MEDS: Piperacillin/Tazobactam 3.375 GM in 0.9 % Sodium Chloride Mini Bag 100 ML IVPB SCH ×3 (02:41→17:54)
[2019-01-02] MEDS: *HR* Heparin 5,000 UNIT/ML VIAL SQ SCH ×2 (06:19→17:54)
[2019-01-02] MEDS ORDERED: Milk and Molasses Enema 200 ML RC PRN (08:35)
[2019-01-02] MEDS: Insulin LISPRO 300 UNITS/3 ML VIAL SQ SCH ×3 (08:41→16:20)
[2019-01-02] MEDS ORDERED: *HR* LORazepam Oral Conc 2 MG/ML PO ONE (08:41)
[2019-01-02] MEDS: Sennosides/Docusate Sodium TABLET PO SCH (09:11)
[2019-01-02] MEDS: Lactulose Oral Soln 20 GM/30 ML UDC PO SCH ×2 (09:11→16:16)
--- NOTE | 2019-01-02 12:24 | Palliative Progress Note ---
Date of Encounter: 01/02/19 Time of Encounter: 11:45 - Assessment and plan (1) Dyspnea Current Visit: No Status: Acute Assessment and plan: Patient tolerating Oxy mask O2 at 8L. Night time use of Bipap. Position for comfort. Patient with left pleurx in. Qualifiers: Dyspnea type: unspecified Qualified Code(s): R06.00 - Dyspnea, unspecified (2) Malignant pleural effusion Current Visit: Yes Status: Acute Assessment and plan: Patient pleurx is not functioning. Called Dr. Rodriguez and he reported that official consult was not placed for him to assess pleurx catheter. States he can see tomorrow if consult is placed. Patient with lung cancer. (3) Cancer associated pain Current Visit: No Status: Acute Assessment and plan: Patient pain controlled with MS contin and BTP Roxanol. (4) Lung cancer Current Visit: Yes Status: Acute Assessment and plan: Terminal diagnosis of lung cancer. Patient transitioning to ECF with Hospice care. Sister Amparo is POA. All comfort medication and DNR state form in DC packet. O2 and Bipap being set-up at ECF. Qualifiers: Laterality: unspecified laterality Lung location: unspecified part of lung Qualified Code(s): C34.90 - Malignant neoplasm of unspecified part of unspecified bronchus or lung (5) Goals of care, counseling/discussion Current Visit: Yes Status: Acute (6) Therapeutic opioid-induced constipation (OIC) Current Visit: Yes Status: Acute Assessment and plan: Patient having multiple liquid to semi-formed stool. Tolerating well and reports feeling better. Continue Miralax and Senna. (7) Anxiety Current Visit: No Status: Acute Assessment and plan: PRN Ativan (8) Palliative care encounter Current Visit: Yes Status: Acute - Time Spent With Patient Total time spent is greater than 50% in coordination of care (as documented) at patient's floor/unit and/or counseling patient: Greater than 35 minutes - Subjective Interval history: Patient sitting up in bed. Alert, denies pain at present. Continuing to have large amount of liquid to semi-form stool. Nurse reports four large BMs. Patient reports feeling much better overall. Plan for ECF transition today. - Constitutional Vitals: Abnormal lab results WBC 15.0 K/mcL (4.3-11.1) H 12/29/18 14:33 Hgb 9.9 g/dL (11.5-15.4) L 12/29/18 14:33 Hct 33.8 % (35.3-44.9) L 12/29/18 14:33 MCH 25.8 pg (28.0-33.3) L 12/29/18 14:33 MCHC 29.3 g/dL (31.6-35.5) L 12/29/18 14:33 RDW 17.4 % (11.5-14.5) H 12/29/18 14:33 13.2 K/mcL (1.6-8.9) H 12/29/18 14:33 Nucleated RBCs/100 WBC 0.7 /100 WBC (0) H 12/29/18 14:33 PT 14.7 Seconds (9.4-12.1) H 12/29/18 14:33 ABG pCO2 60 mmHg (35-45) H 12/29/18 15:21 ABG pO2 69 mmHg (85-104) L 12/29/18 15:21 ABG HCO3 41 mEq/L (21-27) H 12/29/18 15:21 ABG Total CO2 43 mEq/L (20-26) H 12/29/18 15:21 ABG O2 Saturation 93 % (95-98) L 12/29/18 15:21 ABG Base Excess 14 mEq/L (-2 to 3) H 12/29/18 15:21 Chloride 93 mEq/L (98-107) L 12/29/18 14:33 Carbon Dioxide 34 mEq/L (23-29) H 12/29/18 14:33 0.41 mg/dL (0.60-1.20) L 12/29/18 14:33 32 (6-26) H 12/29/18 14:33 Glucose 126 mg/dL (70-105) H 12/29/18 14:33 POC Glucose 123 mg/dL (70-99) H 01/01/19 16:11 318 Units/L (34-104) H 12/29/18 14:33 2.7 g/dL (3.5-5.7) L 12/29/18 14:33 3.8 g/dL (2.4-3.5) H 12/29/18 14:33 0.7 (1.1-2.2) L 12/29/18 14:33 Trace mg/dL (Negative) H 12/29/18 17:15 Moderate (Negative) H 12/29/18 17:15 2.0 mg/dL (Normal) H 12/29/18 17:15 Ur Squamous Epith Cells Many per lpf (None-Few) H 12/29/18 17:15 Vancomycin Trough 20 mcg/mL (5-10) H 12/31/18 06:14 General appearance: Present: no acute distress, obese - Head Head exam: Present: atraumatic, normal inspection Additional comments: Patient is bald - Eye Eye exam: Present: PERRL Pupils: Present: PERRL - ENT ENT exam: Present: mucous membranes moist - Neck Neck exam: Present: full ROM - Respiratory Respiratory exam: Present: decreased breath sounds - Expanded Respiratory Exam Location: decreased breath sounds: Left, Right, Lower, wheezes: Right, Upper - Cardiovascular Cardiovascular exam: Present: RRR, +S1, +S2 - GI/Abdominal GI/Abdominal exam: Present: normal bowel sounds, soft - Rectal Rectal exam: Present: tenderness Additional comments: Patient with recent impaction. Now having liquid to semi-formed stool. Reports feeling better. - Extremities Exam Extremities exam: Present: pedal edema (Bilateral pedal edema 2+ pitting) - Neurological Exam Neurological exam: Present: alert - Skin Skin exam: Present: pallor, warm Palliative Quality Palliative Quality: Screen for Code Status: Yes, Screen for Goals of Care: Yes, Screen for Pain: Yes, If Pain Regimen Started, Initiate Bowel Regimen: Yes, Screen for Nausea/Vomitting: Yes Code Status: 12/29/18 23:13 Resuscitation Status: Active [RES] Routine Comment: Resuscitation Status: DNR-Comfort Care - Labs CBC & Chem 7: 12/29/18 14:33 12/29/18 14:33 Labs: Laboratory Results - last 24 hr 12/31/18 01/01/19 01/01/19 22:06 11:30 16:11 POC Glucose 145 H 122 H 123 H - Impressions Impressions Chest X-Ray 12/29/18 13:53 IMPRESSION: 1. Small-moderate right pleural effusion with extensive consolidation associated with the right lung neoplasm. Associated atelectasis. PleurX drain unchanged. 2. Left lung is well aerated. D/ / 12/29/2018 14:38:26 Ike Unger MD / juan Interpreting Provider: Ike Unger MD - ABG Interpretation ABG results: ABG ABG pH 7.44 pH Units (7.32-7.45) 12/29/18 15:21 ABG pCO2 60 mmHg (35-45) H 12/29/18 15:21 ABG pO2 69 mmHg (85-104) L 12/29/18 15:21 ABG O2 Saturation 93 % (95-98) L 12/29/18 15:21 PT/INR, D-dimer PT 14.7 Seconds (9.4-12.1) H 12/29/18 14:33 Consult Discharge Plan - Plan Referrals: Mick Langford MD [Primary Care Provider] - Prescriptions: LORazepam Oral Conc [Ativan Oral Conc] 0.5 mg PO Q6HR PRN 7 Days #30 mls PRN Reason: Anxiety Morphine Sulfate SR (12 HR) [MS Contin] 1 tab PO Q12HR 7 Days #14 tab MORPHINE SUL Oral CONC [Roxanol Oral Conc] 5 mg SL Q2H PRN 7 Days #30 oral.syg PRN Reason: dyspnea/breakthrough pain
--- NOTE | 2019-01-02 14:20 | Event Note ---
Date of Encounter: 01/02/19 Time of Encounter: 12:[address] Rodriguez of f/u with Dr. Rodriguez regarding pleurx catheter. Patient to be DC'd to ECF with pleurx in place. Patient to transition to hospice care at ECF. Patient tolerating Oxy mask at 8L. Comfort medication Prescriptions and DNR State form completed for DC to ECF.
--- NOTE | 2019-01-02 14:52 | Physician Discharge Referral ---
[facility] Referral Info Transfer To: hospice - Diagnosis (1) COPD (chronic obstructive pulmonary disease) Status: Acute (2) Lung cancer Status: Acute - Transfer Medications Prescriptions: LORazepam Oral Conc [Ativan Oral Conc] 0.5 mg PO Q6HR PRN 7 Days #30 mls PRN Reason: Anxiety Morphine Sulfate SR (12 HR) [MS Contin] 1 tab PO Q12HR 7 Days #14 tab MORPHINE SUL Oral CONC [Roxanol Oral Conc] 5 mg SL Q2H PRN 7 Days #30 oral.syg PRN Reason: dyspnea/breakthrough pain Home Medications: Haloperidol [Haldol] 5 mg PO QID PRN #14 tablet 12/30/18 [Rx] LORazepam Oral Conc [Ativan Oral Conc] 2 mg PO Q6HR 7 Days #20 mls 12/30/18 [Rx] Morphine Oral CONC [Roxanol] 0.5 ml PO Q4H PRN 7 Days #30 ml 12/30/18 [Rx] LORazepam Oral Conc [Ativan Oral Conc] 0.5 mg PO Q6HR PRN 7 Days #30 mls 12/31/18 [Rx] MORPHINE SUL Oral CONC [Roxanol Oral Conc] 5 mg SL Q2H PRN 7 Days #30 oral.syg 12/31/18 [Rx] Morphine Sulfate SR (12 HR) [MS Contin] 1 tab PO Q12HR 7 Days #14 tab 12/31/18 [Rx] Allergies/Adverse Reactions: Allergy/AdvReac Type Severity Reaction Status Date / Time No Known Allergies Allergy Verified 12/30/18 09:13 - Respiratory Orders Smoking Cessation: Smoking cessation has been advised. For more information, call the [place] Tobacco Quit Line at 7-290-RQDU-NOW. CERTIFICATION: I certify that the transfer of the above named patient to an Extended Care Facility is necessary for the continuing treatment of the diagnosis listed. The above information is true and accurate reflection of patient's current condition. Confidential - Redisclosure prohibited without a patient's written consent.
[2019-01-02 15:43] VITALS: BP 94/60
[2019-01-02] MEDS: *HR* LORazepam Oral Conc 2 MG/ML SL PRN (16:25)
== END 2019-01-02 18:18 | disposition hospice, inpatient (51) | DRG 133 ==
LOC: 2NENU 13:43 → EMEROOARM 13:43 → SUATTDRO 19:02 → 2NENU 20:47
PROVIDERS: ADMIT Student in an Organized Health Care Education/Training Program; ATTEND Internal Medicine